=== PATIENT | female | born 1935 | race Caucasian/White ===

== ENCOUNTER 2017-03-30 01:04 | Inpatient (IN) | payer OTHER, MEDICARE ==
[~2017-03-30] VITALS: Ht 144.8 cm; Wt 81.6 kg
[~2017-03-30 01:04] MED LIST: ASPI-495 PO; CARV12.5 PO; CLOP75TA2 PO; DILT240T8 PO; DISO150C4 PO; FLUT1DIS3 IH; HYDR100T27 PO; INSU100V7 SQ; LIRA0.6P SQ; OLME1TAB3 PO; POTA10CA43 PO; SIMV10TA6 PO; SITA1TAB6 PO
--- NOTE | 2017-03-30 01:09 | NUR ---
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 pt denies ko. received pt aaox4 no acute distress noted, resp even and unlabored. er md at bedside to eval pt with orders received. pt son at bedside.
[2017-03-30] MEDS ORDERED: HYDROMORPHONE 1 MG/1 ML DISP.SYRIN ONE (01:12)
[2017-03-30] MEDS ORDERED: ONDANSETRON HCL/PF 4 MG/2 ML VIAL ONE ×2 (01:12→06:31)
--- NOTE | 2017-03-30 01:15 | NUR ---
started sl 18g to R ac, blood drawn and sent to lab.
[2017-03-30] MEDS ORDERED: ONDANSETRON HCL/PF 4 MG/2 ML VIAL IVP ONE (01:30)
[2017-03-30] MEDS ORDERED: HYDROMORPHONE INJ 2 MG/ML DISP.SYRIN IV ONE (01:30)
[2017-03-30] MEDS ORDERED: ESOM40CA PO (01:32)
[2017-03-30] MEDS ORDERED: METO-304 PO (01:32)
[2017-03-30] MEDS ORDERED: TRAZ-144 PO (01:32)
[2017-03-30] MEDS ORDERED: RANI150C4 PO (01:32)
[2017-03-30] MEDS ORDERED: [UNRECOGNIZED DRUG - CODE] PO (01:32)
[2017-03-30 01:36] LABS: BASOPHILS % (AUTO) 0.2 % (0.0-2.0); EOSINOPHILS # (AUTO) 0.3 /CMM (0.0-0.7); EOSINOPHILS % (AUTO) 3.7 % (0.0-6.0); HEMATOCRIT 40 % (33-45); HEMOGLOBIN 12.9 g/dL (11.5-14.8); LYMPHOCYTES % (AUTO) 21.4 % (20.0-44.0); MEAN CORPUSCULAR HEMOGLOBIN 26 PG (26.0-33.0); MEAN CORPUSCULAR HGB CONC 33 g/dl (31.0-36.0); MEAN CORPUSCULAR VOLUME 79 fL (82-100); MONOCYTES # (AUTO) 0.6 /CMM (0.1-1.30); NEUTROPHILS # (AUTO) 6.2 /CMM (1.8-8.9); NEUTROPHILS % (AUTO) 67.7 % (43.0-81.0); PLATELET COUNT (AUTO) 258 /CMM (150-450); RDW COEFFICIENT OF VARIATION 14.9 (11.5-15.0); RED BLOOD CELL COUNT(AUTO) 5.01 MIL/uL (4.0-5.2); WHITE BLOOD COUNT (AUTO) 9.1 K/uL (4.3-11.0)
[2017-03-30 01:43] LABS: CALCIUM, SERUM 8.8 mg/dL (8.5-10.1); CREATININE 1.4 mg/dL (0.6-1.3)
--- NOTE | 2017-03-30 01:45 | NUR ---
er md spoke to pt and pt son regarding reduction of L forearm fracture under moderate sedation, all risks explained by er md. pt and pt son verbalize understanding. consent signed by pt. pt on cardiac monitoring, continuous pox, o2@2l/nc.
[2017-03-30 01:48] LABS: INR 0.96 (0.87-1.13); PROTHROMBIN TIME 10.2 SECS (9.5-12.7)
[2017-03-30] MEDS ORDERED: ETOMIDATE 2 MG/ML VIAL ONE (01:48)
[2017-03-30] MEDS ORDERED: IV SET PRIMARY 1 EA INFUS.SET MC ONE (01:48)
[2017-03-30] MEDS ORDERED: IV NS 0.9% 500 ML IV ONE (01:48)
[2017-03-30 01:53] LABS: TROPONIN I 0.021 ng/mL (0.00-0.056)
--- NOTE | 2017-03-30 01:57 | NUR ---
er md delacruz, emt rachel, rn aravind, rt diane and myself at bedside for moderate sedation.
[2017-03-30 01:58] LABS: THYROID STIMULATING HORMONE 3.159 uIU/mL (0.358-3.74)
--- NOTE | 2017-03-30 02:09 | NUR ---
L arm post reduction xray done.
--- NOTE | 2017-03-30 02:13 | NUR ---
pt aaox4 no acute distress noted, resp even and unlabored. call light within reach. pt son at bedside.
--- NOTE | 2017-03-30 02:24 | NUR ---
pt transported to radiology for ct head.
[2017-03-30] MEDS ORDERED: IV NS 0.9% 1,000 ML BAG IV ONE (02:30)
[2017-03-30] MEDS ORDERED: ETOMIDATE 2 MG/ML VIAL IV ONE (02:30)
[2017-03-30] MEDS ORDERED: HOME MED MISCELLANEOUS PO SCH (03:00)
[2017-03-30] MEDS ORDERED: ASPIRIN 325 MG TABLET PO ONE (03:30)
--- NOTE | 2017-03-30 03:31 | NUR ---
report given to tele 1 rn. will transport pt via acls protocol.
[2017-03-30] MEDS ORDERED: ASPIRIN 81 MG TAB.CHEW ONE (03:32)
[2017-03-30 05:00] VITALS: BP 168/86
[2017-03-30] MEDS ORDERED: DEXTROSE 50%-WATER 50 ML DISP.SYRIN IV PRN (05:00)
[2017-03-30] MEDS ORDERED: INSULIN REGULAR, HUMAN 100 UNIT/ML 3 ML VIAL SQ PRN (05:00)
[2017-03-30] MEDS ORDERED: hydrALAZINE HCL 25 MG TABLET PO PRN (05:30)
[2017-03-30] MEDS ORDERED: ACETAMINOPHEN 325 MG TABLET PO PRN (05:30)
[2017-03-30] MEDS: BLOOD SUGAR DIAGNOSTIC 1 EACH STRIP IN SCH ×3 (06:06→17:04)
[2017-03-30] MEDS ORDERED: HYDROMORPHONE INJ 2 MG/ML DISP.SYRIN ONE (06:07)
[2017-03-30] MEDS ORDERED: IV SET PRIMARY PUMP SET 1 EA INFUS.SET MC ONE (06:13)
[2017-03-30] MEDS ORDERED: IV NS 0.9% 1,000 ML ONE (06:13)
[2017-03-30] MEDS: HYDROMORPHONE INJ 2 MG/ML DISP.SYRIN IV PRN ×3 (06:20→17:33)
[2017-03-30] MEDS: IV NS 0.9% 1,000 ML IV PRN (06:21)
--- NOTE | 2017-03-30 06:30 | NUR ---
admitted pt from ER, pt alert oriented, ambulates with a cane, pt fell at home, sustained a comminuted fracture and dislocation of radius and ulnar LUE. with skin abrasion on her left knee. voided to bathroom with assist, left arm elevated with pillow no numbness, tender to touch, good peripheral blood return.bp elevated due to pain. called Dr. Barrow for orders, spoke with md and she will place orders in the computer.started iv fluids, given dilaudid for pain with good relief and with zofran.will continue to monitor,sinus rhythm on monitor.
[2017-03-30] MEDS: ONDANSETRON HCL/PF 4 MG/2 ML VIAL IVP PRN ×2 (06:35→12:49)
--- NOTE | 2017-03-30 07:57 | NUR ---
rn inital notes received pt awake and alert; able to verbalize needs. on o2 inh via NC; NAD. left arm with dressing/splint; skin and circulation wnl. iv access in place with ivf infusing well. SR on the monitor. all needs attended. will monitor accordingly
[2017-03-30 08:00] VITALS: BP 168/86
[2017-03-30] MEDS: CLOPIDOGREL BISULFATE 75 MG TABLET PO SCH ×3 (08:43→11:35)
[2017-03-30] MEDS: PANTOPRAZOLE 40 MG TABLET.DR PO SCH (08:43)
[2017-03-30] MEDS: CARVEDILOL 12.5 MG TABLET PO SCH ×2 (08:44→17:08)
--- NOTE | 2017-03-30 08:46 | NUR ---
rn notes pt seen and assessed by anamaria nice; plavix dose held at this time
[2017-03-30 08:50] VITALS: BP 165/70
[2017-03-30] MEDS: INSULIN DETEMIR 100 UNIT/ML CARTRIDGE SQ SCH (09:00)
--- NOTE | 2017-03-30 10:57 | NUR ---
RN NOTES PT ASSESSEDBY DR VELAZQUEZ; INFORMED MD RE PTS BP LEVELS; OK WITH MD TO RESUME DIET
[2017-03-30] MEDS ORDERED: DISOPYRAMIDE PHOSPHATE 100 MG PO SCH (11:00)
[2017-03-30 11:22] VITALS: BP 149/69
[2017-03-30 16:00] VITALS: BP 132/54
[2017-03-30] MEDS: TRAZODONE 50 MG TABLET PO SCH (17:07)
[2017-03-30] MEDS: SIMVASTATIN 10 MG TABLET PO SCH (17:08)
--- NOTE | 2017-03-30 18:42 | NUR ---
rn closing notes PT ALERT AND ORIENTED. LEFT ARM SPLINT/DRESSING IN PLACE; SKIN AND CIRCULATION WNL. PT ABLE TO MOVE EXT OF THE AFFECTED SITE; DENIES NUMBNESS AND TINGLING. ALL MEDS GIVEN. NO SIGNIFICANT NEUROLOGICAL CHANGES NOTED. SAFETY ENSURED. PRN MED GIVEN FOR PAIN MANAGEMENT; VS STABLE. WILL ENDORSE TO NEXT SHIFT FOR CONTINUITY OF CARE IN STABLE CONDITION
[2017-03-30 20:00] VITALS: BP 136/73
[2017-03-31] VITALS: BP_SYST 103; BP_DIAS 58; BP_DIAS 69
[2017-03-31] MEDS: BLOOD SUGAR DIAGNOSTIC 1 EACH STRIP IN SCH ×4 (00:56→17:29)
[2017-03-31] MEDS: HYDROMORPHONE INJ 2 MG/ML DISP.SYRIN IV PRN ×3 (03:36→21:16)
--- NOTE | 2017-03-31 03:36 | NUR ---
PRN DILAUDID 2MG IV GIVEN FOR LEFT ARM PAIN 08/11, TOLERATED WELL AT THIS TIME, PRIMARY NURSE MADE AWARE.
[2017-03-31] MEDS: IV NS 0.9% 1,000 ML IV PRN ×2 (03:42→17:03)
[2017-03-31 04:00] VITALS: BP 103/62
[2017-03-31 06:34] LABS: CALCIUM, SERUM 8.4 mg/dL (8.5-10.1); CREATININE 1.3 mg/dL (0.6-1.3); MAGNESIUM 1.9 mg/dL (1.8-2.4); PHOSPHORUS 4.6 mg/dL (2.5-4.9); POTASSIUM 3.4 mmol/L (3.5-5.1)
[2017-03-31 06:36] LABS: BASOPHILS % (AUTO) 0.2 % (0.0-2.0); EOSINOPHILS # (AUTO) 0.1 /CMM (0.0-0.7); EOSINOPHILS % (AUTO) 0.6 % (0.0-6.0); HEMATOCRIT 38 % (33-45); HEMOGLOBIN 12.1 g/dL (11.5-14.8); LYMPHOCYTES % (AUTO) 11.4 % (20.0-44.0); MEAN CORPUSCULAR HEMOGLOBIN 26 PG (26.0-33.0); MEAN CORPUSCULAR HGB CONC 32 g/dl (31.0-36.0); MEAN CORPUSCULAR VOLUME 80 fL (82-100); MONOCYTES # (AUTO) 0.6 /CMM (0.1-1.30); MONOCYTES % (AUTO) 6.7 % (2.0-12.0); NEUTROPHILS # (AUTO) 6.9 /CMM (1.8-8.9); NEUTROPHILS % (AUTO) 81.1 % (43.0-81.0); PLATELET COUNT (AUTO) 228 /CMM (150-450); RED BLOOD CELL COUNT(AUTO) 4.69 MIL/uL (4.0-5.2); WHITE BLOOD COUNT (AUTO) 8.5 K/uL (4.3-11.0)
[2017-03-31 08:00] VITALS: BP 106/52
--- NOTE | 2017-03-31 08:56 | NUR ---
Patient sleeping at this time. Not rousable to touch. Will reassess when awake. Addendum: 03/31/17 at 0857 by PASCALE ROMERO RN Amended: Links added.
[2017-03-31] MEDS ORDERED: POTASSIUM CHLORIDE 20 MEQ TAB.PRT.SR PO SCH (10:00)
[2017-03-31 10:29] LABS: IRON, SERUM 52 ug/dl (50-175); TOTAL IRON BINDING CAPACITY 341 ug/dl (250-450)
[2017-03-31] MEDS: PANTOPRAZOLE 40 MG TABLET.DR PO SCH (10:35)
[2017-03-31] MEDS: CARVEDILOL 12.5 MG TABLET PO SCH ×2 (10:41→17:14)
[2017-03-31 10:43] LABS: FERRITIN 26 ng/mL (8-388)
[2017-03-31] MEDS: INSULIN DETEMIR 100 UNIT/ML CARTRIDGE SQ SCH (11:01)
[2017-03-31] MEDS: POTASSIUM CHLORIDE 20 MEQ TAB.PRT.SR PO SCH ×3 (13:00→17:30)
[2017-03-31 16:00] VITALS: BP 97/55
[2017-03-31] MEDS: ONDANSETRON HCL/PF 4 MG/2 ML VIAL IVP PRN ×2 (17:03→22:47)
[2017-03-31] MEDS: SIMVASTATIN 10 MG TABLET PO SCH (17:58)
[2017-03-31] MEDS: TRAZODONE 50 MG TABLET PO SCH ×2 (17:58→17:59)
--- NOTE | 2017-03-31 19:30 | NUR ---
RN INITIAL NOTES RECEIVED PATIENT IN BED, AWAKE, ALERT AND ORIENTED X4, ABLE TO VERBALIZE NEEDS, FAMILY MEMBERS AT BEDSIDE. BREATHING EVEN AND NONLABORED, TOLERATING O2 VIA NC @ 2LPM, NO S/S OF RESPIRATORY DISTRESS NOTED. IV SITE PATENT AND INTACT, FLUSHED WITH NS, FREE FROM ANY S/S OF INFILTRATION OR PHLEBITIS, IVF ONGOING ORDERED. NOTED WITH LEFT ARM SPLINT, INTACT, CAPILLARY BLOOD REFILL <3 SECONDS. PLAN OF CARE DISCUSSED WITH THE PATIENT, WHO VERBALIZES UNDERSTANDING. CALL LIGHT LEFT WITHIN EASY REACH, BED IN LOWEST AND LOCKED POSITION. WILL CONTINUE TO CLOSELY MONITOR
[2017-03-31 20:00] VITALS: BP_SYST 115; BP_SYST 127; BP_SYST 132; BP_DIAS 71; BP_DIAS 73; BP_DIAS 81
[2017-03-31] MEDS: DISOPYRAMIDE PHOSPHATE 150 MG CAPSULE PO SCH (20:21)
--- NOTE | 2017-03-31 21:43 | NUR ---
RN NOTES CODE STATUS VERIFIED WITH PATIENT AND FAMILY MEMBERS, FULL CODE AT THIS TIME. PATIENT REQUESTING FOR CONSULT WITH CRUISE COUNSELOR TO DISCUSS ADVANCE DIRECTIVES FURTHER. ALL QUESTIONS ANSWERED AT THIS TIME. WILL CONTINUE TO CLOSELY MONITOR
[2017-04-01] VITALS: BP 132/71
[2017-04-01] MEDS: BLOOD SUGAR DIAGNOSTIC 1 EACH STRIP IN SCH ×3 (00:21→12:05)
[2017-04-01] MEDS: IV NS 0.9% 1,000 ML IV PRN (00:21)
[2017-04-01] MEDS: HYDROMORPHONE INJ 2 MG/ML DISP.SYRIN IV PRN ×2 (02:48→10:19)
--- NOTE | 2017-04-01 03:00 | NUR ---
RN NOTES 0248: ADMINISTERED PAIN MEDICATION PRESCRIBED. PATIENT C/O 10/10 LEFT ARM PAIN. 0330: PATIENT VERBALIZES DECREASE IN PAIN, MEDICATION EFFECTIVE
[2017-04-01 04:00] VITALS: BP 141/69
--- NOTE | 2017-04-01 06:46 | NUR ---
TEXTED DR. MARINO FOR MRI APPROVAL.
--- NOTE | 2017-04-01 07:00 | NUR ---
RN NOTES PATIENT ENDORSED TO THE AM SHIFT NURSE FOR OSCAR.
[2017-04-01 07:15] LABS: BASOPHILS % (AUTO) 0.2 % (0.0-2.0); EOSINOPHILS # (AUTO) 0.2 /CMM (0.0-0.7); EOSINOPHILS % (AUTO) 3.2 % (0.0-6.0); HEMATOCRIT 36 % (33-45); HEMOGLOBIN 11.6 g/dL (11.5-14.8); LYMPHOCYTES # (AUTO) 1.5 /CMM (0.8-4.8); LYMPHOCYTES % (AUTO) 20.3 % (20.0-44.0); MEAN CORPUSCULAR HEMOGLOBIN 26 PG (26.0-33.0); MEAN CORPUSCULAR HGB CONC 33 g/dl (31.0-36.0); MEAN CORPUSCULAR VOLUME 81 fL (82-100); MONOCYTES # (AUTO) 0.7 /CMM (0.1-1.30); MONOCYTES % (AUTO) 8.8 % (2.0-12.0); NEUTROPHILS % (AUTO) 67.5 % (43.0-81.0); PLATELET COUNT (AUTO) 210 /CMM (150-450); RDW COEFFICIENT OF VARIATION 14.9 (11.5-15.0); RED BLOOD CELL COUNT(AUTO) 4.42 MIL/uL (4.0-5.2); WHITE BLOOD COUNT (AUTO) 7.5 K/uL (4.3-11.0)
[2017-04-01 07:37] LABS: ALBUMIN 3.2 g/dL (3.4-5.0); BILIRUBIN,TOTAL 0.3 mg/dL (0.2-1.0); CALCIUM, SERUM 8.1 mg/dL (8.5-10.1); CREATININE 1.6 mg/dL (0.6-1.3); MAGNESIUM 1.8 mg/dL (1.8-2.4); PHOSPHORUS 3.6 mg/dL (2.5-4.9); POTASSIUM 3.9 mmol/L (3.5-5.1); TOTAL PROTEIN, SERUM 5.9 g/dL (6.4-8.2)
[2017-04-01] MEDS: PANTOPRAZOLE 40 MG TABLET.DR PO SCH (08:24)
[2017-04-01] MEDS: CLOPIDOGREL BISULFATE 75 MG TABLET PO SCH (08:24)
[2017-04-01] MEDS: CARVEDILOL 12.5 MG TABLET PO SCH (08:25)
[2017-04-01] MEDS: DISOPYRAMIDE PHOSPHATE 150 MG CAPSULE PO SCH (08:28)
[2017-04-01] MEDS: INSULIN DETEMIR 100 UNIT/ML CARTRIDGE SQ SCH (08:47)
--- NOTE | 2017-04-01 09:25 | NUR ---
DEL/RN: CONSENT CONSENT AND CHECKLIST FOR MRI COMPLETED, PATIENT REFUSED MRI DUE CLAUSTROPHOBIA. MADE AWARE.
[2017-04-01] MEDS ORDERED: CELE100C PO (10:43)
[2017-04-01 12:00] VITALS: BP 135/98
[2017-04-01] MEDS ORDERED: HYDR-548 PO ×2 (14:47→15:03)
[2017-04-01] MEDS ORDERED: HYDROCODONE/APAP 10/325MG 1 EA TABLET PO PRN (15:30)
[2017-04-01 15:46] VITALS: BP 149/83
--- NOTE | 2017-04-01 15:51 | NUR ---
DEL/RN: NOTES ALL DISCHARGE INSTRUCTION GAVE TO PATIENT AND FAMILY MEMBER, VERBALIZE UNDERSTOOD, ALL PATIENT'S BELONGINGS RETURNED AND SIGNED BY PATIENT. H/L REMOVED, NO BLEEDING NOTED. INFORMED PATIENT TO FOLLOW UP WITH PCP FOR MRI, LACEMAKER AND DR. NEWELL ( ORTHO), PATIENT AWARE AND AGREED. ALL DISCHARGE MEDICATION EDUCATION PROVIDED TO PATIENT. PATIENT DENIES PAIN, NO SHORTNESS OF BREATH NOTED, CONDITION STABLE, AWAITING FOR DAUGHTER TO ADMISSION NURSE COORDINATOR. Addendum: 04/01/17 at 1605 by MARCELINO LOVE RN NOTES PATIENT D/C TO HOME VIA WHEEL CHAIR WITH STABLE CONDITION.
== END 2017-04-01 16:08 | disposition home or self-care (01) | DRG 342 ==
LOC: ER 01:47 → MED 03:28 → TELE-TD 03:54 → TELE1 11:50 → MEDSG1 03-31 10:12
PROVIDERS: ADMIT Internal Medicine; ATTEND Internal Medicine
PROC: 0RSPXZZ Reposition Left Wrist Joint, External Approach (ICD-10-PCS; principal; 2017-03-30)
DX: S52.612A Displaced fracture of left ulna styloid process, initial encounter for closed fracture (principal); N17.0 Acute kidney failure with tubular necrosis; G90.8 Other disorders of autonomic nervous system; S63.005A Unspecified dislocation of left wrist and hand, initial encounter; S52.502A Unspecified fracture of the lower end of left radius, initial encounter for closed fracture; Z95.5 Presence of coronary angioplasty implant and graft; E11.9 Type 2 diabetes mellitus without complications; E78.5 Hyperlipidemia, unspecified; J45.909 Unspecified asthma, uncomplicated; M19.90 Unspecified osteoarthritis, unspecified site; I25.10 Atherosclerotic heart disease of native coronary artery without angina pectoris; I34.0 Nonrheumatic mitral (valve) insufficiency; Z87.442 Personal history of urinary calculi; I35.0 Nonrheumatic aortic (valve) stenosis; I10 Essential (primary) hypertension; K42.9 Umbilical hernia without obstruction or gangrene; W19.XXXA Unspecified fall, initial encounter; Y93.9 Activity, unspecified; Y92.009 Unspecified place in unspecified non-institutional (private) residence as the place of occurrence of the external cause; Y99.9 Unspecified external cause status; E66.9 Obesity, unspecified; Z68.39 Body mass index [BMI] 39.0-39.9, adult; I27.2 Other secondary pulmonary hypertension; F40.240 Claustrophobia; E86.0 Dehydration; D32.0 Benign neoplasm of cerebral meninges
CPT/HCPCS: 36415; 70450-TC; 71010-TC; 73090-TC; 80048-TC; 80053-TC; 80061-TC; 82728-TC; 82962-TC; 83540-TC; 83735-TC; 84100-TC; 84439-TC; 84443-TC; 84484-TC; 85025-TC; 85730-TC; 86850-TC; 87081-TC; 93307-TC; 93880-TC; 97001-TC; A4606; J1170; J1815; J2405; J3490; J7030; J7040; Z7610

== ENCOUNTER 2018-05-12 13:19 | Emergency (ER) | payer MEDICARE, OTHER ==
[~2018-05-12] VITALS: Ht 165.1 cm; Wt 88.5 kg
[~2018-05-12 13:19] MED LIST changes: -ASPI-495 PO; +CLOP75TA15 PO; -CLOP75TA2 PO; -DILT240T8 PO; -DISO150C4 PO; +ESOM40CA PO; -FLUT1DIS3 IH; +HYDR-548 PO; -HYDR100T27 PO; +METO-357 PO; +OLME1TAB22 PO; -OLME1TAB3 PO; -POTA10CA43 PO; +RANI150C4 PO; -SITA1TAB6 PO; +TRAZ-182 PO; +[UNRECOGNIZED DRUG - CODE] PO
--- NOTE | 2018-05-12 13:55 | NUR ---
PT BB FAMILY FROM HOME FOR RT FOREARM PAIN S/P FALL WHEN GETTING OUT OF BED. ALL NEEDS ARE ATTENDED KEPT AND COMFORTABLE. PENDING ER MD HEAD
[2018-05-12 14:02] LABS: BASOPHILS % (AUTO) 0.3 % (0.0-2.0); EOSINOPHILS % (AUTO) 1.8 % (0.0-6.0); HEMATOCRIT 38 % (33-45); HEMOGLOBIN 12.7 g/dL (11.5-14.8); LYMPHOCYTES # (AUTO) 1.4 /CMM (0.8-4.8); LYMPHOCYTES % (AUTO) 11.5 % (20.0-44.0); MEAN CORPUSCULAR HGB CONC 34 g/dl (31.0-36.0); MEAN CORPUSCULAR VOLUME 77 fL (82-100); MONOCYTES # (AUTO) 0.5 /CMM (0.1-1.30); MONOCYTES % (AUTO) 4.5 % (2.0-12.0); NEUTROPHILS # (AUTO) 9.9 /CMM (1.8-8.9); NEUTROPHILS % (AUTO) 81.9 % (43.0-81.0); PLATELET COUNT (AUTO) 207 /CMM (150-450); RDW COEFFICIENT OF VARIATION 14.7 (11.5-15.0); RED BLOOD CELL COUNT(AUTO) 4.87 MIL/uL (4.0-5.2)
[2018-05-12 14:11] LABS: CALCIUM, SERUM 9.2 mg/dL (8.5-10.1); CARBON DIOXIDE 28 mmol/L (21-32); CHLORIDE 94 mmol/L (98-107); CREATININE 1.3 mg/dL (0.6-1.3); GLUCOSE 108 mg/dL (74-106); POTASSIUM 3.4 mmol/L (3.5-5.1); SODIUM SERUM 131 mmol/L (136-145); UREA NITROGEN, BLOOD 21 mg/dL (7-18)
[2018-05-12 14:15] LABS: INR 0.93 (0.85-1.15)
[2018-05-12 14:17] LABS: ALANINE AMINOTRANSFERASE 20 U/L (12-78); ALBUMIN 3.8 g/dL (3.4-5.0); ALKALINE PHOSPHATASE 63 U/L (46-116); ASPARTATE AMINOTRANSFERASE 20 U/L (15-37); BILIRUBIN,DIRECT 0.1 mg/dL (0.0-0.2); BILIRUBIN,TOTAL 0.3 mg/dL (0.2-1.0); TOTAL PROTEIN, SERUM 6.8 g/dL (6.4-8.2)
[2018-05-12 14:19] LABS: TROPONIN I < 0.017 ng/mL (0.00-0.056)
[2018-05-12 14:55] VITALS: BP 150/94
--- NOTE | 2018-05-12 14:55 | NUR ---
Patient discharged to home in stable condition. Written and verbal after care instructions given. Patient verbalizes understanding of instruction.
[2018-05-12] MEDS ORDERED: TRAMADOL HCL 50 MG TABLET ONE (15:08)
[2018-05-12] MEDS ORDERED: TRAMADOL HCL 50 MG TABLET PO ONE (15:30)
== END 2018-05-12 15:16 | disposition home or self-care (01) ==
LOC: ER 13:20
DX: S52.501A Unspecified fracture of the lower end of right radius, initial encounter for closed fracture (principal); I10 Essential (primary) hypertension; E11.9 Type 2 diabetes mellitus without complications; R55 Syncope and collapse; Z88.5 Allergy status to narcotic agent; Z88.6 Allergy status to analgesic agent; Z79.4 Long term (current) use of insulin; W19.XXXA Unspecified fall, initial encounter; Y93.89 Activity, other specified; Y92.89 Other specified places as the place of occurrence of the external cause; Y99.8 Other external cause status
CPT/HCPCS: 36415; 70450-TC; 71045-TC; 73090-TC; 80048-TC; 80076-TC; 84484-TC; 85025-TC; 85730-TC; 86850-TC; A4606; Z7610

== ENCOUNTER 2019-02-01 15:09 | Emergency (ER) | payer MEDICARE, MEDICAID ==
[~2019-02-01] VITALS: Ht 152.4 cm; Wt 86.2 kg
[~2019-02-01 15:09] MED LIST changes: +HYDR-4354 PO; -HYDR-548 PO
[2019-02-01 15:31] VITALS: BP 159/78
== END 2019-02-01 16:38 | disposition home or self-care (01) ==
LOC: ER 15:15
DX: S80.01XA Contusion of right knee, initial encounter (principal); S70.11XA Contusion of right thigh, initial encounter; I10 Essential (primary) hypertension; E11.9 Type 2 diabetes mellitus without complications; Z95.5 Presence of coronary angioplasty implant and graft; Z88.5 Allergy status to narcotic agent; Z79.4 Long term (current) use of insulin; W18.39XA Other fall on same level, initial encounter; Y93.89 Activity, other specified; Y92.89 Other specified places as the place of occurrence of the external cause; Y99.8 Other external cause status
CPT/HCPCS: 73560-TC; 93971-TC

== ENCOUNTER 2019-02-09 11:57 | Inpatient (IN) | payer MEDICARE, MEDICAID ==
[~2019-02-09] VITALS: Ht 152.4 cm; Wt 90.3 kg
--- NOTE | 2019-02-09 12:10 | NUR ---
BIB [facility] FOR C/O HIGH BP x 4 DAYS AND SOB, TO ER BED 12, HOOKED TO MONITOR, CHANGED TO CHANDA, AWAITING MD HEAD
--- NOTE | 2019-02-09 12:11 | NUR ---
SEEN AND EXAMINED BY DR. BROWN.
--- NOTE | 2019-02-09 12:20 | NUR ---
IV LINE ESTABLISHED, LABS DRAWNED AND SENT TO LAB.
[2019-02-09] MEDS ORDERED: FUROSEMIDE 20 MG/2 ML VIAL ONE (12:24)
--- NOTE | 2019-02-09 12:28 | NUR ---
PT WHEELED OUT FOR CT SCAN
[2019-02-09 12:29] LABS: BASOPHILS % (AUTO) 0.4 % (0.0-2.0); EOSINOPHILS % (AUTO) 5.3 % (0.0-6.0); HEMATOCRIT 33 % (33-45); HEMOGLOBIN 10.4 g/dL (11.5-14.8); LYMPHOCYTES # (AUTO) 1.1 /CMM (0.8-4.8); LYMPHOCYTES % (AUTO) 15.4 % (20.0-44.0); MEAN CORPUSCULAR HGB CONC 32 g/dl (31.0-36.0); MEAN CORPUSCULAR VOLUME 82 fL (82-100); MONOCYTES # (AUTO) 0.5 /CMM (0.1-1.30); MONOCYTES % (AUTO) 6.6 % (2.0-12.0); NEUTROPHILS % (AUTO) 72.3 % (43.0-81.0); PLATELET COUNT (AUTO) 278 /CMM (150-450); RED BLOOD CELL COUNT(AUTO) 3.99 MIL/uL (4.0-5.2)
[2019-02-09] MEDS ORDERED: FUROSEMIDE 20 MG/2 ML VIAL IV ONE (12:30)
[2019-02-09] MEDS ORDERED: VANCOMYCIN 1 GM in IV D5W 250 ML IV ONE (12:30)
--- NOTE | 2019-02-09 12:34 | NUR ---
CALLED HOUSE [facility]P FOR TELE BED
[2019-02-09 12:38] LABS: CALCIUM, SERUM 8.9 mg/dL (8.5-10.1); CARBON DIOXIDE 38 mmol/L (21-32); CHLORIDE 103 mmol/L (98-107); CREATININE 1.3 mg/dL (0.6-1.3); GLUCOSE 78 mg/dL (74-106); POTASSIUM 3.6 mmol/L (3.5-5.1); SODIUM SERUM 144 mmol/L (136-145); UREA NITROGEN, BLOOD 16 mg/dL (7-18)
[2019-02-09] MEDS ORDERED: BISA10SU8 RC (12:38)
[2019-02-09] MEDS ORDERED: GABA-532 PO (12:38)
[2019-02-09] MEDS ORDERED: ASPI-1169 PO (12:38)
[2019-02-09] MEDS ORDERED: SIMV40TA5 PO (12:38)
[2019-02-09] MEDS ORDERED: FLUT1DIS IH (12:38)
[2019-02-09] MEDS ORDERED: OLME1TAB16 PO (12:38)
[2019-02-09] MEDS ORDERED: [UNRECOGNIZED DRUG - CODE] PO (12:38)
[2019-02-09] MEDS ORDERED: DAPA10TA PO (12:38)
[2019-02-09] MEDS ORDERED: INSU3INS9 SQ (12:41)
[2019-02-09] MEDS ORDERED: SUCR1TAB31 PO (12:41)
[2019-02-09 12:44] LABS: ALANINE AMINOTRANSFERASE 17 U/L (12-78); ALBUMIN 3.6 g/dL (3.4-5.0); ALKALINE PHOSPHATASE 93 U/L (46-116); ASPARTATE AMINOTRANSFERASE 17 U/L (15-37); BILIRUBIN,DIRECT 0.1 mg/dL (0.0-0.2); BILIRUBIN,TOTAL 0.4 mg/dL (0.2-1.0); TOTAL PROTEIN, SERUM 6.9 g/dL (6.4-8.2)
--- NOTE | 2019-02-09 12:52 | NUR ---
ROOM GIVEN 325-2 TELE
--- NOTE | 2019-02-09 12:57 | NUR ---
CALLED [facility] FOR DR TEE LOZA
--- NOTE | 2019-02-09 12:59 | NUR ---
REPORT GIVEN TO SCOTT FRENCH FOR OSCAR, WITH ONGOING INFUSION OF ANTIBIOTIC.
--- NOTE | 2019-02-09 13:00 | NUR ---
EPIC GAS PUMP ATTENDANT WAS PAGED.
--- NOTE | 2019-02-09 13:14 | NUR ---
URINE SAMPLE SENT TO LAB
[2019-02-09 13:17] LABS: APPEARANCE,URINE Clear (CLEAR); BILIRUBIN,URINE Negative (NEGATIVE); BLOOD, URINE Negative Ery/uL (NEGATIVE); COLOR,URINE Light yellow (YELLOW); KETONES,URINE Negative (NEGATIVE); LEUKOCYTE ESTERASE ,URINE Negative (NEGATIVE); NITRITE, URINE Negative (NEGATIVE); PROTEIN,URINE Negative (NEGATIVE); UGLUCOSE Negative (NEGATIVE); UROBILINOGEN,URINE 0.2 EU/dL (0.2)
[2019-02-09] MEDS ORDERED: NITROGLYCERIN PACKET 1 GM PACKET TD ONE (13:30)
[2019-02-09] MEDS ORDERED: NITROGLYCERIN PACKET 1 GM PACKET ONE (13:37)
--- NOTE | 2019-02-09 14:00 | NUR ---
FAST FOODS WORKER ADMITTING NOTE RECEIVED PATIENT FROM ER BROUGHT BY DANIELLE CHAVEZ. PATIENT IS ALERT ORIENTED X4. ON 2L O2 VIA NC. TOLERATING WELL. PATIENT'S VITAL SIGNS ARE 214/108 WITH HR OF 56. NITRO TD WAS PLACED ON PATIENT'S CHEST IN ER. PATIENT DENIES SOB WHILE AT REST. REPORTS HEADACHE 6/10 AT THIS TIME. PATIENT WAS PLACED ON TELE MONITORING. MADE COMFORTABLE IN BED. BP RECHECKED MANUALLY 200/110. AT THIS TIME. DR. HAHN MADE AWARE. PATIENT'S FAMILY AT BEDSIDE. ABLE TO COMMUNICATE NEEDS. SKIN ASSESSMENT DONE UPON ADMISSION. IV SITE ON LEFT AC 18G, SL AT THIS TIME, PATENT AND INTACT. PATIENT IS ABLE TO AMBULATE WITH ASSISTANCE OF HER CANE. SAFETY MEASURES WERE APPLIED, BED IN LOW LOCKED POSITION, SIDE RAILS UP X2, ORIENTED TO CALL LIGHT AND PLACED WITHIN EASY REACH. AWAITING ADMIT ORDERS FROM DR HAHN. WILL MONITOR AND CARRY OUT ORDERS.
--- NOTE | 2019-02-09 15:00 | NUR ---
PATIENT'S BP IS NOW 187/85 WITH HR OF 57. CONTINUING TO MONITOR AT THIS TIME.
[2019-02-09] MEDS: LOSARTAN POTASSIUM 50 MG TABLET PO SCH (15:20)
[2019-02-09] MEDS ORDERED: BISACODYL SUPP (10 MG) 10 MG/SUPP.RECT SUPP.RECT RC PRN (15:30)
[2019-02-09] MEDS ORDERED: DEXTROSE 50%-WATER 50 ML DISP.SYRIN IV PRN (15:30)
[2019-02-09] MEDS ORDERED: Z GUARD REMEDY 2 OZ OINT TP PRN (15:30)
[2019-02-09] MEDS ORDERED: hydrALAZINE HCL 25 MG TABLET PO PRN (15:30)
[2019-02-09] MEDS ORDERED: INSULIN REGULAR, HUMAN 100 UNIT/ML 3 ML VIAL SQ PRN (15:30)
[2019-02-09] MEDS ORDERED: ONDANSETRON HCL/PF 4 MG/2 ML VIAL IVP PRN (15:30)
[2019-02-09] MEDS ORDERED: FEE PK DOSING 1 MIN EA MC ONE (15:44)
[2019-02-09] MEDS ORDERED: BUMETANIDE INJ 6 MG in IV NS 0.9% 36 ML IV ONE (16:00)
--- NOTE | 2019-02-09 16:15 | NUR ---
PATIENT WITH BP OF 187/77, THERE IS AN ORDER FOR IV BUMEX AND TOPROL HOWEVER PATIENT'S HR IS 52 ON TELE MONITORING. HOLDING MEDICATIONS AT THIS TIME. DR. LEO HAHN NOTIFIED AWAITING FURTHER ORDERS.
[2019-02-09] MEDS: BLOOD SUGAR DIAGNOSTIC 1 EACH STRIP IN SCH ×3 (16:25→21:38)
--- NOTE | 2019-02-09 16:55 | NUR ---
PATIENT'S BG WAS 64 AT 1610. 4OZ ORANGE JUICE WAS GIVEN. RECHECKED BS IS NOW 83. PATIENT IS STARTING TO HAVE DINNER AT THIS TIME. WILL MONITOR
[2019-02-09] MEDS: METOPROLOL SUCCINATE 50 MG TAB.SR.24H PO SCH (17:00)
--- NOTE | 2019-02-09 17:35 | NUR ---
MS RN CLOSING NOTE PATIENT IN BED. ALERT ORIENTED X4. ON 4L O2 VIA NC. TOLERATING WELL. IN NO APPARENT DISTRESS OR DISCOMFORT AT THIS TIME. RESPIRATIONS EVEN AND UNLABORED. DENIES SOB AT REST. PATIENT DEVELOPS SOB WITH EXERTION. ABLE TO COMMUNICATE NEEDS. LEFT AC 18G IVC WITH BUMEX RUNNING AT 10ML/HR AT THIS TIME, PATENT AND INTACT. PATIENT IS ABLE TO AMBULATE WITH ASSISTANCE AND WITH HER CANE. ON TELE MONITORING WITH SINUS RHYTHM AND HR OF 63. KEPT CLEAN AND COMFORTABLE. ALL NEEDS ATTENDED, ORDERS RENDERED. SAFETY MEASURES IN PLACE, BED IN LOW LOCKED POSITION, SIDE RAILS UP X2, CALL LIGHT WITHIN EASY REACH. WILL ENDORSE TO PM NURSE FOR OSCAR. Addendum: 02/09/19 at 2020 by IMELDA STEVENSON RN WRONG TIME
--- NOTE | 2019-02-09 18:00 | NUR ---
RECHECKED PATIENT'S VITAL SIGNS 175/103 BP AND 62 HR. STARTED ORDERED BUMEX IV AT 10ML/HR. WILL CONTINUE TO MONITOR.
--- NOTE | 2019-02-09 18:00 | NUR ---
SKIN ASSESSMENT COMPLETED, PICTURES TAKEN PLACED IN CHART. WOUND CONSULT REQUESTED.
[2019-02-09] MEDS: SIMVASTATIN 40 MG TABLET PO SCH (18:10)
[2019-02-09] MEDS: GABAPENTIN 100 MG CAPSULE PO SCH ×2 (18:10→20:57)
[2019-02-09 19:00] VITALS: BP 207/78
--- NOTE | 2019-02-09 19:00 | NUR ---
ALERT AND ORIENTATED X4 FAMILY AT THE BEDSIDE. SMILING AND NOTED BUMIX DRIP. BLOOD PRESSURE 153/76 NOTED BRUISE ON THE RIGHT SIDE OF FACE D/T FALL AT HOME.
--- NOTE | 2019-02-09 19:15 | NUR ---
TECH AT THE BEDSIDE DUPLEX VENOUS DOPPLER BEING DONE ORDERED
--- NOTE | 2019-02-09 19:35 | NUR ---
MS RN CLOSING NOTE PATIENT IN BED. ALERT ORIENTED X4. ON 4L O2 VIA NC. TOLERATING WELL. IN NO APPARENT DISTRESS OR DISCOMFORT AT THIS TIME. RESPIRATIONS EVEN AND UNLABORED. DENIES SOB AT REST. PATIENT DEVELOPS SOB WITH EXERTION. ABLE TO COMMUNICATE NEEDS. LEFT AC 18G IVC WITH BUMEX RUNNING AT 10ML/HR AT THIS TIME, PATENT AND INTACT. PATIENT IS ABLE TO AMBULATE WITH ASSISTANCE AND WITH HER CANE. ON TELE MONITORING WITH SINUS RHYTHM AND HR OF 63. KEPT CLEAN AND COMFORTABLE. ALL NEEDS ATTENDED, ORDERS RENDERED. SAFETY MEASURES IN PLACE, BED IN LOW LOCKED POSITION, SIDE RAILS UP X2, CALL LIGHT WITHIN EASY REACH. WILL ENDORSE TO PM NURSE FOR OSCAR.
[2019-02-09 20:00] VITALS: BP 153/76
[2019-02-09] MEDS: INSULIN GLARGINE, 100 UNIT/ML CARTRIDGE SQ SCH (21:40)
[2019-02-09] MEDS: ACETAMINOPHEN 325 MG TABLET PO PRN (21:42)
[2019-02-10] VITALS: BP 144/69
[2019-02-10 04:00] VITALS: BP 115/69
--- NOTE | 2019-02-10 05:43 | NUR ---
ENDING NOTES: SLEPT WELL THRU THE NIGHT AWAKENED FOR VITAL SIGNS. LATEST B/P 115/69 HR 53 ON THE MONITOR SHOW SB. SHE C/O H/A X2 RELIEVES WITH TYLENOL. SHE AMBULATES IN THE CORRIDOR AND TO THE BATHROOM WITH THE ASSIST OF ONE NURSE AND USES HER CANE. EXPLAINED TO HER ABOUT SAFETY AND THAT IF NEED TO GET OOB CALL THE NURSE AND EXPLAINED THE CALL LIGHT TO HER. HIGHEST THE B/P WENT WAS SYSTOLIC 156 GOING DOWN TO 115 SYSTOLIC BY THIS AM. BUMIX GTT FINISHED DAAST NIGHT, UP TO THE BATHROOM X2. HAT TO MEASURE OUTPUT PATIENT DIDNT USE. WILL INSTRUCT HER TO USE WHEN SHE WAKES UP THIS AM
[2019-02-10] MEDS: BLOOD SUGAR DIAGNOSTIC 1 EACH STRIP IN SCH ×4 (06:00→21:27)
--- NOTE | 2019-02-10 07:20 | NUR ---
RN OPENING NOTES PT AWAKE AND RESTING IN BED. PT HAS RIGHT KNEE SWELLING. PT HAS LEFT AC #18 INTACT AND PATENT. SAFETY PRECAUTIONS IN PLACE, BED IN LOWEST LOCKED POSITION, X2 SIDE RAILS UP AND CALL LIGHT WITHIN REACH WILL CONTINUE TO MONITOR.
[2019-02-10 07:25] LABS: BASOPHILS % (AUTO) 0.3 % (0.0-2.0); EOSINOPHILS % (AUTO) 7.1 % (0.0-6.0); HEMATOCRIT 33 % (33-45); HEMOGLOBIN 10.7 g/dL (11.5-14.8); LYMPHOCYTES # (AUTO) 1.2 /CMM (0.8-4.8); MEAN CORPUSCULAR HGB CONC 32 g/dl (31.0-36.0); MEAN CORPUSCULAR VOLUME 81 fL (82-100); MONOCYTES # (AUTO) 0.5 /CMM (0.1-1.30); MONOCYTES % (AUTO) 9.2 % (2.0-12.0); NEUTROPHILS # (AUTO) 3.2 /CMM (1.8-8.9); NEUTROPHILS % (AUTO) 61.4 % (43.0-81.0); PLATELET COUNT (AUTO) 242 /CMM (150-450); RED BLOOD CELL COUNT(AUTO) 4.06 MIL/uL (4.0-5.2); WHITE BLOOD COUNT (AUTO) 5.2 K/uL (4.3-11.0)
[2019-02-10] MEDS: ACETAMINOPHEN 325 MG TABLET PO PRN ×3 (07:37→21:28)
[2019-02-10 08:02] LABS: ALANINE AMINOTRANSFERASE 18 U/L (12-78); ALBUMIN 3.2 g/dL (3.4-5.0); ALKALINE PHOSPHATASE 80 U/L (46-116); ASPARTATE AMINOTRANSFERASE 21 U/L (15-37); BILIRUBIN,TOTAL 0.4 mg/dL (0.2-1.0); CALCIUM, SERUM 8.9 mg/dL (8.5-10.1); CARBON DIOXIDE 36 mmol/L (21-32); CHLORIDE 100 mmol/L (98-107); CREATININE 1.4 mg/dL (0.6-1.3); GLUCOSE 71 mg/dL (74-106); MAGNESIUM 1.8 mg/dL (1.8-2.4); PHOSPHORUS 4.1 mg/dL (2.5-4.9); POTASSIUM 3.1 mmol/L (3.5-5.1); SODIUM SERUM 144 mmol/L (136-145); TOTAL PROTEIN, SERUM 6.2 g/dL (6.4-8.2); UREA NITROGEN, BLOOD 16 mg/dL (7-18)
[2019-02-10 08:09] LABS: CHOLESTEROL 87 mg/dL (<200); HDL CHOLESTEROL 31 mg/dL (40-60); LDL 41 mg/dL (0-99); THYROID STIMULATING HORMONE 2.351 uIU/mL (0.358-3.74); TRIGLYCERIDES 149 mg/dL (30-150)
[2019-02-10 08:18] VITALS: BP 171/72
[2019-02-10] MEDS: FLUTICASONE/VILANTEROL 1 EACH BLST.W.DEV IH SCH (08:45)
[2019-02-10] MEDS: SUCRALFATE 1 G TABLET PO SCH (08:47)
[2019-02-10] MEDS: METOPROLOL SUCCINATE 50 MG TAB.SR.24H PO SCH ×2 (08:47→16:55)
[2019-02-10] MEDS: ASPIRIN 81 MG TAB.CHEW PO SCH (08:47)
[2019-02-10] MEDS: LOSARTAN POTASSIUM 50 MG TABLET PO SCH (08:47)
[2019-02-10] MEDS: GABAPENTIN 100 MG CAPSULE PO SCH ×4 (08:47→21:28)
[2019-02-10] MEDS: FUROSEMIDE 40 MG/4 ML VIAL IV SCH ×3 (09:22→16:55)
[2019-02-10] MEDS: POTASSIUM CHLORIDE 20 MEQ TAB.PRT.SR PO SCH ×4 (09:22→11:42)
--- NOTE | 2019-02-10 09:39 | NUR ---
WOUND CARE CONSULT: PT PRESENTS WITH FACIAL BRUISING AND BRUISING OF RT LOWER EXTREMITY, INCLUDING HEEL AREA, ALSO RT KNEE VERY SWOLLEN AND DISCOLORED WITH DRY BLACK ESCHAR. RECOMMEND SURGICAL/ORTHO CONSULT. PT ABLE TO ASSIST WITH REPOSITIONING IN BED AND IS MOSTLY CONTINENT. PT STATES HAS SOME STRESS INCONTINENCE OF URINE AT TIMES. RECOMMENDATIONS MADE FOR SKIN PROTECTION. DISCUSSED WITH NURSING STAFF. WILL SEE PRN. TUCKER IN AGREEMENT WITH PLAN OF CARE. Addendum: 02/10/19 at 0941 by ANNA LANGFORDU Amended: Links added. Addendum: 02/10/19 at 1001 by ANNA LANGFORDU MSG LEFT FOR SHEYLA CANTOR P.ANoah FOR CONSULT PER DR GRAY.
[2019-02-10] MEDS ORDERED: FAMOTIDINE (20 MG) 20 MG TABLET PO PRN (10:30)
[2019-02-10 10:59] LABS: THYROID STIMULATING HORMONE 2.412 uIU/mL (0.358-3.74)
--- NOTE | 2019-02-10 11:55 | NUR ---
RN NOTES CALLED PAGING SERVICE FOR ENGINE SETTER DR FOR ORTHO CONSULT. WILL FOLLOW UP.
[2019-02-10] MEDS: VANCOMYCIN 1 GM in IV D5W 250 ML IV SCH (13:47)
[2019-02-10 16:00] VITALS: BP 164/75
[2019-02-10] MEDS: SIMVASTATIN 40 MG TABLET PO SCH (17:05)
--- NOTE | 2019-02-10 17:08 | NUR ---
RN NOTES PT BLOOD SUGAR 153. PT REFUSES INSULIN AT THIS TIME.
--- NOTE | 2019-02-10 19:10 | NUR ---
RN CLOSING NOTES RECEIVED PT IN BED AWAKE AND RESTING. PT HAS LEFT AC #18 PATENT AND INTACT. NO COMPLAINTS OF PAIN AT THIS TIME. BREATHING EVEN AND UNLABORED WITH NO S/S OF ACUTE DISTRESS OR SOB. SAFETY PRECAUTIONS IN PLACE WITH BED IN LOWEST LOCKED POSITION AND SIDE RAILS UP X2. CALL LIGHT WITHIN REACH. WILL CONTINUE TO MONITOR. Addendum: 02/10/19 at 2018 by STACEY BOWDEN RN OPENING NOTES
--- NOTE | 2019-02-10 19:43 | NUR ---
RN CLOSING NOTES PT AWAKE AND RESTING IN BED. PT HAS RIGHT KNEE SWELLING. PT HAS LEFT AC #18 INTACT AND PATENT. ALL PATIENT NEEDS MET DURING SHIFT. PT REQUESTED PRN TYLENOL FOR PAIN MANAGEMENT. SAFETY PRECAUTIONS IN PLACE, BED IN LOWEST LOCKED POSITION, X2 SIDE RAILS UP AND CALL LIGHT WITHIN REACH WILL ENDORSE TO BATH TESTER NURSE FOR CONTINUITY OF CARE.
[2019-02-10 20:00] VITALS: BP 155/72
[2019-02-10] MEDS: INSULIN GLARGINE, 100 UNIT/ML CARTRIDGE SQ SCH (21:26)
--- NOTE | 2019-02-10 21:27 | NUR ---
MS RN NOTES PT REFUSED REGULAR INSULIN PER SLIDING SCALE, PT ONLY RECEIVED INSULIN LANTUS.
[2019-02-11] MEDS: BLOOD SUGAR DIAGNOSTIC 1 EACH STRIP IN SCH ×4 (07:13→22:35)
--- NOTE | 2019-02-11 07:30 | NUR ---
RN OPENING NOTES PT AWAKE AND RESTING IN BED. PT HAS RIGHT KNEE PAIN. WILL FOLLOW UP WITH PAIN MANAGEMENT. PT HAS PRN TYLENOL. PT HAS LEFT AC #18 INTACT AND PATENT. ALL PATIENT NEEDS MET DURING SHIFT. SAFETY PRECAUTIONS IN PLACE, BED IN LOWEST LOCKED POSITION, X2 SIDE RAILS UP AND CALL LIGHT WITHIN REACH WILL CONTINUE TO MONITOR.
[2019-02-11 07:32] LABS: BASOPHILS % (AUTO) 0.4 % (0.0-2.0); EOSINOPHILS % (AUTO) 4.8 % (0.0-6.0); HEMATOCRIT 37 % (33-45); HEMOGLOBIN 11.9 g/dL (11.5-14.8); LYMPHOCYTES # (AUTO) 1.3 /CMM (0.8-4.8); MEAN CORPUSCULAR HGB CONC 32 g/dl (31.0-36.0); MEAN CORPUSCULAR VOLUME 80 fL (82-100); MONOCYTES # (AUTO) 0.6 /CMM (0.1-1.30); MONOCYTES % (AUTO) 8.4 % (2.0-12.0); NEUTROPHILS # (AUTO) 4.5 /CMM (1.8-8.9); NEUTROPHILS % (AUTO) 67.4 % (43.0-81.0); PLATELET COUNT (AUTO) 282 /CMM (150-450); RED BLOOD CELL COUNT(AUTO) 4.58 MIL/uL (4.0-5.2); WHITE BLOOD COUNT (AUTO) 6.6 K/uL (4.3-11.0)
--- NOTE | 2019-02-11 07:42 | NUR ---
MS RN NOTES PT IN BED AWAKE AND ALERT. PT A/O X4 AND ABLE TO MAKE NEEDS KNOWN. PT HAS LEFT AC #18 PATENT AND INTACT. BREATHING EVEN AND UNLABORED WITH NO S/S OF ACUTE DISTRESS OR SOB THROUGHOUT SHIFT. SAFETY PRECAUTIONS IN PLACE WITH BED IN LOWEST LOCKED POSITION AND SIDE RAILS UP X2. CALL LIGHT WITHIN REACH. WILL ENDORSE TO ONCOMING NURSE FOR CONTINUATION OF CARE.
[2019-02-11] MEDS: ACETAMINOPHEN 325 MG TABLET PO PRN ×2 (07:43→23:06)
[2019-02-11 07:52] LABS: ALANINE AMINOTRANSFERASE 15 U/L (12-78); ALBUMIN 3.4 g/dL (3.4-5.0); ALKALINE PHOSPHATASE 84 U/L (46-116); ASPARTATE AMINOTRANSFERASE 18 U/L (15-37); BILIRUBIN,TOTAL 0.4 mg/dL (0.2-1.0); CARBON DIOXIDE 34 mmol/L (21-32); CHLORIDE 101 mmol/L (98-107); CREATININE 1.4 mg/dL (0.6-1.3); GLUCOSE 94 mg/dL (74-106); MAGNESIUM 1.9 mg/dL (1.8-2.4); PHOSPHORUS 3.6 mg/dL (2.5-4.9); POTASSIUM 3.5 mmol/L (3.5-5.1); SODIUM SERUM 144 mmol/L (136-145); TOTAL PROTEIN, SERUM 6.7 g/dL (6.4-8.2); UREA NITROGEN, BLOOD 19 mg/dL (7-18)
[2019-02-11 08:00] VITALS: BP 159/71
[2019-02-11] MEDS ORDERED: FUROSEMIDE 100 MG/10 ML VIAL IV SCH (08:00)
[2019-02-11] MEDS: FLUTICASONE/VILANTEROL 1 EACH BLST.W.DEV IH SCH (08:59)
[2019-02-11] MEDS: POTASSIUM CHLORIDE 20 MEQ TAB.PRT.SR PO SCH ×3 (08:59→10:03)
[2019-02-11] MEDS: ASPIRIN 81 MG TAB.CHEW PO SCH (08:59)
[2019-02-11] MEDS: METOLAZONE 2.5 MG TABLET PO SCH (09:00)
[2019-02-11] MEDS: LOSARTAN POTASSIUM 50 MG TABLET PO SCH (09:00)
[2019-02-11] MEDS: GABAPENTIN 100 MG CAPSULE PO SCH ×4 (09:00→21:47)
[2019-02-11] MEDS: METOPROLOL SUCCINATE 50 MG TAB.SR.24H PO SCH (09:01)
[2019-02-11] MEDS: SUCRALFATE 1 G TABLET PO SCH (09:03)
--- NOTE | 2019-02-11 09:30 | NUR ---
RN NOTES SPOKE WITH KATTY AT [facility]. PER KATTY WILL PAGE ALI TO CONSULT WITH PATIENT FOR RIGHT KNEE SWELLING.
[2019-02-11] MEDS: FUROSEMIDE 100 MG/10 ML VIAL IV SCH ×2 (12:22→17:39)
[2019-02-11] MEDS: AMLODIPINE BESYLATE 5 MG TABLET PO SCH (12:27)
[2019-02-11] MEDS: CEFTRIAXONE 1 G in IV D5W 50 ML IV SCH (12:29)
[2019-02-11] MEDS: VANCOMYCIN 1 GM in IV D5W 250 ML IV SCH (15:15)
[2019-02-11] MEDS: TRAMADOL HCL 50 MG TABLET PO PRN (15:15)
--- NOTE | 2019-02-11 15:58 | NUR ---
TEXTED DR. MARINO FOR MRI KNEE APPROVAL.
[2019-02-11 16:08] VITALS: BP 132/82
[2019-02-11] MEDS: SIMVASTATIN 40 MG TABLET PO SCH (17:39)
--- NOTE | 2019-02-11 19:10 | NUR ---
MS RN NOTES RECEIVED PT IN BED AWAKE AND ALERT. PT A/O X4 AND ABLE TO MAKE NEEDS KNOWN. PT HAS LEFT WRIST #22 PATENT AND INTACT. BREATHING EVEN AND UNLABORED WITH NO S/S OF ACUTE DISTRESS OR SOB NOTED. SAFETY PRECAUTIONS IN PLACE WITH BED IN LOWEST LOCKED POSITION AND SIDE RAILS UP X2. CALL LIGHT WITHIN REACH. WILL CONTINUE TO MONITOR.
[2019-02-11 20:00] VITALS: BP 147/69
--- NOTE | 2019-02-11 20:04 | NUR ---
RN CLOSING NOTES PT AWAKE AND RESTING IN BED. PT HAS RIGHT KNEE SWELLING. PT HAS LEFT WRIST #22 INTACT AND PATENT. ALL PATIENT NEEDS MET DURING SHIFT. SAFETY PRECAUTIONS IN PLACE, BED IN LOWEST LOCKED POSITION, X2 SIDE RAILS UP AND CALL LIGHT WITHIN REACH WILL ENDORSE TO DOG RAISER NURSE FOR CONTINUITY OF CARE.
--- NOTE | 2019-02-11 20:46 | NUR ---
MS RN NOTES PT SENT WITH CASH REGISTER MECHANIC TO GET MRI ON KNEE. PT IN STABLE CONDITION.
--- NOTE | 2019-02-11 21:30 | NUR ---
MS RN NOTES PT RECEIVED BACK FROM MRI IN STABLE CONDITION.
[2019-02-11] MEDS: INSULIN GLARGINE, 100 UNIT/ML CARTRIDGE SQ SCH (22:35)
--- NOTE | 2019-02-11 23:09 | NUR ---
MS RN NOTES PT REFUSED SS INSULIN, ONLY RECEIVED LANTUS INSULIN.
[2019-02-12] MEDS: TRAMADOL HCL 50 MG TABLET PO PRN ×2 (03:18→11:27)
[2019-02-12] MEDS: BLOOD SUGAR DIAGNOSTIC 1 EACH STRIP IN SCH ×3 (06:48→17:24)
--- NOTE | 2019-02-12 07:39 | NUR ---
MS RN NOTES PT IN BED ASLEEP BUT EASILY AWOKEN VERBALLY OR BY TOUCH. PT A/O X4 AND ABLE TO MAKE NEEDS KNOWN. PT HAS LEFT WRIST 22G SL PATENT AND INTACT. BREATHING EVEN AND UNLABORED WITH NO S/S OF ACUTE DISTRESS OR SOB THROUGHOUT SHIFT. SAFETY PRECAUTIONS IN PLACE WITH BED IN LOWEST LOCKED POSITION AND SIDE RAILS UP X2. CALL LIGHT WITHIN REACH. WILL ENDORSE TO ONCOMING NURSE FOR CONTINUATION OF CARE.
[2019-02-12 07:59] LABS: BASOPHILS % (AUTO) 0.4 % (0.0-2.0); EOSINOPHILS % (AUTO) 4.2 % (0.0-6.0); HEMATOCRIT 38 % (33-45); HEMOGLOBIN 12.4 g/dL (11.5-14.8); LYMPHOCYTES # (AUTO) 1.6 /CMM (0.8-4.8); LYMPHOCYTES % (AUTO) 20.3 % (20.0-44.0); MEAN CORPUSCULAR HGB CONC 32 g/dl (31.0-36.0); MEAN CORPUSCULAR VOLUME 80 fL (82-100); MONOCYTES # (AUTO) 0.7 /CMM (0.1-1.30); MONOCYTES % (AUTO) 8.8 % (2.0-12.0); NEUTROPHILS # (AUTO) 5.3 /CMM (1.8-8.9); NEUTROPHILS % (AUTO) 66.3 % (43.0-81.0); PLATELET COUNT (AUTO) 287 /CMM (150-450); RED BLOOD CELL COUNT(AUTO) 4.77 MIL/uL (4.0-5.2); WHITE BLOOD COUNT (AUTO) 7.9 K/uL (4.3-11.0)
[2019-02-12 08:00] VITALS: BP 116/78
--- NOTE | 2019-02-12 08:03 | NUR ---
MS RN Opening Notes Patient asleep, resting in bed. Semi-Fowlers position. Alert and oriented x4, able to make needs known. No complaints of pain at this time. Respirations even and unlabored on room air, no acute distress noted. Peripheral IV to the left wrist 22 gauge, intact, patent and saline locked. Updated patient on current plan of care and safety measures. Safety and fall precautions in place: bed in lowest and locked position, side rails up x2, bed alarm on, call light and personal possessions within reach. Will continue to monitor and intervene as needed.
[2019-02-12 08:14] LABS: ALANINE AMINOTRANSFERASE 17 U/L (12-78); ALBUMIN 3.5 g/dL (3.4-5.0); ALKALINE PHOSPHATASE 102 U/L (46-116); ASPARTATE AMINOTRANSFERASE 14 U/L (15-37); BILIRUBIN,TOTAL 0.3 mg/dL (0.2-1.0); CALCIUM, SERUM 9.3 mg/dL (8.5-10.1); CARBON DIOXIDE 32 mmol/L (21-32); CHLORIDE 97 mmol/L (98-107); CREATININE 1.8 mg/dL (0.6-1.3); GLUCOSE 151 mg/dL (74-106); MAGNESIUM 1.8 mg/dL (1.8-2.4); PHOSPHORUS 5.9 mg/dL (2.5-4.9); POTASSIUM 3.6 mmol/L (3.5-5.1); SODIUM SERUM 139 mmol/L (136-145); TOTAL PROTEIN, SERUM 6.7 g/dL (6.4-8.2); UREA NITROGEN, BLOOD 32 mg/dL (7-18)
[2019-02-12] MEDS ORDERED: METOPROLOL SUCCINATE 50 MG TAB.SR.24H PO SCH (09:00)
[2019-02-12] MEDS: LOSARTAN POTASSIUM 50 MG TABLET PO SCH (09:00)
[2019-02-12] MEDS: FUROSEMIDE 100 MG/10 ML VIAL IV SCH ×2 (09:00→17:00)
[2019-02-12] MEDS: FLUTICASONE/VILANTEROL 1 EACH BLST.W.DEV IH SCH (09:00)
[2019-02-12] MEDS: GABAPENTIN 100 MG CAPSULE PO SCH ×3 (09:25→17:00)
[2019-02-12] MEDS: ACETAMINOPHEN 325 MG TABLET PO PRN (09:25)
[2019-02-12] MEDS: ASPIRIN 81 MG TAB.CHEW PO SCH (09:26)
[2019-02-12] MEDS: SUCRALFATE 1 G TABLET PO SCH (09:26)
[2019-02-12 09:27] VITALS: BP 116/78
[2019-02-12] MEDS: METOLAZONE 2.5 MG TABLET PO SCH (09:27)
[2019-02-12] MEDS: AMLODIPINE BESYLATE 5 MG TABLET PO SCH (09:27)
[2019-02-12] MEDS: CEFTRIAXONE 1 G in IV D5W 50 ML IV SCH (11:28)
[2019-02-12] MEDS: VANCOMYCIN 1 GM in IV D5W 250 ML IV SCH (13:58)
[2019-02-12] MEDS: SIMVASTATIN 40 MG TABLET PO SCH (17:24)
--- NOTE | 2019-02-12 17:45 | NUR ---
MS allergist/pediatric pulmonologist Notes Patient currently alert and oriented x4, able to make needs known. No complaints of pain at this time. Respirations even and unlabored on room air, no acute distress noted. Peripheral IV to the left wrist 22 gauge removed with catheter tip intact. No redness, swelling or bleeding of the site noted. Patient tolerating oral fluids and foods. Ambulates with steady gait and a cane (home DME). Skin assessment completed, photos noted in chart. Patient discharged with all personal belongings including clothing and valuables as noted on belongings form, verified with signature. Discharge instructions and Exitcare provided to patient, including prescription given to patient, verbalized understanding and acknowledged via signature on discharge form. Copies placed in chart. ID band removed from patient. Accompanied to front lobby of hospital by wheelchair by HIEU [place]. Patient left by private ride from daughter in stable condition.
== END 2019-02-12 17:50 | disposition home or self-care (01) | DRG 602 ==
LOC: ER 12:05 → TELE 13:23 → MED 02-10 12:17
PROVIDERS: ADMIT Nurse Practitioner Acute Care; ATTEND Internal Medicine
PROC: 0S9C3ZX Drainage of Right Knee Joint, Percutaneous Approach, Diagnostic (ICD-10-PCS; principal; 2019-02-11)
DX: L03.115 Cellulitis of right lower limb (principal); J96.01 Acute respiratory failure with hypoxia; I50.33 Acute on chronic diastolic (congestive) heart failure; E66.2 Morbid (severe) obesity with alveolar hypoventilation; N17.9 Acute kidney failure, unspecified; M70.41 Prepatellar bursitis, right knee; I11.0 Hypertensive heart disease with heart failure; K21.9 Gastro-esophageal reflux disease without esophagitis; J44.9 Chronic obstructive pulmonary disease, unspecified; Z87.19 Personal history of other diseases of the digestive system; D63.8 Anemia in other chronic diseases classified elsewhere; Z88.1 Allergy status to other antibiotic agents; Z88.5 Allergy status to narcotic agent; Z79.4 Long term (current) use of insulin; Z79.82 Long term (current) use of aspirin; Z79.899 Other long term (current) drug therapy; E11.36 Type 2 diabetes mellitus with diabetic cataract; E78.5 Hyperlipidemia, unspecified; I25.10 Atherosclerotic heart disease of native coronary artery without angina pectoris; I25.2 Old myocardial infarction; N20.0 Calculus of kidney; I08.0 Rheumatic disorders of both mitral and aortic valves; E87.6 Hypokalemia; Z95.5 Presence of coronary angioplasty implant and graft; Z91.81 History of falling; Z90.49 Acquired absence of other specified parts of digestive tract; Z87.442 Personal history of urinary calculi; Z86.011 Personal history of benign neoplasm of the brain; Z82.49 Family history of ischemic heart disease and other diseases of the circulatory system; Z79.02 Long term (current) use of antithrombotics/antiplatelets; M19.90 Unspecified osteoarthritis, unspecified site; L85.3 Xerosis cutis; B35.9 Dermatophytosis, unspecified; W19.XXXA Unspecified fall, initial encounter; Y92.009 Unspecified place in unspecified non-institutional (private) residence as the place of occurrence of the external cause; S00.11XA Contusion of right eyelid and periocular area, initial encounter
CPT/HCPCS: 36415; 70450-TC; 71045-TC; 73562; 73721-TC; 80048-TC; 80053-TC; 80061-TC; 80076-TC; 80202-TC; 81000-TC; 82728-TC; 82962-TC; 83540-TC; 83605-TC; 83735-TC; 84100-TC; 84439-TC; 84443-TC; 84484-TC; 85025-TC; 85652-TC; 85730-TC; 86140-TC; 86850-TC; 87040-TC; 87070-TC; 87081-TC; 87086-TC; 87186-TC; 93307-TC; 93970-TC; 97116-TC; 97530-TC; A4216; G0378; J0696; J1815; J1940; J3370; J3490; J7050; J7060

== ENCOUNTER 2020-01-05 04:26 | Inpatient (IN) | payer MEDICARE, MEDICAID ==
[~2020-01-05] VITALS: Ht 152.4 cm; Wt 88.0 kg
[~2020-01-05 04:26] MED LIST changes: +ASPI-1169 PO; +BISA10SU11 RC; -CARV12.5 PO; -CLOP75TA15 PO; +DAPA10TA PO; -ESOM40CA PO; +FLUT1DIS IH; +GABA-532 PO; -HYDR-4354 PO; -INSU100V7 SQ; +INSU3INS9 SQ; -LIRA0.6P SQ; +OLME1TAB16 PO; -OLME1TAB22 PO; -RANI150C4 PO; +SIMV-49 PO; -SIMV10TA6 PO; +SUCR1TAB31 PO; -TRAZ-182 PO; +[UNRECOGNIZED DRUG - CODE] PO; -[UNRECOGNIZED DRUG - CODE] PO
--- NOTE | 2020-01-05 04:42 | NUR ---
PT IS C/O HEADACHE. 07/11
--- NOTE | 2020-01-05 04:42 | NUR ---
PT BIB RA FROM HOME WITH A C/O FEVER AND SOB. PT WAS 88% ON RA. PT IS ON 3L VIA NC SATURATING AT 96%. PT IS SLIGHTLY TACHYPNEIC AT 26 RESPIRATIONS. PT IS ON THE MONITOR AND CONTINUOUS PULSE OX.
[2020-01-05] MEDS ORDERED: ONDANSETRON HCL/PF 4 MG/2 ML VIAL ONE (04:44)
--- NOTE | 2020-01-05 04:50 | NUR ---
20G IV STARTED IN LFA. BLOOD DRAWN AND BLOOD CULTURES X2 DRAWN.
[2020-01-05] MEDS ORDERED: TICA90TA PO (04:51)
[2020-01-05] MEDS ORDERED: ESOM40CA PO (04:51)
[2020-01-05] MEDS ORDERED: POTA-10 PO (04:51)
[2020-01-05] MEDS ORDERED: PANT40TA4 PO (04:51)
[2020-01-05 04:55] LABS: BASOPHILS % (AUTO) 0.3 % (0.0-2.0); EOSINOPHILS % (AUTO) 1.4 % (0.0-6.0); HEMATOCRIT 40 % (33-45); HEMOGLOBIN 13.1 g/dL (11.5-14.8); LYMPHOCYTES # (AUTO) 0.6 /CMM (0.8-4.8); MEAN CORPUSCULAR HGB CONC 32 g/dl (31.0-36.0); MEAN CORPUSCULAR VOLUME 81 fL (82-100); MONOCYTES # (AUTO) 0.6 /CMM (0.1-1.30); MONOCYTES % (AUTO) 8.5 % (2.0-12.0); NEUTROPHILS % (AUTO) 81.8 % (43.0-81.0); PLATELET COUNT (AUTO) 161 /CMM (150-450); RED BLOOD CELL COUNT(AUTO) 4.99 MIL/uL (4.0-5.2); WHITE BLOOD COUNT (AUTO) 7.4 K/uL (4.3-11.0)
[2020-01-05] MEDS ORDERED: IV NS 0.9% 1,000 ML BAG IV ONE (05:00)
[2020-01-05] MEDS ORDERED: ONDANSETRON HCL/PF 4 MG/2 ML VIAL IVP ONE (05:00)
--- NOTE | 2020-01-05 05:00 | NUR ---
IN AND OUT/STRIAGHT CATH DONE AND URINE SAMPLE SENT TO LAB.
--- NOTE | 2020-01-05 05:03 | NUR ---
FLU SWAB SENT TO LAB
[2020-01-05 05:07] LABS: CALCIUM, SERUM 9.8 mg/dL (8.5-10.1); CARBON DIOXIDE 26 mmol/L (21-32); CHLORIDE 98 mmol/L (98-107); CREATININE 1.4 mg/dL (0.6-1.3); GLUCOSE 156 mg/dL (74-106); SODIUM SERUM 137 mmol/L (136-145); UREA NITROGEN, BLOOD 17 mg/dL (7-18)
[2020-01-05] MEDS ORDERED: ACETAMINOPHEN ES 500 MG TABLET ONE (05:10)
--- NOTE | 2020-01-05 05:17 | NUR ---
CXR DONE AT THE BEDSIDE.
[2020-01-05 05:20] LABS: ALANINE AMINOTRANSFERASE 18 U/L (12-78); ALKALINE PHOSPHATASE 75 U/L (46-116); ASPARTATE AMINOTRANSFERASE 20 U/L (15-37); BILIRUBIN,TOTAL 0.2 mg/dL (0.2-1.0); TOTAL PROTEIN, SERUM 7.4 g/dL (6.4-8.2)
[2020-01-05 05:26] LABS: APPEARANCE,URINE Clear (CLEAR); BILIRUBIN,URINE Negative (NEGATIVE); BLOOD, URINE Negative Ery/uL (NEGATIVE); COLOR,URINE Yellow (YELLOW); KETONES,URINE Trace (NEGATIVE); LEUKOCYTE ESTERASE ,URINE Negative (NEGATIVE); NITRITE, URINE Negative (NEGATIVE); PH,URINE 5.5 (5.0-8.0); PROTEIN,URINE Negative (NEGATIVE); UGLUCOSE Negative (NEGATIVE); UROBILINOGEN,URINE 0.2 EU/dL (0.2)
--- NOTE | 2020-01-05 05:28 | NUR ---
NS HELD. PT'S BNP IS 2496.
[2020-01-05] MEDS ORDERED: ACETAMINOPHEN ES 500 MG TABLET PO ONE (05:30)
--- NOTE | 2020-01-05 05:42 | NUR ---
CALLING REPORT TO TELE NURSE. PT IS GOING TO TELE 117-2.
--- NOTE | 2020-01-05 05:46 | NUR ---
REPORT GIVEN TO SCOTT PATTERSON
--- NOTE | 2020-01-05 05:59 | NUR ---
PT APPEARS TO BE RESTING COMFORTABLY WITH NO S/S OF PAIN OR DISTRESS NOTED.
--- NOTE | 2020-01-05 06:08 | NUR ---
PT WOKE UP COUGHING. PT C/O PAIN IN HER THROAT WITH THE COUGH. PT STATED THAT HER HEADACHE WAS STILL THERE, BUT A LITTLE BIT BETTER.
[2020-01-05 06:40] VITALS: BP 111/78
--- NOTE | 2020-01-05 06:40 | NUR ---
EMS MANAGER OPENING NOTES RECEIVED PATIENT FROM ER VIA RNEY SAFELY TRANSFERRED TO BED, AWAKE ALERT AND ORIENTED X4, NOTED WITH SOB ON EXERTION, ON 3.5 L 02 NC TOLERATING WELL. IV SITE TO LEFT FA #20 G INTACT AND PATENT, BELONGINGS LIST DONE, PATIENT KEPT CLEAN AND DRY. REMAINS COMFORTABLE AT THIS TIME, ON CARDIAC TELE MONITOR SR 96. ORIENTED TO STAFF AND CALL LIGHT AND KEPT WITHIN REACH, LOW BED AND LOCKED, BED ALARM IN PLACE, DR. ASHLEY MADE AWARE, PENDING ADMITTING ORDERS WILL ENDORSE TO NEXT SHIFT.
--- NOTE | 2020-01-05 07:20 | NUR ---
RN OPENING NOTES PT IS AWAKE AND COOPERATIVE. ADMISSION ORDERS IN WILL CONTINUE WITH ADMISSION. PT REFUSED PHOTOS AT THIS TIME STATES SHE IS TIRED AND TO COME BACK LATER.
[2020-01-05] MEDS ORDERED: BISACODYL SUPP (10 MG) 10 MG/SUPP.RECT SUPP.RECT RC PRN (07:30)
[2020-01-05] MEDS ORDERED: ENOXAPARIN SODIUM 40 MG/0.4 ML DISP.SYRIN SQ SCH (07:30)
--- NOTE | 2020-01-05 07:58 | NUR ---
RT NOTE EKG DONE AND RESULTS GIVEN TO MANDO CHAVEZ.
[2020-01-05 08:00] VITALS: BP 121/68
[2020-01-05] MEDS ORDERED: PIPERACILLIN /TAZOBACTAM 3.375 G in IV D5W 50 ML IV SCH (08:00)
[2020-01-05] MEDS ORDERED: FEE PK DOSING 1 MIN EA MC ONE (08:15)
[2020-01-05] MEDS: ASPIRIN 81 MG TAB.CHEW PO SCH (08:39)
[2020-01-05] MEDS: SUCRALFATE 1 G TABLET PO SCH (08:39)
[2020-01-05] MEDS: FLUTICASONE/VILANTEROL 1 EACH BLST.W.DEV IH SCH (08:40)
[2020-01-05] MEDS: GABAPENTIN 100 MG CAPSULE PO SCH ×4 (08:40→21:05)
[2020-01-05] MEDS: METOPROLOL TARTRATE 50 MG TABLET PO SCH ×2 (08:40→21:05)
[2020-01-05] MEDS: PANTOPRAZOLE 40 MG TABLET.DR PO SCH (08:40)
[2020-01-05] MEDS ORDERED: METOPROLOL SUCCINATE 50 MG TAB.SR.24H PO SCH (09:00)
[2020-01-05] MEDS ORDERED: Medication Not On Formulary EA (Esomeprazole Mag Trihydrate (Nexium) 40 MG) PO SCH (09:00)
[2020-01-05] MEDS: VANCOMYCIN 1 GM in IV D5W 250 ML IV SCH (09:48)
[2020-01-05] MEDS ORDERED: FUROSEMIDE 40 MG TABLET PO SCH (11:00)
[2020-01-05] MEDS: PIPERACILLIN /TAZOBACTAM 2.25 G in IV D5W 50 ML IV SCH ×3 (11:14→20:06)
[2020-01-05 12:00] VITALS: BP 101/41
[2020-01-05 16:00] VITALS: BP 105/49
[2020-01-05] MEDS ORDERED: ASPIRIN 325 MG TABLET PO PRN (17:30)
[2020-01-05] MEDS ORDERED: SIMVASTATIN 40 MG TABLET PO SCH (18:00)
--- NOTE | 2020-01-05 18:46 | NUR ---
RN CLOSING NOTES PT REFUSED PHOTOS AT CURRENT TIME. PT DENIES PAIN AT PRESENT MOMENT AND SOB. PT IS ON 3 L O2 VIA NC. PT IS ABLE TO MAKE NEEDS KNOWN. HOB ELEVATED TO COMFORT OF PT. PT IS BED IS LOCKED AND IN LOWEST POSITION WITH CALL LIGHT IN REACH. PT IS CURRENTLY SR ON MONITOR. REPORT GIVEN TO MUSIC ARTIST RN FOR OSCAR.
[2020-01-05 20:00] VITALS: BP 105/59
--- NOTE | 2020-01-05 20:00 | NUR ---
LASER BEAM COLOR SCANNER OPERATOR OPENING NOTES RECEIVED PATIENT ON BED, AWAKE ALERT AND ORIENTED X4, NOTED WITH SOB ON EXERTION, ON 3L 02 NC TOLERATING WELL. IV SITE TO LEFT FA #20 G INTACT AND PATENT, NO SIGN AND SYMPTOMS OF RESPIRATORY DISTRESS PATIENT KEPT CLEAN AND DRY.REMAINS COMFORTABLE AT THIS TIME, ON CARDIAC TELE MONITOR SR 74 SAFETY MEASURE MAINTAINED, BED ON LOWEST POSITION, SIDE RAILS UP X2, CALL LIGHTS WITHIN REACH WILL CONT TO MONITOR
[2020-01-05] MEDS ORDERED: DEXTROSE 50%-WATER 50 ML DISP.SYRIN IV PRN (22:30)
[2020-01-06] VITALS: BP 115/80
[2020-01-06] MEDS: PIPERACILLIN /TAZOBACTAM 2.25 G in IV D5W 50 ML IV SCH ×4 (02:15→20:16)
[2020-01-06] MEDS: VANCOMYCIN 1 GM in IV D5W 250 ML IV SCH (03:14)
[2020-01-06 04:00] VITALS: BP 115/57
[2020-01-06 06:36] LABS: BASOPHILS % (AUTO) 0.4 % (0.0-2.0); EOSINOPHILS % (AUTO) 1.2 % (0.0-6.0); HEMATOCRIT 39 % (33-45); HEMOGLOBIN 12.6 g/dL (11.5-14.8); LYMPHOCYTES # (AUTO) 1.1 /CMM (0.8-4.8); LYMPHOCYTES % (AUTO) 21.6 % (20.0-44.0); MEAN CORPUSCULAR HGB CONC 32 g/dl (31.0-36.0); MEAN CORPUSCULAR VOLUME 81 fL (82-100); MONOCYTES # (AUTO) 0.7 /CMM (0.1-1.30); MONOCYTES % (AUTO) 12.8 % (2.0-12.0); NEUTROPHILS # (AUTO) 3.3 /CMM (1.8-8.9); PLATELET COUNT (AUTO) 145 /CMM (150-450); RED BLOOD CELL COUNT(AUTO) 4.89 MIL/uL (4.0-5.2); WHITE BLOOD COUNT (AUTO) 5.1 K/uL (4.3-11.0)
--- NOTE | 2020-01-06 07:00 | NUR ---
PLANT ENGINEERING MANAGER NOTES RECEIVED PATIENT FROM DIRECTOR PHONE RN. ON ASSESSMENT PATIENT COMPLAINED OF NAUSEA AND VOMITING AND HEADACHE. EMESIS X1. LEO HAHN SHAKER OUT NOTIFIED. ORDERED PRN FOR NV AND HEADACHE. PATIENT IS IN STABLE CONDITION WITH TELE MONITORING. SINUS RHYTHM. BED IN LOWEST POSITION, CALL LIGHT WITHIN REACH, BED ALARM ON. WILL CONTINUE TO MONITOR.
[2020-01-06 07:03] LABS: ALANINE AMINOTRANSFERASE 16 U/L (12-78); ALKALINE PHOSPHATASE 49 U/L (46-116); ASPARTATE AMINOTRANSFERASE 21 U/L (15-37); BILIRUBIN,TOTAL 0.3 mg/dL (0.2-1.0); CALCIUM, SERUM 7.9 mg/dL (8.5-10.1); CARBON DIOXIDE 27 mmol/L (21-32); CHLORIDE 95 mmol/L (98-107); CREATININE 2.2 mg/dL (0.6-1.3); GLUCOSE 144 mg/dL (74-106); MAGNESIUM 1.8 mg/dL (1.8-2.4); PHOSPHORUS 4.6 mg/dL (2.5-4.9); POTASSIUM 3.8 mmol/L (3.5-5.1); SODIUM SERUM 132 mmol/L (136-145); TOTAL PROTEIN, SERUM 5.9 g/dL (6.4-8.2); UREA NITROGEN, BLOOD 25 mg/dL (7-18)
[2020-01-06 07:15] LABS: CREATINE KINASE, TOTAL 24 U/L (26-192)
[2020-01-06] MEDS: BLOOD SUGAR DIAGNOSTIC 1 EACH STRIP IN SCH ×4 (07:30→21:11)
--- NOTE | 2020-01-06 07:42 | NUR ---
RN CLOSING NOTES PT ON STABLE POSITION PT DENIES PAIN AT PRESENT MOMENT AND SOB. PT IS ON 3 L O2 VIA NC. PT IS ABLE TO MAKE NEEDS KNOWN. HOB ELEVATED TO COMFORT OF PT. PT IS BED IS LOCKED AND IN LOWEST POSITION WITH CALL LIGHT IN REACH. PT IS CURRENTLY SR ON MONITOR. REPORT GIVEN TO AM SHIFT RN FOR OSCAR.
[2020-01-06 08:00] VITALS: BP 121/58
[2020-01-06] MEDS: METOPROLOL TARTRATE 50 MG TABLET PO SCH ×2 (09:00→20:17)
[2020-01-06] MEDS ORDERED: IBUPROFEN 200 MG TABLET PO PRN (10:00)
[2020-01-06] MEDS: ONDANSETRON HCL/PF 4 MG/2 ML VIAL IVP PRN ×3 (10:06→17:30)
[2020-01-06] MEDS: SUCRALFATE 1 G TABLET PO SCH (10:06)
[2020-01-06] MEDS: ASPIRIN 81 MG TAB.CHEW PO SCH (10:06)
[2020-01-06] MEDS: GABAPENTIN 100 MG CAPSULE PO SCH ×4 (10:06→20:50)
[2020-01-06] MEDS: PANTOPRAZOLE 40 MG TABLET.DR PO SCH (10:07)
[2020-01-06] MEDS: TICAGRELOR 90 MG TABLET PO SCH ×2 (10:08→18:11)
[2020-01-06] MEDS: FLUTICASONE/VILANTEROL 1 EACH BLST.W.DEV IH SCH (10:09)
[2020-01-06 16:00] VITALS: BP 85/43
[2020-01-06] MEDS: DISOPYRAMIDE PHOSPHATE 150 MG PO PRN (16:44)
[2020-01-06] MEDS ORDERED: IV NS 0.9% 250 ML IV ONE (17:30)
--- NOTE | 2020-01-06 19:30 | NUR ---
PUTTY PATCHER END OF SHIFT SUMMARY PATIENT IS IN BED, DAUGHTER AT BEDSIDE. ON OR AROUND 1700 PATIENT VS WAS 74/51 HR 97 02 95-98. DR LEO HAHN IMMEDIATELY NOTIFIED OF CHANGE OF CONDITION. ON ASSESSMENT PATIENT WAS DIAPHORETIC, COMPLAINING OF CHEST PAIN THAT RADIATED TO THE LEFT SHOULDER, AND PRESSURE. PATIENT WAS ALERT AND AROUSABLE. PATIENT PLACED IN [place], HOWEVER COMPLAINED THAT SHE COULD NOT BE IN POSITION BECAUSE OF DISCOMFORT. PATIENT PLACED BACK IN SEMI FOWLERS ON REQUEST. PER YACHT CAPTAIN ORDER 250ML BOLUS OF NS 0.9% GIVEN VIA IV. PATIENT BP IMPROVED TO 88/60 ON OR AROUND 1800. PATIENT WAS STILL SYMPTOMATIC AFTER BOLUS. EKG WAS ORDERED AND DONE BY RT. EKG RESULT GIVEN TO YACHT CAPTAIN. LEO HAHN YACHT CAPTAIN ORDERED SERIAL TROPONIN ORDERS CARRIED OUT. PATIENT REMOVED IV ACCIDENTALLY CHANGING POSITIONS IN BED ACCIDENTALLY REMOVING IV. 3 NURSES ATTEMPTED IV STICKS. WILL ENDORSE THE NEED FOR MIDLINE CATHETER TO SUPERVISOR CUSTOMER RECORDS DIVISION SO TO AVOID MORE STICKS. PATIENT WAS CONTINUOUSLY MONITORED 1-1 BY RN UNTIL ENDORSED TO SUPERVISOR CUSTOMER RECORDS DIVISION NURSE WALT. SAFETY MAINTAINED, CALL LIGHT WITHIN REACH, ENDORSED TO SUPERVISOR CUSTOMER RECORDS DIVISION NURSE TO CONTINUE CARE.
[2020-01-06 20:00] VITALS: BP 92/56
--- NOTE | 2020-01-06 20:00 | NUR ---
MS/RN OPENING NOTES RECEIVED PATIENT IN BED, HOB ELEVATED, ASSISTED WITH ALL NEEDS, ON OXYGEN VIA NC AT 3 LITER SATTING AT 97%. PATIENT FAMILY AT BEDSIDE, DISCUSSED PLAN OF CARE, REPORTED SOME PAIN FELT IN SHOULDER AND CHEST. BLOOD PRESSURE CHECKED SBP BELOW 100 AT 92/57. AND ROUTINE MEDICATION TO ADMINISTER MONITOIRNG FOR ANY CHANGES. AND RELIEF.
[2020-01-06] MEDS: INSULIN REGULAR, HUMAN 100 UNIT/ML 3 ML VIAL SQ PRN (21:26)
--- NOTE | 2020-01-06 21:48 | NUR ---
MS/RN NOTES PATIENT REPORTED FEELING BETTER, PULSE RATE AT 80, IMPROVED TELE READING AT SR AFTER SOME INTERVENTIONS. PROVIDED NOURISHMENT, REPOSITIONED FOR COMFORT.
[2020-01-07] VITALS (37 sets, daily range): BP systolic 93–139; BP diastolic 42–107
[2020-01-07] MEDS: PIPERACILLIN /TAZOBACTAM 2.25 G in IV D5W 50 ML IV SCH ×4 (01:27→21:26)
[2020-01-07] MEDS: VANCOMYCIN 1 GM in IV D5W 250 ML IV SCH (02:05)
--- NOTE | 2020-01-07 02:58 | NUR ---
MS/RN NOTES NO NEW ORDERS REPORTED BY MD ABDUL FOR CRITICAL TROPONIN LEVEL 1.542, PATIENT ASYMPTOMATIC, ASLEEP,.
[2020-01-07 06:31] LABS: BASOPHILS % (AUTO) 0.2 % (0.0-2.0); EOSINOPHILS % (AUTO) 0.4 % (0.0-6.0); HEMATOCRIT 38 % (33-45); HEMOGLOBIN 12.5 g/dL (11.5-14.8); LYMPHOCYTES % (AUTO) 17.2 % (20.0-44.0); MEAN CORPUSCULAR HGB CONC 33 g/dl (31.0-36.0); MEAN CORPUSCULAR VOLUME 80 fL (82-100); MONOCYTES # (AUTO) 0.4 /CMM (0.1-1.30); MONOCYTES % (AUTO) 7.1 % (2.0-12.0); NEUTROPHILS # (AUTO) 4.2 /CMM (1.8-8.9); NEUTROPHILS % (AUTO) 75.1 % (43.0-81.0); PLATELET COUNT (AUTO) 136 /CMM (150-450); RED BLOOD CELL COUNT(AUTO) 4.76 MIL/uL (4.0-5.2); WHITE BLOOD COUNT (AUTO) 5.5 K/uL (4.3-11.0)
[2020-01-07 06:36] LABS: ALANINE AMINOTRANSFERASE 14 U/L (12-78); ALBUMIN 2.7 g/dL (3.4-5.0); ALKALINE PHOSPHATASE 44 U/L (46-116); ASPARTATE AMINOTRANSFERASE 35 U/L (15-37); BILIRUBIN,TOTAL 0.3 mg/dL (0.2-1.0); CALCIUM, SERUM 7.8 mg/dL (8.5-10.1); CARBON DIOXIDE 24 mmol/L (21-32); CHLORIDE 92 mmol/L (98-107); CREATININE 2.1 mg/dL (0.6-1.3); GLUCOSE 180 mg/dL (74-106); MAGNESIUM 2.1 mg/dL (1.8-2.4); PHOSPHORUS 4.8 mg/dL (2.5-4.9); POTASSIUM 3.9 mmol/L (3.5-5.1); SODIUM SERUM 128 mmol/L (136-145); TOTAL PROTEIN, SERUM 5.7 g/dL (6.4-8.2); UREA NITROGEN, BLOOD 38 mg/dL (7-18)
[2020-01-07] MEDS: BLOOD SUGAR DIAGNOSTIC 1 EACH STRIP IN SCH ×4 (07:44→21:29)
[2020-01-07] MEDS: INSULIN REGULAR, HUMAN 100 UNIT/ML 3 ML VIAL SQ PRN ×2 (07:49→21:37)
[2020-01-07] MEDS: FLUTICASONE/VILANTEROL 1 EACH BLST.W.DEV IH SCH (09:00)
[2020-01-07] MEDS: GABAPENTIN 100 MG CAPSULE PO SCH ×4 (09:12→21:28)
[2020-01-07] MEDS: ASPIRIN 81 MG TAB.CHEW PO SCH (09:12)
[2020-01-07] MEDS: METOPROLOL TARTRATE 50 MG TABLET PO SCH ×2 (09:12→21:57)
[2020-01-07] MEDS: SUCRALFATE 1 G TABLET PO SCH (09:12)
[2020-01-07] MEDS: PANTOPRAZOLE 40 MG TABLET.DR PO SCH (09:12)
[2020-01-07] MEDS: TICAGRELOR 90 MG TABLET PO SCH ×2 (09:15→18:08)
--- NOTE | 2020-01-07 09:22 | NUR ---
Breakfast held per dr. Vaughan for possible procedure
[2020-01-07] MEDS: IV NS 0.9% 1,000 ML IV PRN ×3 (10:10→18:11)
--- NOTE | 2020-01-07 10:30 | NUR ---
Telephone consent obtained from Helen (pt's daughter).
[2020-01-07] MEDS ORDERED: IV NS 0.9% 500 ML IV ONE (11:54)
[2020-01-07] MEDS ORDERED: IV SET PRIMARY PUMP SET 1 EA INFUS.SET MC ONE (11:54)
[2020-01-07] MEDS ORDERED: NITROGLYCERIN ICAR 1,000 MCG/10 ML VIAL ICAR ONE (11:55)
[2020-01-07] MEDS ORDERED: VERAPAMIL HCL IV 5 MG/2 ML VIAL ONE (11:55)
[2020-01-07] MEDS ORDERED: LIDOCAINE HCL/PF 1% 30 ML SDV ONE (11:55)
[2020-01-07] MEDS ORDERED: IODIXANOL 150 ML IV ONE (11:55)
--- NOTE | 2020-01-07 12:36 | NUR ---
patient picked up by application packager staff. Patient Awake alert and oriented x4. VS are stable and within baseline. Pa on o2 via NC 2l.
[2020-01-07] MEDS ORDERED: MIDAZOLAM HCL 2 MG/2ML VIAL ONE (13:12)
[2020-01-07] MEDS ORDERED: FENTANYL PF 100MCG/2ML AMPUL ONE (13:12)
[2020-01-07] MEDS ORDERED: HEPARIN SODIUM, PORCINE 1,000 UNIT/ML VIAL ONE ×2 (13:13→13:22)
[2020-01-07] MEDS ORDERED: TICAGRELOR 90 MG TABLET PO ONE (14:23)
[2020-01-07] MEDS ORDERED: IODIXANOL 320MG/ML 50 ML IV ONE (14:24)
[2020-01-07] MEDS ORDERED: IODIXANOL 320MG/ML 100 ML IV ONE (14:29)
[2020-01-07 15:17] LABS: *SPE A/G RATIO 1.2 (0.7-1.7); *SPE ALPHA-1-GLOBULIN 0.2 g/dL (0.0-0.4); *SPE ALPHA-2-GLOBULIN 0.8 g/dL (0.4-1.0); *SPE BETA GLOBULIN 0.9 g/dL (0.7-1.3); *SPE GLOBULIN, TOTAL 2.6 g/dL (2.2-3.9); *SPE M-SPIKE 0.2 g/dL (Not Observed); *SPEGAMMA GLOBULIN 0.7 g/dL (0.4-1.8)
--- NOTE | 2020-01-07 15:30 | NUR ---
RN INITIAL NOTES RECEIVED PT AWAKE, A/OX4 FROM CARDIAC CATH. ON 02 VIA NC AT 2LPM. NO RESPIRATORY DISTRESS NOTED. NO SOB NOTED. IV LINES IN PLACE. RIGHT FEMORAL SHEATH IN PLACE. NO SIGNS OF BLEEDING NOTED. BILATERAL PEDAL PULSES NOTED. WILL KEEP FLAT ON BED. ORDERS FOLLOWED PER PROTOCOL. WILL CLOSELY MONITOR
[2020-01-07] MEDS ORDERED: ATROPINE SULFATE 1 MG/10 ML DISP.SYRIN IV PRN (18:00)
--- NOTE | 2020-01-07 18:25 | NUR ---
RN NOTES 1800 RIGHT FEMORAL SHEATH REMOVED BY STEVE. PRESSURED APPLIED FOR 20MINS. TEGADERM APPLIED. NO ACTIVE BLEEDING NOTED. NO HEMATOMA NOTED. VS FOLLOWS: BP 125/62, HR 63, RR15, 02 SAT 97% ON 02 VIA NC AT 2LPM. WILL KEEP FLAT FOR 6HRS. WILL CLOSELY MONITOR
--- NOTE | 2020-01-07 19:00 | NUR ---
RN CLOSING NOTES PT STABLE. VS WNL. REMAINS A/OX4. ON ROOM AIR. NO BLEEDING ON RIGHT FEMORAL AREA. NO HEMATOMA NOTED. NO CIRCULATORY IMPAIRMENT NOTED. CALL LIGHT WITHIN REACH. WILL CLOSELY MONITOR
--- NOTE | 2020-01-07 19:30 | NUR ---
RN NOTES RECEIVED PATIENT AWAKE ALERT ORIENTED X 4. ABLE TO MAKE KNOWN NEEDS. S/P CARDIAC CATH TODAY, DENIES PAIN AT THIS TIME. NO SOB OR ACUTE RESPIRATORY DISTRESS WITH O2 2LPM VIA NC. SATURATION 97%. VSS. RIGHT FEMORAL SITE IS CLEAN AND WITH DRY GAUZE NO ACTIVE BLEEDING PRESENT. IV SITE ON LH AND RH INTACT AND PATENT WITH NS @ 100 ML/HR. TOLERATED WELL. KEPT PT FLAT ON BED TILL 12MN AND INFORMED THE PATIENT. PT REMAINED COOPERATIVE AFTER EXPLANATION. CALL LIGHT PLACED WITHIN EASY REACH.
[2020-01-07] MEDS: ACETAMINOPHEN 325 MG TABLET PO PRN (21:28)
[2020-01-08] VITALS (35 sets, daily range): BP systolic 99–142; BP diastolic 45–112
[2020-01-08] MEDS: PIPERACILLIN /TAZOBACTAM 2.25 G in IV D5W 50 ML IV SCH ×4 (02:39→20:09)
[2020-01-08] MEDS: VANCOMYCIN 1 GM in IV D5W 250 ML IV SCH (03:14)
[2020-01-08 04:40] LABS: BASOPHILS % (AUTO) 0.2 % (0.0-2.0); EOSINOPHILS % (AUTO) 3.5 % (0.0-6.0); HEMATOCRIT 36 % (33-45); HEMOGLOBIN 11.8 g/dL (11.5-14.8); LYMPHOCYTES # (AUTO) 0.9 /CMM (0.8-4.8); LYMPHOCYTES % (AUTO) 21.4 % (20.0-44.0); MEAN CORPUSCULAR HGB CONC 33 g/dl (31.0-36.0); MEAN CORPUSCULAR VOLUME 80 fL (82-100); MONOCYTES # (AUTO) 0.3 /CMM (0.1-1.30); MONOCYTES % (AUTO) 7.2 % (2.0-12.0); NEUTROPHILS # (AUTO) 2.9 /CMM (1.8-8.9); NEUTROPHILS % (AUTO) 67.7 % (43.0-81.0); PLATELET COUNT (AUTO) 122 /CMM (150-450); RED BLOOD CELL COUNT(AUTO) 4.43 MIL/uL (4.0-5.2); WHITE BLOOD COUNT (AUTO) 4.3 K/uL (4.3-11.0)
[2020-01-08 04:59] LABS: ALANINE AMINOTRANSFERASE 12 U/L (12-78); ALBUMIN 2.8 g/dL (3.4-5.0); ALKALINE PHOSPHATASE 50 U/L (46-116); ASPARTATE AMINOTRANSFERASE 24 U/L (15-37); BILIRUBIN,TOTAL 0.3 mg/dL (0.2-1.0); CARBON DIOXIDE 28 mmol/L (21-32); CHLORIDE 101 mmol/L (98-107); CREATININE 1.6 mg/dL (0.6-1.3); GLUCOSE 182 mg/dL (74-106); MAGNESIUM 1.9 mg/dL (1.8-2.4); PHOSPHORUS 3.5 mg/dL (2.5-4.9); POTASSIUM 3.7 mmol/L (3.5-5.1); SODIUM SERUM 137 mmol/L (136-145); TOTAL PROTEIN, SERUM 5.6 g/dL (6.4-8.2); UREA NITROGEN, BLOOD 31 mg/dL (7-18)
--- NOTE | 2020-01-08 05:30 | NUR ---
RN NOTES S/E BY DR. CROWELL AT BEDSIDE
[2020-01-08] MEDS: IV NS 0.9% 1,000 ML IV PRN (06:07)
--- NOTE | 2020-01-08 06:37 | NUR ---
RN NOTES PATIENT ASLEEP WELL. NO CHANGE OF MENTAL STATUS NO SOB OR ACUTE RESPIRATORY DISTRESS. CONTINUE ON O2 2LPM VIA NC. SATURATION >93%. AFEBRILE. RIGHT FEMORAL SITE MONITORED NO ACTIVE BLEEDING NOTED. KEPT CLEAN AND DRY. NOTED PATIENT IS CONSTIPATED PRN SUPPOSITORY DULCOLAX ADMINISTERED ORDERED. KEPT PT CLEAN AND DRY. ALL NEEDS ATTENDED. PATIENT REMAINED COMPLIANT WITH CARE.
[2020-01-08] MEDS: BLOOD SUGAR DIAGNOSTIC 1 EACH STRIP IN SCH ×4 (08:00→21:56)
[2020-01-08] MEDS: INSULIN REGULAR, HUMAN 100 UNIT/ML 3 ML VIAL SQ PRN ×4 (08:04→21:51)
[2020-01-08] MEDS: FLUTICASONE/VILANTEROL 1 EACH BLST.W.DEV IH SCH (08:05)
[2020-01-08] MEDS: PANTOPRAZOLE 40 MG TABLET.DR PO SCH (08:06)
[2020-01-08] MEDS: SUCRALFATE 1 G TABLET PO SCH (08:06)
[2020-01-08] MEDS: ASPIRIN 81 MG TAB.CHEW PO SCH (08:06)
[2020-01-08] MEDS: METOPROLOL TARTRATE 50 MG TABLET PO SCH ×2 (08:06→20:21)
[2020-01-08] MEDS: GABAPENTIN 100 MG CAPSULE PO SCH ×4 (08:06→20:21)
[2020-01-08] MEDS: TICAGRELOR 90 MG TABLET PO SCH ×2 (08:06→18:00)
--- NOTE | 2020-01-08 09:05 | NUR ---
RN NOTE: RECEIVED PATIENT VIA WC DOWNGRADE FROM ICU. ENDROSEMENT WAS GIVEN BY SCOTT GARCIA. PATIENT ARRIVED IN UNIT ALERT, ORIENTED X4. IN STABLE CONDITION AND WILL CONTINUE TO MONITOR. PATIENT TO BE IN MED SURG PER DR. NASCIMENTO.
--- NOTE | 2020-01-08 09:19 | NUR ---
RN NOTE 0715: Received patient awake, A/Ox4. No c.o any discomfort. On 2LPM of O2 via NC. No respiratory distress noted at this time. PIVs intact, on IVF infusing as ordered. Went to BSD, with good UOP and 1 BM. 0900: Report given to Anisa for [facility], MS status per Dr. Walsh. Radio called for [facility], informed patient is being transferred, per radio, they will get patient in room 115-2, informed patient and Anisa RN. Transferred patient via wheelchair, no any significant changes. VSS. Belongings checked. Removed LH PIV per patient request, no bleeding, RH PIV intact.
[2020-01-08] MEDS: ACETAMINOPHEN 325 MG TABLET PO PRN ×2 (12:18→22:01)
[2020-01-08] MEDS: ONDANSETRON HCL/PF 4 MG/2 ML VIAL IVP PRN (15:30)
--- NOTE | 2020-01-08 15:56 | NUR ---
RN NOTE: LATEST TROPONIN LEVEL OF 1.004 FROM 1.783 REPORTED TO LEO HAHN DNP.
--- NOTE | 2020-01-08 19:12 | NUR ---
RN CLOSING NOTE" PATIENT IN BED. AWAKE, ALERT AND ORIENTED X4. NO PAIN REPORTED. ON ROOM AIR AND TOLERATING WELL. NO SOB, NO RESPIRATORY DISTRESS NOTED. IV SITE ON CLEAN, DRY, PATENT AND INTACT. NO ACUTE CHANGES NOTED ON SHIFT. PROCEDURE FOR XRAY OF THE ESOPHAGUS TOLERATED BY PATIENT WELL. CALL LIGHT IN REACH, SIDE RAILS UPX2. BED LOCKED, LOW AND AT SEMI-LUNDBERG'S POSITION. ENDORSED TO ONCOMING SHIFT FOR [facility].
--- NOTE | 2020-01-08 19:15 | NUR ---
MS RN OPENING NOTES: RECEIVED PATIENT SITTING IN BED TALKING TO THE VISITORS AT THE BEDSIDE. NO COMPLAIN OF PAIN. NO SOB NOTED.
[2020-01-08] MEDS: DISOPYRAMIDE PHOSPHATE 150 MG PO PRN (20:22)
--- NOTE | 2020-01-08 20:41 | NUR ---
V/S TAKEN BY HIEU GOODE, RECORDED.
--- NOTE | 2020-01-09 | NUR ---
DRESSING ON THE RIGHT GROIN INTACT WITH A MINIMAL SEROSANGUINOUS DRAINAGE. PATIENT'S BILATERAL HEELS AND SOLES ARE VERY DRY. PATIENT SAID THAT SHE PUT SOME CREAM ON HER HEELS AND FEET.
[2020-01-09] MEDS: PIPERACILLIN /TAZOBACTAM 2.25 G in IV D5W 50 ML IV SCH ×2 (01:57→07:40)
[2020-01-09] MEDS: VANCOMYCIN 1 GM in IV D5W 250 ML IV SCH (02:51)
--- NOTE | 2020-01-09 03:57 | NUR ---
PATIENT PULLED OUT THE IV ACCIDENTALLY,TIP IS INTACT, BLEEDING STOPPED. IV REINSERTED BY CHARGE NURSE MARY ON THE RIGHT FOREARM G 22.
[2020-01-09 04:00] VITALS: BP 146/75
[2020-01-09] MEDS: ACETAMINOPHEN 325 MG TABLET PO PRN ×2 (05:27→11:30)
--- NOTE | 2020-01-09 06:17 | NUR ---
MS RN CLOSING NOTES: PATIENT IS RESTING IN BED, A/O X4. NO SOB. TYLENOL 650MG PO GIVEN FOR HEADACHE AT 2201 AND AT 0530, CALL LIGHT WITHIN REACH.BED IN LOWEST AND LOCKED POSITION. BED ALARM ON.
[2020-01-09 06:24] LABS: BASOPHILS % (AUTO) 0.2 % (0.0-2.0); EOSINOPHILS % (AUTO) 4.8 % (0.0-6.0); HEMATOCRIT 37 % (33-45); HEMOGLOBIN 11.9 g/dL (11.5-14.8); LYMPHOCYTES # (AUTO) 0.8 /CMM (0.8-4.8); LYMPHOCYTES % (AUTO) 23.6 % (20.0-44.0); MEAN CORPUSCULAR HGB CONC 32 g/dl (31.0-36.0); MEAN CORPUSCULAR VOLUME 81 fL (82-100); MONOCYTES # (AUTO) 0.3 /CMM (0.1-1.30); MONOCYTES % (AUTO) 9.4 % (2.0-12.0); NEUTROPHILS # (AUTO) 2.2 /CMM (1.8-8.9); PLATELET COUNT (AUTO) 109 /CMM (150-450); RED BLOOD CELL COUNT(AUTO) 4.58 MIL/uL (4.0-5.2); WHITE BLOOD COUNT (AUTO) 3.5 K/uL (4.3-11.0)
[2020-01-09 06:43] LABS: ALANINE AMINOTRANSFERASE 20 U/L (12-78); ALBUMIN 3.2 g/dL (3.4-5.0); ALKALINE PHOSPHATASE 48 U/L (46-116); ASPARTATE AMINOTRANSFERASE 24 U/L (15-37); BILIRUBIN,TOTAL 0.3 mg/dL (0.2-1.0); CALCIUM, SERUM 8.6 mg/dL (8.5-10.1); CARBON DIOXIDE 29 mmol/L (21-32); CHLORIDE 101 mmol/L (98-107); CREATININE 1.4 mg/dL (0.6-1.3); GLUCOSE 155 mg/dL (74-106); MAGNESIUM 1.9 mg/dL (1.8-2.4); PHOSPHORUS 2.8 mg/dL (2.5-4.9); POTASSIUM 3.5 mmol/L (3.5-5.1); SODIUM SERUM 140 mmol/L (136-145); TOTAL PROTEIN, SERUM 6.4 g/dL (6.4-8.2); UREA NITROGEN, BLOOD 18 mg/dL (7-18)
--- NOTE | 2020-01-09 07:29 | NUR ---
MS RN OPENING NOTE PATIENT IN BED RESTING COMFORTABLY. PATIENT IN NO ACUTE DISTRESS. NO SOB NOTED. PATIENT BREATHING IS EVEN AND UNLABORED. PATIENT IN NO PAIN AT THIS TIME. SAFETY PRECAUTIONS IN PLACE. PATIENT BED IS LOCKED AND IN LOWEST POSITION. CALL LIGHT WITHIN REACH. WILL CONTINUE TO MONITOR.
[2020-01-09] MEDS: BLOOD SUGAR DIAGNOSTIC 1 EACH STRIP IN SCH ×3 (07:40→16:47)
[2020-01-09] MEDS: INSULIN REGULAR, HUMAN 100 UNIT/ML 3 ML VIAL SQ PRN ×2 (07:42→11:32)
[2020-01-09 08:00] VITALS: BP 142/66
[2020-01-09] MEDS: PANTOPRAZOLE 40 MG TABLET.DR PO SCH (09:08)
[2020-01-09] MEDS: FLUTICASONE/VILANTEROL 1 EACH BLST.W.DEV IH SCH (09:08)
[2020-01-09] MEDS: GABAPENTIN 100 MG CAPSULE PO SCH ×3 (09:08→16:46)
[2020-01-09] MEDS: ASPIRIN 81 MG TAB.CHEW PO SCH (09:09)
[2020-01-09] MEDS: TICAGRELOR 90 MG TABLET PO SCH ×2 (09:09→16:47)
[2020-01-09] MEDS: SUCRALFATE 1 G TABLET PO SCH (09:09)
[2020-01-09] MEDS: METOPROLOL TARTRATE 50 MG TABLET PO SCH (09:10)
[2020-01-09] MEDS: DISOPYRAMIDE PHOSPHATE 150 MG PO PRN (09:12)
[2020-01-09 12:00] VITALS: BP 129/70
--- NOTE | 2020-01-09 15:08 | NUR ---
MS RN NOTE LAB CALLED FOR TROPONIN LEVEL 0.735. CURRENT LEVEL DOWNTRENDING, LEO HAHN MADE AWARE. PATIENT IN NO ACUTE DISTRESS. NO SOB NOTED. PATIENT STATES NO PAIN AT THIS TIME. WILL CONTINUE TO MONITOR.
[2020-01-09 16:00] VITALS: BP 137/77
[2020-01-09 16:13] VITALS: BP 137/77
--- NOTE | 2020-01-09 16:43 | NUR ---
MS RN NOTE PATIENT BLOOD SUGAR IS 95. NO INSULIN COVERAGE GIVEN PER PROTOCOL.
--- NOTE | 2020-01-09 16:54 | NUR ---
MS RN NOTE PATIENT REFUSING SKIN ASSESSMENT. PATIENT STATES " YOU GUYS HAVE PHOTOS ITS OKAY I DONT WANT YOU TO CHECK". EDUCATED TO PATIENT RISKS VS BENEFITS. PATIENT CONTINUED TO REFUSE.
[2020-01-09] MEDS ORDERED: BUMETANIDE INJ 0.25 MG/ML VIAL IV ONE (17:00)
[2020-01-09] MEDS ORDERED: TICA90TA PO (17:25)
[2020-01-09] MEDS ORDERED: POTASSIUM CHLORIDE 20 MEQ TAB.PRT.SR PO ONE (17:36)
--- NOTE | 2020-01-09 18:15 | NUR ---
MS SHERIFF SERGEANT NOTE PATIENT MEDICALLY CLEARED FOR DISCHARGE. PATIENT IN NO ACUTE DISTRESS. NO SOB NOTED. PATIENT BREATHING IS EVEN AND UNLABORED. VITAL SIGNS WNL. DC INSTRUCTIONS PROVIDED TO PATIENT AND DAUGHTER. PATIENT AND DAUGHTER VERBALIZED UNDERSTANDING. PATIENT IV REMOVED. ID BAND REMOVED. PATIENT SIGNED BELONGINGS LIST AND HAS BELONGINGS WITH HER. PATIENT REFUSED SKIN ASSESSMENT. EDUCATED RISKS VS BENEFITS. PATIENT CONTINUED TO REFUSE SKIN ASSESSMENT. PATIENT KEPT CLEAN, DRY AND COMFORTABLE THROUGHOUT SHIFT. PATIENT NEEDS AND CONCERNS ADDRESSED. PATIENT STATES NO PAIN AT THIS TIME. PATIENT AMBULATORY WITH CANE. PATIENT WAS TAKEN BY WHEELCHAIR BACK TO CAR WITH DAUGHTER GOING BACK HOME. MD AWARE OF DISCHARGE.
== END 2020-01-09 18:10 | disposition home or self-care (01) | DRG 246 ==
LOC: ER 04:26 → TELE1 05:42 → MEDSG1 01-06 11:41 → ICU 01-07 15:20 → TELE1 01-08 08:59 → MEDSG1 01-08 10:32
PROVIDERS: ADMIT Nurse Practitioner Acute Care; ATTEND Nurse Practitioner Acute Care
PROC: 4A023N7 Measurement of Cardiac Sampling and Pressure, Left Heart, Percutaneous Approach (ICD-10-PCS; principal; 2020-01-07)
PROC: 027034Z Dilation of Coronary Artery, One Artery with Drug-eluting Intraluminal Device, Percutaneous Approach (ICD-10-PCS; 2020-01-07)
PROC: B211YZZ Fluoroscopy of Multiple Coronary Arteries using Other Contrast (ICD-10-PCS; 2020-01-07)
PROC: B41FYZZ Fluoroscopy of Right Lower Extremity Arteries using Other Contrast (ICD-10-PCS; 2020-01-07)
DX: I13.0 Hypertensive heart and chronic kidney disease with heart failure and stage 1 through stage 4 chronic kidney disease, or unspecified chronic kidney disease (principal); I21.4 Non-ST elevation (NSTEMI) myocardial infarction; N17.0 Acute kidney failure with tubular necrosis; I50.33 Acute on chronic diastolic (congestive) heart failure; E87.1 Hypo-osmolality and hyponatremia; D50.9 Iron deficiency anemia, unspecified; E87.6 Hypokalemia; I25.10 Atherosclerotic heart disease of native coronary artery without angina pectoris; I25.2 Old myocardial infarction; J44.9 Chronic obstructive pulmonary disease, unspecified; E11.22 Type 2 diabetes mellitus with diabetic chronic kidney disease; E78.5 Hyperlipidemia, unspecified; E86.0 Dehydration; G47.33 Obstructive sleep apnea (adult) (pediatric); I48.0 Paroxysmal atrial fibrillation; K22.0 Achalasia of cardia; E66.01 Morbid (severe) obesity due to excess calories; Z68.37 Body mass index [BMI] 37.0-37.9, adult; I08.0 Rheumatic disorders of both mitral and aortic valves; K21.9 Gastro-esophageal reflux disease without esophagitis; H40.9 Unspecified glaucoma; N20.0 Calculus of kidney; Z79.4 Long term (current) use of insulin; Z79.82 Long term (current) use of aspirin; D32.9 Benign neoplasm of meninges, unspecified; K22.8 Other specified diseases of esophagus; N18.9 Chronic kidney disease, unspecified; Z95.5 Presence of coronary angioplasty implant and graft; Z87.442 Personal history of urinary calculi
CPT/HCPCS: 36415; 70450-TC; 71045-TC; 74230-TC; 76770-TC; 80048-TC; 80053-TC; 80076-TC; 80202-TC; 81000-TC; 82550-TC; 82962-TC; 83605-TC; 83735-TC; 83880; 83970; 84100-TC; 84155; 84165; 84484-TC; 85025-TC; 85730-TC; 87040-TC; 87081-TC; 87086-TC; 92980; 92982; 93307-TC; 93452; C1725; C1887; C1894; G0378; J0461; J1644; J1650; J1815; J2250; J2405; J2543; J3010; J3370; J3490; J7030; J7040; J7050; J7060; Q9967

== ENCOUNTER 2022-04-17 15:23 | Inpatient (IN) | payer MEDICARE, OTHER ==
[~2022-04-17] VITALS: Ht 152.4 cm; Wt 79.4 kg
[~2022-04-17 15:23] MED LIST changes: +ESOM40CA PO; +PANT40TA49 PO; +POTA-10 PO; +TICA90TA PO
--- NOTE | 2022-04-17 15:23 | NUR ---
BIBRA 89 FROM HOME C/O CHEST PAIN PRESSURE LIKE RADIATES TO L SHOULDER SINCE 11AM AND L LEG PAIN X 3 DAYS. BG 222. ASPIRIN 325MG AND 2 DOSE 0.4NTG. DENIES NAUSEA, VOMITTING, HEADACHE, SHORTNESS OF BREATH. PT ATTCHED TO MONITOR, VITALS ARE WITHIN NORMAL LIMITS. DR FULLER AT BEDSIDE FOR EVAL.
[2022-04-17] MEDS ORDERED: NITROGLYCERIN PACKET 1 GM PACKET TD ONE (15:30)
[2022-04-17] MEDS ORDERED: NITROGLYCERIN PACKET 1 GM PACKET ONE (15:43)
[2022-04-17] MEDS ORDERED: KETOROLAC TROMETHAMINE INJ 30 MG/ML VIAL ONE (15:51)
--- NOTE | 2022-04-17 15:58 | NUR ---
ULTRASOUND AT BEDSIDE
[2022-04-17] MEDS ORDERED: KETOROLAC TROMETHAMINE INJ 30 MG/ML VIAL IV ONE (16:00)
[2022-04-17] MEDS ORDERED: CLON0.1T PO (16:27)
[2022-04-17] MEDS ORDERED: ISOS30TA86 PO (16:28)
[2022-04-17] MEDS ORDERED: TICA90TA PO (16:28)
[2022-04-17] MEDS ORDERED: AMLO-212 PO (16:28)
[2022-04-17] MEDS ORDERED: MAGN400T26 PO (16:28)
[2022-04-17] MEDS ORDERED: ONDA4TAB5 PO (16:28)
--- NOTE | 2022-04-17 16:48 | NUR ---
PANEL ON-CALL PAGED
[2022-04-17] MEDS ORDERED: ACETAMINOPHEN ES 500 MG TABLET ONE (16:58)
[2022-04-17] MEDS ORDERED: ACETAMINOPHEN ES 500 MG TABLET PO ONE (17:00)
[2022-04-17] MEDS: LIDOCAINE 5% (PATCH) 1 EA PATCH TP SCH (18:10)
[2022-04-17 18:12] LABS: BASOPHILS % (AUTO) 0.2 % (0.0-2.0); HEMATOCRIT 37 % (33-45); LYMPHOCYTES # (AUTO) 1.2 K/uL (0.8-4.8); LYMPHOCYTES % (AUTO) 20.8 % (20.0-44.0); MEAN CORPUSCULAR HGB CONC 33 g/dl (31.0-36.0); MEAN CORPUSCULAR VOLUME 85 fL (82-100); MONOCYTES # (AUTO) 0.3 K/uL (0.1-1.30); MONOCYTES % (AUTO) 5.6 % (2.0-12.0); NEUTROPHILS # (AUTO) 4.1 K/uL (1.8-8.9); NEUTROPHILS % (AUTO) 71.4 % (43.0-81.0); PLATELET COUNT (AUTO) 208 K/uL (150-450); RED BLOOD CELL COUNT(AUTO) 4.34 MIL/uL (4.0-5.2); WHITE BLOOD COUNT (AUTO) 5.7 K/uL (4.3-11.0)
[2022-04-17 18:27] LABS: CALCIUM, SERUM 9.3 mg/dL (8.5-10.1); CARBON DIOXIDE 24 mmol/L (21-32); CHLORIDE 99 mmol/L (98-107); CREATININE 1.7 mg/dL (0.6-1.3); GLUCOSE 153 mg/dL (74-106); POTASSIUM 4.3 mmol/L (3.5-5.1); SODIUM SERUM 133 mmol/L (136-145); UREA NITROGEN, BLOOD 33 mg/dL (7-18)
[2022-04-17] MEDS ORDERED: MAGNESIUM HYDROXIDE 30 ML UDC PO PRN (18:30)
[2022-04-17] MEDS ORDERED: ONDANSETRON HCL/PF 4 MG/2 ML VIAL IVP PRN (18:30)
[2022-04-17] MEDS ORDERED: MAG HYDROX/AL HYDROX/SIMETH 30 ML UDC PO PRN (18:30)
[2022-04-17] MEDS ORDERED: NITROGLYCERIN 0.4 MG/TAB BOTTLE SL PRN (18:30)
[2022-04-17] MEDS ORDERED: Z GUARD REMEDY 4 OZ OINT TP PRN (18:30)
[2022-04-17] MEDS ORDERED: ZOLPIDEM TARTRATE 5 MG TABLET PO PRN (18:30)
[2022-04-17] MEDS ORDERED: CLONIDINE HCL 0.1 MG TABLET PO PRN (18:30)
[2022-04-17] MEDS ORDERED: DEXTROSE 50%-WATER 50 ML DISP.SYRIN IV PRN (18:30)
[2022-04-17] MEDS ORDERED: ONDANSETRON 4 MG TAB.RAPDIS PO PRN (18:30)
[2022-04-17 18:39] LABS: ALANINE AMINOTRANSFERASE 15 U/L (12-78); ALBUMIN 3.7 g/dL (3.4-5.0); ALKALINE PHOSPHATASE 54 U/L (46-116); ASPARTATE AMINOTRANSFERASE 17 U/L (15-37); BILIRUBIN,DIRECT 0.1 mg/dL (0.0-0.2); BILIRUBIN,TOTAL 0.2 mg/dL (0.2-1.0); TOTAL PROTEIN, SERUM 6.5 g/dL (6.4-8.2)
--- NOTE | 2022-04-17 19:03 | NUR ---
URINE COLLECTED AND SENT
[2022-04-17 19:30] LABS: BILIRUBIN,URINE NEGATIVE (NEGATIVE); COLOR,URINE YELLOW (YELLOW); LEUKOCYTE ESTERASE ,URINE NEGATIVE (NEGATIVE); NITRITE, URINE NEGATIVE (NEGATIVE); PROTEIN,URINE NEGATIVE (NEGATIVE); UGLUCOSE NEGATIVE (NEGATIVE); UROBILINOGEN,URINE 0.2 EU/dL (0.2)
--- NOTE | 2022-04-17 19:35 | NUR ---
RECEIVED REPORT FROM ELIZABETH CHAVEZ FOR [facility]
--- NOTE | 2022-04-17 19:36 | NUR ---
PT RESTING COMFORTABLY IN BED, V/S WITHIN RANGE, FAMILY AT BEDSIDE. WILL CONTINUE TO MONITOR.
--- NOTE | 2022-04-17 19:56 | NUR ---
ROOM 309-1
[2022-04-17] MEDS ORDERED: HYDROMORPHONE INJ 2 MG/ML DISP.SYRIN IV ONE (20:00)
[2022-04-17] MEDS ORDERED: HYDROMORPHONE 1 MG/1 ML DISP.SYRIN ONE (20:03)
--- NOTE | 2022-04-17 20:23 | NUR ---
REPORT GIVEN TO BRYAN CHAVEZ FOR [facility]
--- NOTE | 2022-04-17 20:23 | NUR ---
RN NOTES RECEIVED REPORT FROM SCOTT ESTRELLA; AWAITING FOR PATIENT ARRIVAL TO UNIT
[2022-04-17 20:30] VITALS: BP 141/76
--- NOTE | 2022-04-17 20:30 | NUR ---
HOSPITAL ATTENDANT ADMITTING NOTES PATIENT ARRIVED ON UNIT VIA STRETCHER, ACCOMPANIED BY 2 ER STAFF; PATIENT A/OX4, BREATHING EVEN AND UNLABORED; NO SOB NOTED; TOLERATING ROOM AIR WELL; NO DISTRESS NOTED AT THIS TIME; PATIENT ABLE TO MAKE NEEDS KNOWN, PATIENT DENIES PAIN AT THIS TIME; VITALS STABLE; TELE MONITOR ATTACHED; READS NORMAL SINUS RHYTHM; L HAND #20G S/L NOTED, FLUSHING WELL; NO S/S OF REDNESS OR INFILTRATION NOTED; BELONGINGS CHECKED AT BEDSIDE WITH SHEET ROCKER PRESENT; PER PATIENT, SHE HAD GIVEN A BAG OF HER HOME MEDS TO A NURSE IN ER; WILL FOLLOW UP REGARDING THIS; PATIENT ORIENTED TO STAFF AND TO UNIT; SAFETY PRECAUTIONS IMPLEMENTED; BED LOCKED IN LOW POSITION; SIDE RAILSX2, CALL LIGHT WITHIN REACH; WILL CONT TO MONITOR
[2022-04-17] MEDS: BLOOD SUGAR DIAGNOSTIC 1 EACH STRIP VI SCH (21:45)
[2022-04-17] MEDS: INSULIN GLARGINE, 100 UNIT/ML CARTRIDGE SQ SCH (21:45)
--- NOTE | 2022-04-17 21:55 | NUR ---
MACHINE MOLDER NOTES SPOKE WITH SCOTT ESTRELLA, PATIENT'S HOME MEDS ARE IN UNIT WITH HER; WILL BRING MEDS UP TO 3W.
--- NOTE | 2022-04-17 22:31 | NUR ---
MACHINE FITTER NOTES PATIENT VTE SCORE 3, PER VIVIAN STEELE, START 40MG OF LOVENOX SC DAILY FOR CHEMICAL PROPHYLAXIS;
--- NOTE | 2022-04-18 00:05 | NUR ---
DOG GROOMER NOTES SPOKE WITH PHARMACY PRIOR TO PATIENT ARRIVAL ON UNIT, PER PHARMACY, SO DOES NOT CARRY DISOPYRAMIDE IN HOSPITAL, NEED TO HAVE FAMILY MEMBER BRING MEDICATION FROM HOME CHARGE NURSE AWARE, PATIENTS MEDS WERE GIVEN TO ER ON DAY SHIFT & ER NURSE ACCEPTED MEDS AND DID NOT GIVE TO PHARMACY; WILL SEND TO PHARMACY IN AM SHIFT;
[2022-04-18] MEDS ORDERED: ALBUTEROL FS 2.5 MG/3 ML VIAL.NEB NEB PRN (01:30)
[2022-04-18] MEDS: HYDROCODONE/APAP 5/325MG TABLET PO PRN ×2 (04:16→13:21)
--- NOTE | 2022-04-18 04:21 | NUR ---
SLIP BRIDGE OPERATOR NOTES PATIENT COMPLAINT OF BACK AND LEG PAIN, PATIENT REQUESTING FOR DILAUDID THAT WAS GIVEN IN ER; MED WAS D/C'D; MD ORDERED NORCO 5/325 MG PO Q4 HRS PRN FOR PAIN; PATIENT BLOOD PRESSURE 179/85; MEDICATION ADMINISTERED; WILL CONT TO MONITOR
[2022-04-18 06:25] LABS: BASOPHILS % (AUTO) 0.3 % (0.0-2.0); EOSINOPHILS % (AUTO) 3.7 % (0.0-6.0); HEMATOCRIT 37 % (33-45); HEMOGLOBIN 12.1 g/dL (11.5-14.8); LYMPHOCYTES # (AUTO) 1.3 K/uL (0.8-4.8); LYMPHOCYTES % (AUTO) 21.1 % (20.0-44.0); MEAN CORPUSCULAR HGB CONC 33 g/dl (31.0-36.0); MEAN CORPUSCULAR VOLUME 85 fL (82-100); MONOCYTES # (AUTO) 0.5 K/uL (0.1-1.30); MONOCYTES % (AUTO) 7.6 % (2.0-12.0); NEUTROPHILS # (AUTO) 4.2 K/uL (1.8-8.9); NEUTROPHILS % (AUTO) 67.3 % (43.0-81.0); PLATELET COUNT (AUTO) 207 K/uL (150-450); WHITE BLOOD COUNT (AUTO) 6.3 K/uL (4.3-11.0)
[2022-04-18] MEDS: BLOOD SUGAR DIAGNOSTIC 1 EACH STRIP VI SCH ×4 (06:36→21:26)
--- NOTE | 2022-04-18 06:44 | NUR ---
CERAMIC DESIGNER CLOSING NOTES PATIENT RESTING IN BED COMFORTABLY; A/OX4, BREATHING EVEN AND UNLABORED; NO SOB NOTED; TOLERATING ROOM AIR WELL; NO DISTRESS NOTED AT THIS TIME; PATIENT ABLE TO MAKE NEEDS KNOWN, PATIENT DENIES PAIN AT THIS TIME; TELE MONITOR READS NORMAL SINUS RHYTHM; L HAND #20G S/L NOTED, FLUSHING WELL; NO S/S OF REDNESS OR INFILTRATION NOTED; HOME MEDICATION IN PHARMACY BOC, WILL INFORM DAY SHIFT; CHARGE NURSE AWARE; ALL NEEDS RENDERED; SAFETY PRECAUTIONS IMPLEMENTED; BED LOCKED IN LOW POSITION; SIDE RAILSX2, CALL LIGHT WITHIN REACH; WILL ENDORSE CONTINUITY OF CARE TO ONCOMING SHIFT
[2022-04-18 07:26] LABS: CALCIUM, SERUM 9.4 mg/dL (8.5-10.1); CARBON DIOXIDE 25 mmol/L (21-32); CHLORIDE 103 mmol/L (98-107); CREATININE 1.5 mg/dL (0.6-1.3); GLUCOSE 111 mg/dL (74-106); MAGNESIUM 2.2 mg/dL (1.8-2.4); PHOSPHORUS 4.7 mg/dL (2.5-4.9); POTASSIUM 4.1 mmol/L (3.5-5.1); SODIUM SERUM 138 mmol/L (136-145); UREA NITROGEN, BLOOD 30 mg/dL (7-18)
--- NOTE | 2022-04-18 07:30 | NUR ---
THERAPEUTIC RECREATION SPECIALIST OPENING NOTES RECEIVED PATIENT RESTING IN BED COMFORTABLY; A/OX4, BREATHING EVEN AND UNLABORED; NO SOB NOTED; TOLERATING ROOM AIR WELL; NO DISTRESS NOTED AT THIS TIME; PATIENT ABLE TO MAKE NEEDS KNOWN. L HAND #20G S/L NOTED, FLUSHING WELL; NO S/S OF REDNESS OR INFILTRATION NOTED. SAFETY PRECAUTIONS IMPLEMENTED; BED LOCKED IN LOW POSITION; SIDE RAILSX2, CALL LIGHT WITHIN REACH. WILL CONTINUE TO MONITOR FOR [facility].
[2022-04-18 08:00] VITALS: BP 147/73
[2022-04-18] MEDS ORDERED: TICAGRELOR 90 MG TABLET PO SCH (09:00)
[2022-04-18] MEDS ORDERED: BUDESONIDE RESPULE INH 0.5 MG/2 ML AMPUL.NEB NEB PRN (09:00)
[2022-04-18] MEDS: MAGNESIUM OXIDE 400 MG TABLET PO SCH (09:50)
[2022-04-18] MEDS: AMLODIPINE BESYLATE 5 MG TABLET PO SCH ×2 (09:51→17:38)
[2022-04-18] MEDS: ISOSORBIDE MONONITRATE (30MG) 30 MG TAB.SR.24H PO SCH (09:51)
[2022-04-18] MEDS: ENOXAPARIN SODIUM 40 MG/0.4 ML DISP.SYRIN SQ SCH (09:56)
[2022-04-18] MEDS: METOPROLOL TARTRATE 50 MG TABLET PO SCH ×2 (10:01→21:30)
[2022-04-18] MEDS ORDERED: DISOPYRAMIDE 150 MG PO PRN (10:30)
--- NOTE | 2022-04-18 10:42 | NUR ---
RN NOTE PATIENT AND FAMILY (DAUGHTER) ARE WELL-INFORMED ABOUT THE DILAUDID CAME FROM THE SAME MORPHINE FAMILY. STILL, THEY INSISTED TO GET DILAUDID SINCE THE PATIENT GOT IT FROM THE ER AND DIDN'T HAVE ANY ADVERSE REACTION FROM IT. DR. URBANO MADE AWARE, AND HE AGREED TO REORDER IT.
[2022-04-18] MEDS: HYDROMORPHONE 1 MG/1 ML DISP.SYRIN IV PRN ×2 (11:05→20:06)
[2022-04-18 11:49] VITALS: BP 121/73
[2022-04-18 12:00] LABS: THYROID STIMULATING HORMONE 3.001 uIU/mL (0.358-3.74)
[2022-04-18] MEDS: INSULIN REGULAR, HUMAN 100 UNIT/ML 3 ML VIAL SQ PRN ×2 (12:49→17:54)
[2022-04-18 16:00] VITALS: BP 145/71
[2022-04-18] MEDS: LIDOCAINE 5% (PATCH) 1 EA PATCH TP SCH (17:38)
[2022-04-18] MEDS: BRILINTA 90 MG PO SCH (17:38)
--- NOTE | 2022-04-18 18:45 | NUR ---
DISK SHARPENER CLOSING NOTES PATIENT RESTING IN BED COMFORTABLY; A/OX4, BREATHING EVEN AND UNLABORED; NO SOB NOTED; TOLERATING ROOM AIR WELL; NO DISTRESS NOTED AT THIS TIME; PATIENT ABLE TO MAKE NEEDS KNOWN. PATIENT COMPLAINS LEFT LEG PAIN AND PAIN MANAGEMENT WAS IMPLEMENTED. TELE MONITOR READS NORMAL SINUS RHYTHM; L HAND #20G S/L NOTED, FLUSHING WELL; NO S/S OF REDNESS OR INFILTRATION NOTED. SAFETY PRECAUTIONS IMPLEMENTED; BED LOCKED IN LOW POSITION; SIDE RAILSX2, CALL LIGHT WITHIN REACH; WILL ENDORSE CONTINUITY OF CARE TO ONCOMING SHIFT
--- NOTE | 2022-04-18 19:30 | NUR ---
BLACK OFF WORKER OPENING NOTE RECEIVED PT AWAKE IN BED WITH DAUGHTER AT BEDSIDE. A/O X4 AND ABLE TO MAKE NEEDS KNOWN. PT STABLE ON ROOM AIR. NO SOB OR S/S OF RESPIRATORY DISTRESS. BREATHING EVEN AND UNLABORED. ON EXTERNAL CARDIAC MONITORING READING SR 94 BPM. IV ACCESS L HAND [address] GAUGE SL. SAFETY PRECAUTIONS IN PLACE. BED IN LOWEST LOCKED POSITION, HOB ELEVATED, SIDE RAILS UP X2, AND CALL LIGHT AND TABLE WITHIN REACH. ALL NEEDS MET AT THIS TIME.
--- NOTE | 2022-04-18 20:07 | NUR ---
RN NOTE PT COMPLAINED OF PAIN 9/10 OF LEFT LEG. ADMINISTERED DILAUDID 0.5 MG ORDERED FOR SEVERE PAIN. PARTIAL DOSE MEDICATION WASTE WITNESSED BY KEMAR CHAVEZ. MADE COMFORTABLE IN BED. ALL NEEDS MET AT THIS TIME.
[2022-04-18] MEDS: INSULIN GLARGINE, 100 UNIT/ML CARTRIDGE SQ SCH (21:26)
[2022-04-18 21:59] VITALS: BP 144/78
--- NOTE | 2022-04-18 23:52 | NUR ---
RN NOTE PT COMPLAINED OF NAUSEA. ADMINISTERED ONDANSETRON 8 MG FOR NAUSEA ORDERED. ALL NEEDS MET AT THIS TIME.
[2022-04-19] VITALS: BP 190/88
--- NOTE | 2022-04-19 01:19 | NUR ---
RN NOTE PT BP 190/88. ADMINISTERED CLONIDINE 0.1 MG FOR SBP >160 ORDERED. ALL NEEDS MET AT THIS TIME.
[2022-04-19 04:00] VITALS: BP 162/66
[2022-04-19] MEDS: HYDROMORPHONE 1 MG/1 ML DISP.SYRIN IV PRN ×2 (04:14→08:31)
--- NOTE | 2022-04-19 05:08 | NUR ---
RN NOTE IV ACCESS DISLODGED. REMOVED IV ACCESS AT R WRIST, APPLIED PRESSURE, AND SECURED WITH TAPE. NEW IV ACCESS AT L HAND 24 GAUGE, INTACT AND PATENT.
[2022-04-19] MEDS: ONDANSETRON HCL/PF 4 MG/2 ML VIAL IV PRN ×3 (05:17→15:57)
--- NOTE | 2022-04-19 05:17 | NUR ---
RN NOTE PT COMPLAINED OF NAUSEA AND STATED THAT THE ORAL MEDICATION GIVEN "ONLY HELPED THE FIRST HOUR". ICT PROGRAMMER EFRAIN INFORMED WITH ORDER TO CHANGE ZOFRAN FROM PO TO IV AND TO GIVE FIRST DOSE NOW. NEW ORDERS NOTED AND CARRIED OUT. ADMINISTERED ZOFRAN 4 MG IV FOR NAUSEA ORDERED. ALL NEEDS MET AT THIS TIME.
[2022-04-19 06:38] LABS: BASOPHILS % (AUTO) 0.3 % (0.0-2.0); EOSINOPHILS % (AUTO) 3.6 % (0.0-6.0); HEMATOCRIT 37 % (33-45); HEMOGLOBIN 11.9 g/dL (11.5-14.8); LYMPHOCYTES # (AUTO) 1.2 K/uL (0.8-4.8); LYMPHOCYTES % (AUTO) 19.4 % (20.0-44.0); MEAN CORPUSCULAR HGB CONC 32 g/dl (31.0-36.0); MEAN CORPUSCULAR VOLUME 85 fL (82-100); MONOCYTES # (AUTO) 0.4 K/uL (0.1-1.30); MONOCYTES % (AUTO) 5.9 % (2.0-12.0); NEUTROPHILS # (AUTO) 4.2 K/uL (1.8-8.9); NEUTROPHILS % (AUTO) 70.8 % (43.0-81.0); PLATELET COUNT (AUTO) 233 K/uL (150-450); RED BLOOD CELL COUNT(AUTO) 4.35 MIL/uL (4.0-5.2)
[2022-04-19] MEDS: BLOOD SUGAR DIAGNOSTIC 1 EACH STRIP VI SCH ×4 (06:44→22:37)
[2022-04-19] MEDS: INSULIN REGULAR, HUMAN 100 UNIT/ML 3 ML VIAL SQ PRN (06:45)
--- NOTE | 2022-04-19 06:45 | NUR ---
RN NOTE PT REFUSED INSULIN COVERAGE FOR BS 132. PT STATED THERE WAS "NO NEED". EXPLAINED THE RISKS AND BENEFITS. PT STILL REFUSED. CHARGE NURSE VIN AWARE.
--- NOTE | 2022-04-19 06:46 | NUR ---
MOVABLE BULKHEAD INSTALLER CLOSING NOTE PT AWAKE IN BED WITH DAUGHTER AT BEDSIDE. A/O X4 AND ABLE TO MAKE NEEDS KNOWN. PT STABLE ON ROOM AIR. NO SOB OR S/S OF RESPIRATORY DISTRESS. BREATHING EVEN AND UNLABORED. ON EXTERNAL CARDIAC MONITORING READING SB 55 BPM. IV ACCESS R HAND 24 GAUGE SL. ALL DUE MEDS GIVEN ORDERED. SAFETY PRECAUTIONS IN PLACE AT ALL TIMES. BED IN LOWEST LOCKED POSITION, HOB ELEVATED, SIDE RAILS UP X2, AND CALL LIGHT AND TABLE WITHIN REACH. ALL NEEDS MET AT THIS TIME AND WILL ENDORSE TO ONCOMING NURSE FOR [facility].
[2022-04-19 07:06] LABS: CALCIUM, SERUM 9.4 mg/dL (8.5-10.1); CREATININE 1.1 mg/dL (0.6-1.3); POTASSIUM 4.3 mmol/L (3.5-5.1)
--- NOTE | 2022-04-19 07:30 | NUR ---
RN NOTES RESTING IN BED, AWAKE AND VERBALLY RESPONSIVE. NOT IN ACUTE DISTRESS. ON TELE, SINUS ANTOINE. FWW AT BEDSIDE. PREVIOUSLY COMPLAINT OF PAIN ON LEFT LEG BUT TOLERABLE AT THIS TIME PER PATIENT. SAFETY MEASURES IN PLACE.
[2022-04-19 08:00] VITALS: BP 159/74
--- NOTE | 2022-04-19 08:15 | NUR ---
RN NOTES PATIENT SEEN BY DR. NASCIMENTO AT BEDSIDE.
[2022-04-19] MEDS: BRILINTA 90 MG PO SCH ×2 (08:22→17:00)
[2022-04-19] MEDS: METOPROLOL TARTRATE 50 MG TABLET PO SCH ×2 (08:22→20:43)
[2022-04-19] MEDS: AMLODIPINE BESYLATE 5 MG TABLET PO SCH ×2 (08:22→17:00)
[2022-04-19] MEDS: MAGNESIUM OXIDE 400 MG TABLET PO SCH (08:22)
[2022-04-19] MEDS: ISOSORBIDE MONONITRATE (30MG) 30 MG TAB.SR.24H PO SCH (08:23)
[2022-04-19] MEDS: ENOXAPARIN SODIUM 40 MG/0.4 ML DISP.SYRIN SQ SCH (08:24)
[2022-04-19] MEDS: hydrALAZINE HCL 50 MG TABLET PO SCH ×3 (09:39→17:00)
[2022-04-19 16:00] VITALS: BP 129/70
--- NOTE | 2022-04-19 16:26 | NUR ---
RN NOTES RECEIVED CALL FROM DR. BLANCO RADIOLOGY W/ ORDER FOR CT ANGIO W. RUN OFF STUDY ABD/PELVIS/LEFT LEG.
--- NOTE | 2022-04-19 17:15 | NUR ---
RN NOTES CONSENT FORM SIGNED BY PATIENT AND PLACED IN THE CHART. UNABLE TO INSERT IV ON AC PATIENT IS HARD STICK. INFORMED SUSANNA FROM RADIOLOGY.
--- NOTE | 2022-04-19 17:16 | NUR ---
RN NOTES PATIENT KEPT NPO AT THIS TIME FOR PLANNED PROCEDURE.
[2022-04-19] MEDS: LIDOCAINE 5% (PATCH) 1 EA PATCH TP SCH (18:59)
--- NOTE | 2022-04-19 19:20 | NUR ---
RN NOTE RECEIVED PT RESTING IN BED, EASILY AROUSABLE, A/OX4, ABLE TO MAKE NEEDS KNOWN. NO C/O PAIN AT THIS TIME. RESPIRATIONS EVEN/UNLABORED. IV SITE: RH #24G INTACT/FLUSHES WELL. PT NPO FOR CT ANGIO TOMORROW. PT AWARE AND VERBALIZED UNDERSTANDING. TELE MONITOR READING SR, HR 61. PT IN NO ACUTE DISTRESS. SAFETY MEASURES IN PLACE. WILL CONT TO MONITOR.
--- NOTE | 2022-04-19 19:40 | NUR ---
RN NOTES ENDORSED TO STOCK TRADER RN FOR [facility].
[2022-04-19 20:00] VITALS: BP 136/58
[2022-04-19] MEDS: INSULIN GLARGINE, 100 UNIT/ML CARTRIDGE SQ SCH (22:00)
[2022-04-20] VITALS: BP 155/90
--- NOTE | 2022-04-20 | NUR ---
RN NOTE INSERTED IV ACCESS TO R-FOREARM #20G, FOR CT ANGIO TOMORROW
[2022-04-20] MEDS: ONDANSETRON HCL/PF 4 MG/2 ML VIAL IV PRN ×3 (00:13→18:44)
[2022-04-20] MEDS: HYDROMORPHONE 1 MG/1 ML DISP.SYRIN IV PRN ×2 (00:13→10:01)
[2022-04-20 04:00] VITALS: BP 153/80
[2022-04-20] MEDS: BLOOD SUGAR DIAGNOSTIC 1 EACH STRIP VI SCH ×4 (06:15→21:28)
--- NOTE | 2022-04-20 06:50 | NUR ---
RN NOTE PT RESTING IN BED, EASILY AROUSABLE TO STIMULI. SHE DENIES ANY PAIN AT THIS TIME. NO SOB. NO S/S OF HYPO/HYPERGLYCEMIA NOTED. NO INSULINS GIVEN D/T PT NPO FOR PLANNED CT ANGIO TODAY. PT SLEPT WELL DURING THE NIGHT. TELE MONITOR READING SR, HR 60. PT IN NO ACUTE DISTRESS. SAFETY MEASURES MAINTAINED.
--- NOTE | 2022-04-20 07:01 | NUR ---
COUTURIERE OPENING NOTES PATIENT LAYING IN BED, A/O X 4, ABLE TO MAKE NEEDS KNOWN. PATIENT CURRENTLY NPO PENDING CT ANGIOGRAM TODAYH. TELE MONITOR READING SR 68. TOLERATING WELL ON ROOM AIR WITH NO COMPLAINTS OF SOB OR RESPIRATORY DISTRESS. NO COMPLAINTS OF PAIN OR DISCOMFORT AT THIS TIME. R HAND # 24 G SL CLEAN, INTACT, AND FLUSHING WELL. R FA # 20 G CLEAN, INTACT, AND FLUSHING WELL. SAFETY MEASURES IN PLACE: BED IN LOWEST LOCKED POSITION, SIDE RAILS UP X 2, CALL LIGHT WITHIN REACH. WILL CONTINUE TO MONITOR.
[2022-04-20] MEDS: hydrALAZINE HCL 50 MG TABLET PO SCH ×3 (08:40→17:16)
[2022-04-20] MEDS ORDERED: IV NS 0.9% 250 ML IV ONE (08:40)
[2022-04-20] MEDS: BRILINTA 90 MG PO SCH ×2 (08:40→17:26)
[2022-04-20] MEDS ORDERED: IOHEXOL-350 100 ML VIAL IV ONE (08:40)
[2022-04-20] MEDS: ENOXAPARIN SODIUM 40 MG/0.4 ML DISP.SYRIN SQ SCH (08:41)
[2022-04-20] MEDS: ISOSORBIDE MONONITRATE (30MG) 30 MG TAB.SR.24H PO SCH (08:41)
[2022-04-20] MEDS: METOPROLOL TARTRATE 50 MG TABLET PO SCH ×2 (08:41→21:25)
[2022-04-20] MEDS: MAGNESIUM OXIDE 400 MG TABLET PO SCH (08:41)
[2022-04-20] MEDS: AMLODIPINE BESYLATE 5 MG TABLET PO SCH ×2 (08:41→17:16)
--- NOTE | 2022-04-20 10:02 | NUR ---
MACHINE STAKER NOTES PATIENT COMPLAINT OF 10/10 BILATERAL FEET PAIN AND NAUSEA, REQUESTING MEDICATION. PRN DILAUDED 0.5 MG IVP AND ONDANSETRON 4 MG IVP ADMINISTERED ORDERED. WILL CONTINUE TO MONITOR FOR S/S PAIN AND NAUSEA.
[2022-04-20] MEDS: INSULIN REGULAR, HUMAN 100 UNIT/ML 3 ML VIAL SQ PRN ×2 (13:01→18:39)
--- NOTE | 2022-04-20 18:00 | NUR ---
VICE PRESIDENT OF PRODUCT MARKETING NOTES PATIENT NOTED WITH BILATERAL FEET PAIN AND REQUESTING PAIN MEDICATION. DILAUDED 2 MG/DL WITHDRAWN FROM OMNICELL, PATIENT WAS PRESCRIBED DILAUDED 1 MG/DL. MEDICATION UNABLE TO BE SCANNED FOR ADMINISTRATION DUE TO DIFFERENT CONCENTRATION, MEDICATION WAS WASTED, WITNESSED BY CARBONATION EQUIPMENT TENDER. MEDICATION NOT ADMINISTERED. PHARMACY MADE AWARE.
--- NOTE | 2022-04-20 18:44 | NUR ---
SALESPERSON SHOES NOTES PATIENT COMPLAINT OF NAUSEA AND REQUESTING MEDICATION. PRN ONDANSETRON 4 MG IVP ADMINISTERED ORDERED. WILL CONTINUE TO MONITOR FOR S/S NAUSEA.
--- NOTE | 2022-04-20 19:00 | NUR ---
PHYSICIAN OFFICE SECRETARY CLOSING NOTES PATIENT LAYING IN BED, A/O X 4, ABLE TO MAKE NEEDS KNOWN. TOLERATING WELL ON ROOM AIR WITH NO SOB OR RESPIRATORY DISTRESS. NO COMPLAINTS OF PAIN OR DISCOMFORT AT THIS TIME. ON TELE MONITOR READING SR 70. R HAND # 24 G SL AND RFA # 20 G CLEAN, INTACT, AND FLUSHING WELL. SAFETY MEASURES IN PLACE: BED IN LOWEST LOCKED POSITION, SIDE RAILS UP X 2, CALL LIGHT WITHIN REACH. ALL NEEDS MET. WILL ENDORSE TO MANAGER DRUG FOR [facility].
[2022-04-20] MEDS: LIDOCAINE 5% (PATCH) 1 EA PATCH TP SCH (19:20)
--- NOTE | 2022-04-20 19:58 | NUR ---
DIRECTOR COUNSELING BUREAU OPENING NOTES PATIENT LAYING IN BED, A/O X 4, ABLE TO MAKE NEEDS KNOWN.TELE MONITOR READING SR 72 TOLERATING WELL ON ROOM AIR WITH NO COMPLAINTS OF SOB OR RESPIRATORY DISTRESS. NO COMPLAINTS OF PAIN OR DISCOMFORT AT THIS TIME.IV ACCESS R HAND # 24 G SL AND RFA #20G.CLEAN, INTACT, AND FLUSHING WELL. SAFETY MEASURES IN PLACE: BED IN LOWEST LOCKED POSITION, SIDE RAILS UP X 2, CALL LIGHT WITHIN REACH. WILL CONTINUE TO MONITOR.
[2022-04-20 20:00] VITALS: BP 160/108
[2022-04-20] MEDS: INSULIN GLARGINE, 100 UNIT/ML CARTRIDGE SQ SCH (21:46)
[2022-04-21] VITALS (7 sets, daily range): BP systolic 121–190; BP diastolic 65–108
[2022-04-21] MEDS: ACETAMINOPHEN 325 MG TABLET PO PRN (00:59)
[2022-04-21] MEDS: BLOOD SUGAR DIAGNOSTIC 1 EACH STRIP VI SCH ×4 (05:55→21:02)
[2022-04-21 06:32] LABS: BASOPHILS % (AUTO) 0.2 % (0.0-2.0); EOSINOPHILS % (AUTO) 2.9 % (0.0-6.0); HEMATOCRIT 40 % (33-45); HEMOGLOBIN 13.1 g/dL (11.5-14.8); LYMPHOCYTES # (AUTO) 1.6 K/uL (0.8-4.8); LYMPHOCYTES % (AUTO) 23.8 % (20.0-44.0); MEAN CORPUSCULAR HGB CONC 33 g/dl (31.0-36.0); MEAN CORPUSCULAR VOLUME 83 fL (82-100); MONOCYTES # (AUTO) 0.5 K/uL (0.1-1.30); MONOCYTES % (AUTO) 7.7 % (2.0-12.0); NEUTROPHILS # (AUTO) 4.4 K/uL (1.8-8.9); NEUTROPHILS % (AUTO) 65.4 % (43.0-81.0); PLATELET COUNT (AUTO) 229 K/uL (150-450); RED BLOOD CELL COUNT(AUTO) 4.77 MIL/uL (4.0-5.2); WHITE BLOOD COUNT (AUTO) 6.8 K/uL (4.3-11.0)
[2022-04-21 06:44] LABS: CALCIUM, SERUM 9.6 mg/dL (8.5-10.1); CREATININE 1.3 mg/dL (0.6-1.3); MAGNESIUM 2.1 mg/dL (1.8-2.4); PHOSPHORUS 3.1 mg/dL (2.5-4.9); POTASSIUM 3.8 mmol/L (3.5-5.1)
--- NOTE | 2022-04-21 06:47 | NUR ---
HELICOPTER PILOT CLOSING NOTES PATIENT SLEEPING IN BED BUT EASY TO AROUSED.A/O X 4,TOLERATING WELL ON ROOM AIR WITH NO SOB OR RESPIRATORY DISTRESS. NO COMPLAINTS OF PAIN OR DISCOMFORT AT THIS TIME. ON TELE MONITOR READING SR 76. R HAND # 24 G SL AND RFA # 20 G CLEAN, INTACT, AND FLUSHING WELL. SAFETY MEASURES IN PLACE: BED IN LOWEST LOCKED POSITION, SIDE RAILS UP X 2, CALL LIGHT WITHIN REACH. ALL NEEDS MET. WILL ENDORSE TO OPTICIAN APPRENTICE FOR [facility].
--- NOTE | 2022-04-21 07:30 | NUR ---
SOLUTION CONSULTANT OPENING NOTES RECEIVED PATIENT ON BED, AWAKE AND A/O X4. ON ROOM AIR TOLERATING WELL. NO SOB NOTED. NOT IN DISTRESS. WITH COMPLAINTS OF PAIN AT THE LEFT KNEE AT THE SCALE OF 5/10. COMFORT MEASURES PROVIDED. ON TELE MONITOR CURRENTLY READING SINUS RHYTHM AT 61BPM. WITH IV ACCESS AT THE RIGHT HAND G24 AND AT THE RIGHT FOREARM G20, BOTH SALINE LOCKED, PATENT AND INTACT. SAFETY MEASURES IN PLACED. CALL LIGHT WITHIN REACH. BED ON LOWEST LOCKED POSITION, SIDE RAILS UP X2. WILL CONTINUE TO MONITOR.
[2022-04-21] MEDS: BRILINTA 90 MG PO SCH ×2 (08:52→17:24)
[2022-04-21] MEDS: MAGNESIUM OXIDE 400 MG TABLET PO SCH (08:53)
[2022-04-21] MEDS: AMLODIPINE BESYLATE 5 MG TABLET PO SCH ×2 (08:53→17:23)
[2022-04-21] MEDS: ISOSORBIDE MONONITRATE (30MG) 30 MG TAB.SR.24H PO SCH (08:54)
[2022-04-21] MEDS: hydrALAZINE HCL 50 MG TABLET PO SCH ×3 (08:56→17:24)
[2022-04-21] MEDS: ENOXAPARIN SODIUM 40 MG/0.4 ML DISP.SYRIN SQ SCH (08:56)
[2022-04-21] MEDS: METOPROLOL TARTRATE 50 MG TABLET PO SCH ×2 (09:00→21:02)
[2022-04-21] MEDS: HYDROMORPHONE 1 MG/1 ML DISP.SYRIN IV PRN ×2 (09:05→17:56)
[2022-04-21] MEDS: INSULIN REGULAR, HUMAN 100 UNIT/ML 3 ML VIAL SQ PRN ×2 (11:55→17:55)
[2022-04-21] MEDS: LIDOCAINE 5% (PATCH) 1 EA PATCH TP SCH (17:14)
--- NOTE | 2022-04-21 18:24 | NUR ---
RADIO PERSONALITY CLOSING NOTES PATIENT ON BED, AWAKE AND A/O X4. ON ROOM AIR TOLERATING WELL. NO SOB NOTED. NOT IN DISTRESS. WITH COMPLAINTS OF PAIN AT THE LEFT KNEE AT THE SCALE OF 5/10. COMFORT MEASURES PROVIDED. ON TELE MONITOR CURRENTLY READING SINUS RHYTHM AT 80BPM. WITH IV ACCESS AT THE RIGHT HAND G24 AND AT THE RIGHT FOREARM G20, BOTH SALINE LOCKED, PATENT AND INTACT. DUE MEDS GIVEN. SAFETY MEASURES IN PLACED. CALL LIGHT WITHIN REACH. BED ON LOWEST LOCKED POSITION, SIDE RAILS UP X2. WILL ENDORSE TO NEXT SHIFT FOR [facility].
--- NOTE | 2022-04-21 19:25 | NUR ---
RN OPENING NOTES RECEIVED PT IN BED, AWAKE, WITH DAUGHTER AT BEDSIDE. AOx4, ABLE TO MAKE NEEDS KNOWN. ON RA AND TOLERATING WELL. NO SOB NOTED. NO S/SX OF RESPIRATORY DISTRESS NOTED. TELE MONITOR DETECTS SINUS RHYTHM. IV ACCESS IN R HAND #24 G AND R FA # 20G. IV IS INTACT, PATENT, AND FLUSHING WELL. SAFETY PRECAUTIONS IN PLACE: BED IN LOWEST, LOCKED POSITION, SIDERAILS UPx2, AND BRAKES ON. TABLE AND CALL LIGHT WITHIN REACH. WILL CONTINUE TO MONITOR.
[2022-04-21] MEDS: INSULIN GLARGINE, 100 UNIT/ML CARTRIDGE SQ SCH (21:03)
[2022-04-21] MEDS: *INSULIN REGULAR(HUMULIN R)HUM 100 UNIT/ML VIAL SQ PRN (21:08)
[2022-04-22] VITALS: BP 148/70
[2022-04-22] MEDS: ACETAMINOPHEN 325 MG TABLET PO PRN (01:35)
[2022-04-22 05:00] VITALS: BP 106/76
[2022-04-22] MEDS: INSULIN REGULAR, HUMAN 100 UNIT/ML 3 ML VIAL SQ PRN ×3 (06:45→16:48)
[2022-04-22] MEDS: BLOOD SUGAR DIAGNOSTIC 1 EACH STRIP VI SCH ×4 (06:45→21:24)
--- NOTE | 2022-04-22 06:46 | NUR ---
RN CLOSING NOTES PT IN BED, ASLEEP, AWAKENS TO VERBAL STIMULI. AOx4, ABLE TO MAKE NEEDS KNOWN. ON RA AND TOLERATING WELL. NO SOB NOTED. NO S/SX OF RESPIRATORY DISTRESS NOTED. TELE MONITOR DETECTS SINUS RHYTHM WITH RATE OF 69. IV ACCESS IN R HAND #24 G AND R FA # 20G. IV IS INTACT, PATENT, AND FLUSHING WELL. ALL ORDERS CARRIED OUT. ALL NEEDS MET. PT KEPT CLEAN AND DRY. SAFETY PRECAUTIONS IN PLACE: BED IN LOWEST, LOCKED POSITION, SIDERAILS UPx2, AND BRAKES ON. TABLE AND CALL LIGHT WITHIN REACH. WILL ENDORSE TO ONCOMING SHIFT FOR [facility].
[2022-04-22 07:06] LABS: BASOPHILS % (AUTO) 0.2 % (0.0-2.0); EOSINOPHILS % (AUTO) 3.8 % (0.0-6.0); HEMATOCRIT 40 % (33-45); HEMOGLOBIN 12.6 g/dL (11.5-14.8); LYMPHOCYTES # (AUTO) 1.5 K/uL (0.8-4.8); LYMPHOCYTES % (AUTO) 20.4 % (20.0-44.0); MEAN CORPUSCULAR HGB CONC 32 g/dl (31.0-36.0); MEAN CORPUSCULAR VOLUME 87 fL (82-100); MONOCYTES # (AUTO) 0.5 K/uL (0.1-1.30); MONOCYTES % (AUTO) 7.2 % (2.0-12.0); NEUTROPHILS % (AUTO) 68.4 % (43.0-81.0); PLATELET COUNT (AUTO) 222 K/uL (150-450); RED BLOOD CELL COUNT(AUTO) 4.57 MIL/uL (4.0-5.2); WHITE BLOOD COUNT (AUTO) 7.3 K/uL (4.3-11.0)
[2022-04-22 07:28] LABS: CALCIUM, SERUM 9.3 mg/dL (8.5-10.1); CARBON DIOXIDE 24 mmol/L (21-32); CHLORIDE 103 mmol/L (98-107); CREATININE 1.3 mg/dL (0.6-1.3); GLUCOSE 91 mg/dL (74-106); MAGNESIUM 2.2 mg/dL (1.8-2.4); POTASSIUM 3.8 mmol/L (3.5-5.1); SODIUM SERUM 137 mmol/L (136-145); UREA NITROGEN, BLOOD 28 mg/dL (7-18)
--- NOTE | 2022-04-22 07:31 | NUR ---
PL SQL PROGRAMMER OPENING NOTE RECEIVED PT IN BED ASLEEP, EASILY AROUSE. A/O X4, ABLE TO MAKE NEEDS KNOWN. ON RA, TOLERATING WELL. BREATHING EVEN AND UNLABORED. NOT IN ANY SIGN OF RESPIRATORY DISTRESS. ON CARDIAC TELE MONITOR WITH CURRENT READING OF NORMAL SR, HR 75. NO COMPLAIN OF CARDIAC DISCOMFORT OR DISTRESS VOICED AT THIS TIME. IV ACCESS ON R HAND G #24 AND RFA G #20, INTACT AND PATENT. SAFETY MEASURES IN PLACE: BED IN LOWEST AND LOCKED POSITION, SIDE RAILS UPX2, CALL LIGHT WITHIN REACH. WILL CONTINUE TO MONITOR PT AND WITH PLAN OF CARE.
[2022-04-22] MEDS: MAGNESIUM OXIDE 400 MG TABLET PO SCH (08:26)
[2022-04-22] MEDS: METOPROLOL TARTRATE 50 MG TABLET PO SCH ×2 (08:27→21:00)
[2022-04-22] MEDS: hydrALAZINE HCL 50 MG TABLET PO SCH ×3 (08:28→16:22)
[2022-04-22] MEDS: ISOSORBIDE MONONITRATE (30MG) 30 MG TAB.SR.24H PO SCH (08:28)
[2022-04-22] MEDS: AMLODIPINE BESYLATE 5 MG TABLET PO SCH ×2 (08:28→16:21)
[2022-04-22] MEDS: BRILINTA 90 MG PO SCH ×2 (08:30→16:22)
[2022-04-22] MEDS: ENOXAPARIN SODIUM 40 MG/0.4 ML DISP.SYRIN SQ SCH (08:31)
[2022-04-22] MEDS: HYDROMORPHONE 1 MG/1 ML DISP.SYRIN IV PRN ×3 (08:59→23:19)
--- NOTE | 2022-04-22 09:05 | NUR ---
RN NOTE PT COMPLAINED OF L LEG PAIN WITH PAIN LEVEL OF 8/10. DILAUDID 0.5MG IVP ADMINISTERED ORDERED PRN AT 0859. WILL REASSESS PT.
--- NOTE | 2022-04-22 10:44 | NUR ---
RN NOTES CONSENT FORM FOR LEFT HEART CATHETERIZATION POSSIBLE PCI SIGNED BY PATIENT AT 1000 AND PLACED IN THE CHART.
--- NOTE | 2022-04-22 15:31 | NUR ---
RN NOTES CONSENT FORM FOR ABDOMINAL AORTIC ANGIOGRAM WITH RUNOFF AND POSSIBLE INTERVENTION SIGNED BY PATIENT AND PLACED IN THE CHART.
--- NOTE | 2022-04-22 16:01 | NUR ---
RN NOTE PT COMPLAINED OF L LEG PAIN WITH PAIN LEVEL OF 8/10. DILAUDID 0.5MG IVP ADMINISTERED ORDERED PRN AT 1600. PARTIAL WASTE WAS WITNESS BY SCOTT LILLY. WILL REASSESS PT.
[2022-04-22] MEDS: LIDOCAINE 5% (PATCH) 1 EA PATCH TP SCH (17:35)
--- NOTE | 2022-04-22 18:46 | NUR ---
HAND CIGAR MAKING SUPERVISOR CLOSING NOTE PT IN BED AWAKE. A/O X4, ABLE TO MAKE NEEDS KNOWN. ON RA, TOLERATING WELL. BREATHING EVEN AND UNLABORED. NOT IN ANY SIGN OF RESPIRATORY DISTRESS. ON CARDIAC TELE MONITOR WITH CURRENT READING OF NORMAL SR, HR 68. NO COMPLAIN OF CARDIAC DISCOMFORT OR DISTRESS VOICED AT THIS TIME. IV ACCESS ON R HAND G #24 AND RFA G #20, INTACT AND PATENT. ALL NEEDS ATTENDED. SAFETY MEASURES IN PLACE: BED IN LOWEST AND LOCKED POSITION, SIDE RAILS UPX2, CALL LIGHT WITHIN REACH. WILL ENDORSE TO REGIONAL MERCHANDISING MANAGER NURSE FOR [facility].
--- NOTE | 2022-04-22 19:26 | NUR ---
MANAGER COLLECTION OPENING NOTE PT IN BED AWAKE. A/O X4, ABLE TO MAKE NEEDS KNOWN. ON RA, TOLERATING WELL. BREATHING EVEN AND UNLABORED. NOT IN ANY SIGN OF RESPIRATORY DISTRESS. ON CARDIAC TELE MONITOR WITH CURRENT READING OF NORMAL SR, HR 68. NO COMPLAIN OF CARDIAC DISCOMFORT OR DISTRESS VOICED AT THIS TIME. IV ACCESS ON R HAND G #24 AND RFA G #20, INTACT AND PATENT. ALL NEEDS ATTENDED. SAFETY MEASURES IN PLACE: BED IN LOWEST AND LOCKED POSITION, SIDE RAILS UPX2, CALL LIGHT WITHIN REACH. WILL CONTINUE TO MONITOR.
[2022-04-22 20:00] VITALS: BP 109/76
[2022-04-22] MEDS: INSULIN GLARGINE, 100 UNIT/ML CARTRIDGE SQ SCH (21:24)
[2022-04-22] MEDS: *INSULIN REGULAR(HUMULIN R)HUM 100 UNIT/ML VIAL SQ PRN (21:25)
--- NOTE | 2022-04-22 21:25 | NUR ---
FISHER LOBSTER NOTES pt refused bp med and insulin coverage pt stated " my blood pressure is okay i don't need that medication right now an di wont be eating until tomorrow maybe at night i don't need insulin either if i take it my sugar will get very low. risk and benefits explained x3 refused x3. will continue to monitor.
[2022-04-22] MEDS: ONDANSETRON HCL/PF 4 MG/2 ML VIAL IV PRN (23:20)
[2022-04-23] VITALS: BP 136/75
[2022-04-23 00:04] VITALS: BP 136/73
[2022-04-23 04:00] VITALS: BP_SYST 129; BP_SYST 151; BP_DIAS 71; BP_DIAS 75
[2022-04-23 06:11] LABS: BASOPHILS % (AUTO) 0.3 % (0.0-2.0); EOSINOPHILS % (AUTO) 5.4 % (0.0-6.0); HEMATOCRIT 38 % (33-45); HEMOGLOBIN 12.5 g/dL (11.5-14.8); LYMPHOCYTES # (AUTO) 1.6 K/uL (0.8-4.8); LYMPHOCYTES % (AUTO) 28.1 % (20.0-44.0); MEAN CORPUSCULAR HGB CONC 33 g/dl (31.0-36.0); MEAN CORPUSCULAR VOLUME 84 fL (82-100); MONOCYTES # (AUTO) 0.4 K/uL (0.1-1.30); MONOCYTES % (AUTO) 7.3 % (2.0-12.0); NEUTROPHILS # (AUTO) 3.4 K/uL (1.8-8.9); NEUTROPHILS % (AUTO) 58.9 % (43.0-81.0); PLATELET COUNT (AUTO) 214 K/uL (150-450); RED BLOOD CELL COUNT(AUTO) 4.54 MIL/uL (4.0-5.2); WHITE BLOOD COUNT (AUTO) 5.8 K/uL (4.3-11.0)
--- NOTE | 2022-04-23 06:29 | NUR ---
INSPECTING AND TESTING LEAD HAND CLOSING NOTE PT IN BED AWAKE. A/O X4, ABLE TO MAKE NEEDS KNOWN. ON RA, TOLERATING WELL. BREATHING EVEN AND UNLABORED. NOT IN ANY SIGN OF RESPIRATORY DISTRESS. ON CARDIAC TELE MONITOR WITH CURRENT READING OF NORMAL SR, HR 60. NO COMPLAIN OF CARDIAC DISCOMFORT OR DISTRESS VOICED AT THIS TIME. IV ACCESS ON R HAND G #24 AND RFA G #20, INTACT AND PATENT. ALL NEEDS ATTENDED. PT HAS BEEN NPO SINCE MIDNIGHT. PT IS BEING PREPARED PT FOR PROCEDURE BY OR NURSES AT THIS TIME. NEW IV ACCESS L HAND [address]: BED IN LOWEST AND LOCKED POSITION, SIDE RAILS UPX2, CALL LIGHT WITHIN REACH. WILL CONTINUE TO MONITOR.
[2022-04-23] MEDS ORDERED: IODIXANOL 150 ML IV ONE ×2 (06:48→08:01)
[2022-04-23] MEDS ORDERED: IV NS 0.9% 1,000 ML ONE (06:48)
[2022-04-23] MEDS ORDERED: IV SET PRIMARY PUMP SET 1 EA INFUS.SET MC ONE (06:48)
[2022-04-23] MEDS ORDERED: LIDOCAINE HCL/PF 1% 30 ML SDV ONE (06:49)
--- NOTE | 2022-04-23 06:54 | NUR ---
ACTIVITY COORDINATOR NOTES PT LEFT FLOOR ON THE WAY TO [employer] [facility]PART[facility].
[2022-04-23 07:05] LABS: CALCIUM, SERUM 9.5 mg/dL (8.5-10.1); CARBON DIOXIDE 27 mmol/L (21-32); CHLORIDE 103 mmol/L (98-107); CREATININE 1.4 mg/dL (0.6-1.3); GLUCOSE 123 mg/dL (74-106); MAGNESIUM 2.2 mg/dL (1.8-2.4); PHOSPHORUS 3.7 mg/dL (2.5-4.9); SODIUM SERUM 139 mmol/L (136-145); UREA NITROGEN, BLOOD 25 mg/dL (7-18)
[2022-04-23] MEDS ORDERED: NITROGLYCERIN IN 5 % DEXTROSE 250 ML IV ONE (07:05)
[2022-04-23] MEDS ORDERED: HEPARIN SODIUM, PORCINE 1,000 UNIT/ML VIAL ONE (07:10)
[2022-04-23] MEDS ORDERED: MIDAZOLAM HCL 2 MG/2ML VIAL ONE (07:10)
[2022-04-23] MEDS ORDERED: FENTANYL PF 100MCG/2ML AMPUL ONE (07:10)
[2022-04-23] MEDS ORDERED: diphenhydrAMINE HCL 50 MG/ML VIAL ONE (07:26)
--- NOTE | 2022-04-23 07:29 | NUR ---
WAREHOUSE ATTENDANT OPENING NOTE PT CURRENTLY NOT IN UNIT. PT IS IN YOUTH MINISTRY DIRECTOR FOR A L HEART CATH PROCEDURE.
[2022-04-23] MEDS: BLOOD SUGAR DIAGNOSTIC 1 EACH STRIP VI SCH ×4 (07:33→21:11)
[2022-04-23] MEDS ORDERED: NICARDIPINE HCL 25 MG/10 ML VIAL IV ONE (07:41)
[2022-04-23] MEDS: METOPROLOL TARTRATE 50 MG TABLET PO SCH ×3 (09:00→21:04)
[2022-04-23] MEDS: ENOXAPARIN SODIUM 40 MG/0.4 ML DISP.SYRIN SQ SCH (09:00)
[2022-04-23] MEDS: hydrALAZINE HCL 50 MG TABLET PO SCH ×4 (09:00→17:08)
[2022-04-23] MEDS: MAGNESIUM OXIDE 400 MG TABLET PO SCH ×2 (09:00→09:51)
[2022-04-23] MEDS: BRILINTA 90 MG PO SCH ×3 (09:00→17:07)
[2022-04-23] MEDS: AMLODIPINE BESYLATE 5 MG TABLET PO SCH ×3 (09:00→17:08)
[2022-04-23] MEDS: ISOSORBIDE MONONITRATE (30MG) 30 MG TAB.SR.24H PO SCH ×2 (09:00→09:52)
--- NOTE | 2022-04-23 09:30 | NUR ---
RN NOTES PT CAME BACK AT 0915 FROM [facility] FOR POST LEFT HEART CATH AND ABDOMINAL AORTIC ANGIOGRAM. RECEIVED REPORT FROM SENIOR UX DEVELOPER NURSE RADHA. PT REMAINS STABLE. RIGHT GROIN POST PUNCTURE SITE NOTED WITH DRY DRESSING IN PLACE WITH NO BLEEDING NOTED. INSTRUCTED PT TO KEEP LEG STRAIGHT FOR 4 HRS PER PROTOCOL AND SAFETY MEASURES PROVIDED. WILL CONTINUE TO MONITOR PT.
--- NOTE | 2022-04-23 09:53 | NUR ---
RN NOTE LOVENOX NOT ADMINISTERED PT JUST CAME BACK FROM [facility] FOR PROCEDURE.
[2022-04-23] MEDS: HYDROMORPHONE 1 MG/1 ML DISP.SYRIN IV PRN ×3 (10:02→19:35)
[2022-04-23 11:28] VITALS: BP 126/78
[2022-04-23] MEDS: INSULIN REGULAR, HUMAN 100 UNIT/ML 3 ML VIAL SQ PRN ×2 (12:10→17:11)
--- NOTE | 2022-04-23 14:57 | NUR ---
RN NOTE PT COMPLAINED OF L LEG PAIN WITH PAIN LEVEL OF 9/10. DILAUDID 0.5MG IVP ADMINISTERED ORDERED PRN AT 1600. PARTIAL WASTE WAS WITNESS BY SCOTT KOENIG. WILL REASSESS PT. Addendum: 04/23/22 at 1458 by SONIA BORGES RN TIME ERROR DILAUDID PRN ADMINISTERED AT 1456.
[2022-04-23 16:36] VITALS: BP 129/68
[2022-04-23] MEDS: LIDOCAINE 5% (PATCH) 1 EA PATCH TP SCH (19:29)
--- NOTE | 2022-04-23 19:30 | NUR ---
BODY PRESSER CLOSING NOTE PT IN BED AWAKE. A/O X4, ABLE TO MAKE NEEDS KNOWN. ON RA, TOLERATING WELL. BREATHING EVEN AND UNLABORED. NOT IN ANY SIGN OF RESPIRATORY DISTRESS. ON CARDIAC TELE MONITOR WITH CURRENT READING OF NORMAL SR, HR 60. NO COMPLAIN OF CARDIAC DISCOMFORT OR DISTRESS VOICED AT THIS TIME. IV ACCESS ON L HAND G #18G INTACT AND PATENT. ALL NEEDS ATTENDED. BED IN LOWEST AND LOCKED POSITION, SIDE RAILS UPX2, CALL LIGHT WITHIN REACH. WILL CONTINUE TO MONITOR.
--- NOTE | 2022-04-23 19:33 | NUR ---
CLAIMS ADMINISTRATOR CLOSING NOTE PT IN BED AWAKE. A/O X4, ABLE TO MAKE NEEDS KNOWN. ON RA, TOLERATING WELL. BREATHING EVEN AND UNLABORED. NOT IN ANY SIGN OF RESPIRATORY DISTRESS. ON CARDIAC TELE MONITOR WITH CURRENT READING OF NORMAL SR, HR 74. NO COMPLAIN OF CARDIAC DISCOMFORT OR DISTRESS VOICED AT THIS TIME. IV ACCESS ON L HAND G #18, INTACT AND PATENT. ALL NEEDS ATTENDED. SAFETY MEASURES IN PLACE: BED IN LOWEST AND LOCKED POSITION, SIDE RAILS UPX2, CALL LIGHT WITHIN REACH. ENDORSED TO FLORIST MANAGER NURSE FOR [facility].
--- NOTE | 2022-04-23 19:38 | NUR ---
PARTITION SETTER NOTES PRN DILAUDID GIVEN FOR PAIN 7/10 ON A NUMERIC PAIN SCALE. TOLERATED WELL. WILL CONTINUE TO MONITOR.
[2022-04-23] MEDS: INSULIN GLARGINE, 100 UNIT/ML CARTRIDGE SQ SCH (21:12)
[2022-04-23] MEDS: *INSULIN REGULAR(HUMULIN R)HUM 100 UNIT/ML VIAL SQ PRN (21:25)
[2022-04-24] VITALS: BP 136/75
[2022-04-24] MEDS: HYDROMORPHONE 1 MG/1 ML DISP.SYRIN IV PRN ×2 (03:22→08:51)
--- NOTE | 2022-04-24 03:27 | NUR ---
television news anchor notes prn Dilaudid given for 7/10 pain tolerated well. will continue to monitor.
[2022-04-24 04:00] VITALS: BP 129/71
[2022-04-24] MEDS: BLOOD SUGAR DIAGNOSTIC 1 EACH STRIP VI SCH ×2 (06:31→12:30)
[2022-04-24] MEDS: INSULIN REGULAR, HUMAN 100 UNIT/ML 3 ML VIAL SQ PRN (06:33)
[2022-04-24 06:36] LABS: BASOPHILS % (AUTO) 0.3 % (0.0-2.0); EOSINOPHILS % (AUTO) 4.4 % (0.0-6.0); HEMATOCRIT 35 % (33-45); HEMOGLOBIN 11.7 g/dL (11.5-14.8); LYMPHOCYTES # (AUTO) 1.3 K/uL (0.8-4.8); LYMPHOCYTES % (AUTO) 20.7 % (20.0-44.0); MEAN CORPUSCULAR HGB CONC 33 g/dl (31.0-36.0); MEAN CORPUSCULAR VOLUME 84 fL (82-100); MONOCYTES # (AUTO) 0.5 K/uL (0.1-1.30); MONOCYTES % (AUTO) 8.1 % (2.0-12.0); NEUTROPHILS # (AUTO) 4.3 K/uL (1.8-8.9); NEUTROPHILS % (AUTO) 66.5 % (43.0-81.0); PLATELET COUNT (AUTO) 205 K/uL (150-450); RED BLOOD CELL COUNT(AUTO) 4.19 MIL/uL (4.0-5.2); WHITE BLOOD COUNT (AUTO) 6.4 K/uL (4.3-11.0)
--- NOTE | 2022-04-24 06:43 | NUR ---
BILLER CLOSING NOTE PT IN BED AWAKE. A/O X4, ABLE TO MAKE NEEDS KNOWN. ON RA, TOLERATING WELL. BREATHING EVEN AND UNLABORED. NOT IN ANY SIGN OF RESPIRATORY DISTRESS. ON CARDIAC TELE MONITOR WITH CURRENT READING OF NORMAL SR, HR 60S. NO COMPLAIN OF CARDIAC DISCOMFORT OR DISTRESS VOICED AT THIS TIME. IV ACCESS ON L HAND G #18, INTACT AND PATENT. ALL NEEDS ATTENDED. SAFETY MEASURES IN PLACE: BED IN LOWEST AND LOCKED POSITION, SIDE RAILS UPX2, CALL LIGHT WITHIN REACH. WILL ENDORSE CARE TO DAY SHIFT NURSE.
--- NOTE | 2022-04-24 07:25 | NUR ---
GEROPSYCHOLOGIST OPENING NOTES RECEIVED PATIENT IN BED AWAKE. A/O X4, ABLE TO MAKE NEEDS KNOWN. ON RA WITH EVEN AND UNLABORED BREATHING. NO S/SX OF RESP DISTRESS NOTED. CARDIAC TELE MONITOR READING SR, HR 66 BPM. NO PAIN VERBALIZED AT THIS TIME. L HAND G #18, INTACT AND PATENT. SAFETY MEASURES IN PLACE: BED IN LOWEST AND LOCKED POSITION, SIDE RAILS UP X2, CALL LIGHT WITHIN REACH. WILL CONTINUE PLAN OF CARE
--- NOTE | 2022-04-24 07:30 | NUR ---
RN NOTES SEEN BY DR ROMAN.
[2022-04-24 07:38] LABS: CALCIUM, SERUM 9.3 mg/dL (8.5-10.1); CARBON DIOXIDE 24 mmol/L (21-32); CHLORIDE 104 mmol/L (98-107); CREATININE 1.4 mg/dL (0.6-1.3); GLUCOSE 153 mg/dL (74-106); POTASSIUM 3.9 mmol/L (3.5-5.1); SODIUM SERUM 139 mmol/L (136-145); UREA NITROGEN, BLOOD 25 mg/dL (7-18)
[2022-04-24 08:00] VITALS: BP 154/96
[2022-04-24] MEDS: ISOSORBIDE MONONITRATE (30MG) 30 MG TAB.SR.24H PO SCH (08:37)
[2022-04-24] MEDS: BRILINTA 90 MG PO SCH (08:37)
[2022-04-24] MEDS: AMLODIPINE BESYLATE 5 MG TABLET PO SCH (08:37)
[2022-04-24] MEDS: MAGNESIUM OXIDE 400 MG TABLET PO SCH (08:38)
[2022-04-24] MEDS: hydrALAZINE HCL 50 MG TABLET PO SCH (08:38)
[2022-04-24] MEDS: ENOXAPARIN SODIUM 40 MG/0.4 ML DISP.SYRIN SQ SCH (08:40)
[2022-04-24] MEDS ORDERED: METOPROLOL TARTRATE 50 MG TABLET PO SCH (09:00)
[2022-04-24] MEDS ORDERED: NITR0.4T48 SL (11:53)
[2022-04-24] MEDS ORDERED: METO50TA16 PO (11:53)
[2022-04-24] MEDS ORDERED: ISOS30TA86 PO (11:53)
[2022-04-24] MEDS ORDERED: HYDR-4077 PO (11:53)
[2022-04-24 12:00] VITALS: BP 126/54
--- NOTE | 2022-04-24 14:00 | NUR ---
INSURANCE VERIFICATION SPECIALIST NOTES PATIENT IS MEDICALLY STABLE FOR DISCHARGE. VSS. DISCHARGE INSTRUCTIONS GONE OVER WITH PATIENT. PATIENT ABLE TO VERBALIZE UNDERSTANDING. SKIN INTACT. ALL BELONGINGS ACCOUNTED FOR AND DOCUMENTS SIGNED. IV ACCESS REMOVED. ID BAND REMOVED. PATIENT LEFT FACILITY IN PRIVATE CAR ACCOMPANIED BY FAMILY.
== END 2022-04-24 14:30 | disposition home health service (06) | DRG 286 ==
LOC: ER 15:25 → TELE 19:58
PROVIDERS: ADMIT Internal Medicine; ATTEND Student in an Organized Health Care Education/Training Program
PROC: 4A023N7 Measurement of Cardiac Sampling and Pressure, Left Heart, Percutaneous Approach (ICD-10-PCS; principal; 2022-04-23)
PROC: B211YZZ Fluoroscopy of Multiple Coronary Arteries using Other Contrast (ICD-10-PCS; 2022-04-23)
PROC: B41DYZZ Fluoroscopy of Aorta and Bilateral Lower Extremity Arteries using Other Contrast (ICD-10-PCS; 2022-04-23)
DX: I25.110 Atherosclerotic heart disease of native coronary artery with unstable angina pectoris (principal); N17.0 Acute kidney failure with tubular necrosis; I13.0 Hypertensive heart and chronic kidney disease with heart failure and stage 1 through stage 4 chronic kidney disease, or unspecified chronic kidney disease; I50.32 Chronic diastolic (congestive) heart failure; K86.1 Other chronic pancreatitis; E87.1 Hypo-osmolality and hyponatremia; I70.222 Atherosclerosis of native arteries of extremities with rest pain, left leg; Z85.841 Personal history of malignant neoplasm of brain; Z20.822 Contact with and (suspected) exposure to COVID-19; N18.9 Chronic kidney disease, unspecified; M19.90 Unspecified osteoarthritis, unspecified site; E11.22 Type 2 diabetes mellitus with diabetic chronic kidney disease; Z87.442 Personal history of urinary calculi; Z98.62 Peripheral vascular angioplasty status; Z98.890 Other specified postprocedural states; Z88.1 Allergy status to other antibiotic agents; Z88.5 Allergy status to narcotic agent; Z79.4 Long term (current) use of insulin; Z79.899 Other long term (current) drug therapy; I25.10 Atherosclerotic heart disease of native coronary artery without angina pectoris; Z98.61 Coronary angioplasty status; E11.51 Type 2 diabetes mellitus with diabetic peripheral angiopathy without gangrene; E78.5 Hyperlipidemia, unspecified; E66.9 Obesity, unspecified; Z68.34 Body mass index [BMI] 34.0-34.9, adult; Z90.49 Acquired absence of other specified parts of digestive tract; Z80.9 Family history of malignant neoplasm, unspecified; Z82.49 Family history of ischemic heart disease and other diseases of the circulatory system; I35.0 Nonrheumatic aortic (valve) stenosis; E86.1 Hypovolemia; E27.8 Other specified disorders of adrenal gland; I70.1 Atherosclerosis of renal artery; Z79.02 Long term (current) use of antithrombotics/antiplatelets; K42.9 Umbilical hernia without obstruction or gangrene
CPT/HCPCS: 36415; 71045-TC; 73564-TC; 75625; 80048-TC; 80061-TC; 80076-TC; 82962-TC; 83735-TC; 83880; 84100-TC; 84439-TC; 84443-TC; 84484-TC; 85025-TC; 85610-TC; 85730-TC; 87081-TC; 93307-TC; 93926-TC; 93970-TC; C1769; C1887; C1894; C9803; G0378; G0500; J1170; J1200; J1644; J1650; J1815; J1885; J2250; J2405; J3010; J3490; J7030; J7050; Q0162; Q9967

== ENCOUNTER 2023-12-15 12:47 | Inpatient (IN) | payer MEDICARE, OTHER ==
[~2023-12-15] VITALS: Ht 160 cm; Wt 77.1 kg
[2023-12-15] MEDS: ENOXAPARIN SODIUM 30 MG/0.3 ML DISP.SYRIN SQ SCH (00:25)
[~2023-12-15 12:47] MED LIST changes: +AMLO-212 PO; -ASPI-1169 PO; -BISA10SU11 RC; +CLON0.1T PO; -ESOM40CA PO; -GABA-532 PO; +HYDR-4077 PO; +ISOS30TA86 PO; +MAGN400T26 PO; -METO-357 PO; +METO50TA16 PO; +NITR0.4T48 SL; -OLME1TAB16 PO; +ONDA4TAB5 PO; -PANT40TA49 PO; -POTA-10 PO; -SIMV-49 PO; -SUCR1TAB31 PO
[2023-12-15] MEDS: IV NS 0.9% 1,000 ML BAG IV ONE (13:20)
[2023-12-15 13:50] LABS: BASOPHILS % (AUTO) 0.1 % (0.0-2.0); EOSINOPHILS # (AUTO) 0.1 K/uL (0.0-0.7); EOSINOPHILS % (AUTO) 0.9 % (0.0-6.0); HEMATOCRIT 29 % (33-45); HEMOGLOBIN 9.4 g/dL (11.5-14.8); LYMPHOCYTES # (AUTO) 0.8 K/uL (0.8-4.8); LYMPHOCYTES % (AUTO) 7.6 % (20.0-44.0); MEAN CORPUSCULAR HEMOGLOBIN 27 PG (26.0-33.0); MEAN CORPUSCULAR HGB CONC 32 g/dl (31.0-36.0); MEAN CORPUSCULAR VOLUME 85 fL (82-100); MONOCYTES # (AUTO) 0.5 K/uL (0.1-1.30); MONOCYTES % (AUTO) 4.3 % (2.0-12.0); NEUTROPHILS # (AUTO) 9.7 K/uL (1.8-8.9); NEUTROPHILS % (AUTO) 87.1 % (43.0-81.0); PLATELET COUNT (AUTO) 188 K/uL (150-450); RED BLOOD CELL COUNT(AUTO) 3.44 MIL/uL (4.0-5.2); WHITE BLOOD COUNT (AUTO) 11.1 K/uL (4.3-11.0)
[2023-12-15 13:57] LABS: CALCIUM, SERUM 8.6 mg/dL (8.5-10.1); CARBON DIOXIDE 23 mmol/L (21-32); CHLORIDE 104 mmol/L (98-107); CREATININE 1.5 mg/dL (0.6-1.3); GLUCOSE 155 mg/dL (74-106); POTASSIUM 4.5 mmol/L (3.5-5.1); SODIUM SERUM 136 mmol/L (136-145); UREA NITROGEN, BLOOD 68 mg/dL (7-18)
[2023-12-15] MEDS: FAMOTIDINE/PF INJ 20 MG/2 ML VIAL IV ONE (14:00)
[2023-12-15] MEDS ORDERED: FAMOTIDINE/PF INJ 20 MG/2 ML VIAL IV ONE (14:01)
[2023-12-15 14:13] LABS: ALANINE AMINOTRANSFERASE 18 U/L (12-78); ALBUMIN 3.1 g/dL (3.4-5.0); ALKALINE PHOSPHATASE 56 U/L (46-116); ASPARTATE AMINOTRANSFERASE 14 U/L (15-37); BILIRUBIN,DIRECT 0.1 mg/dL (0.0-0.2); BILIRUBIN,TOTAL 0.3 mg/dL (0.2-1.0); TOTAL PROTEIN, SERUM 5.8 g/dL (6.4-8.2)
[2023-12-15 14:19] LABS: INR 1.03 (0.91-1.10); PARTIAL THROMBOPLASTIN TIME 23.3 SEC (24.3-34.3); PROTHROMBIN TIME 10.9 SECS (9.2-11.1)
[2023-12-15] MEDS ORDERED: SIMV-49 PO (14:58)
[2023-12-15] MEDS ORDERED: BLOO-668 IN (14:58)
[2023-12-15] MEDS ORDERED: FLUT1DIS3 IH (14:58)
[2023-12-15] MEDS ORDERED: IBUP-1957 PO (14:58)
[2023-12-15] MEDS ORDERED: OLME40TA12 PO (14:58)
[2023-12-15] MEDS ORDERED: SENN-261 PO (14:58)
[2023-12-15] MEDS ORDERED: ERGO500040 PO (14:58)
[2023-12-15] MEDS ORDERED: INSU3INS9 SQ (14:58)
[2023-12-15] MEDS ORDERED: ASPI1TAB2 PO (14:58)
[2023-12-15 18:24] LABS: APPEARANCE,URINE SLIGHTLY CLOUDY (CLEAR); BILIRUBIN,URINE NEGATIVE (NEGATIVE); BLOOD, URINE NEGATIVE Ery/uL (NEGATIVE); COLOR,URINE YELLOW (YELLOW); KETONES,URINE NEGATIVE (NEGATIVE); LEUKOCYTE ESTERASE ,URINE 2+ (NEGATIVE); NITRITE, URINE NEGATIVE (NEGATIVE); PH,URINE 5.5 (5.0-8.0); PROTEIN,URINE NEGATIVE (NEGATIVE); UGLUCOSE 2+ mg/dL (NEGATIVE); UROBILINOGEN,URINE 0.2 EU/dL (0.2)
[2023-12-15] MEDS ORDERED: MAGNESIUM HYDROXIDE 30 ML UDC PO PRN (18:30)
[2023-12-15] MEDS ORDERED: Z GUARD REMEDY 4 OZ OINT TP PRN (18:30)
[2023-12-15] MEDS ORDERED: MAG HYDROX/AL HYDROX/SIMETH 30 ML UDC PO PRN (18:30)
[2023-12-15] MEDS ORDERED: ZOLPIDEM TARTRATE 5 MG TABLET PO PRN (18:30)
[2023-12-15 18:31] LABS: ADD URINE CULTURE YES; BACTERIA,URINE 2+ /HPF (None Seen); RBC,URINE 0-2 /HPF (0-2); WBC,URINE 21-50 /HPF (0-3)
[2023-12-15] MEDS ORDERED: ACETAMINOPHEN 325 MG TABLET ONE (18:50)
[2023-12-15] MEDS: ACETAMINOPHEN 325 MG TABLET PO PRN (18:57)
[2023-12-15] MEDS: LIXISENATIDE SQ SCH (19:00)
[2023-12-15] MEDS ORDERED: DISOPYRAMIDE PHOSPHATE 150 MG CAPSULE PO PRN (19:00)
[2023-12-15] MEDS ORDERED: CLONIDINE HCL 0.1 MG TABLET PO PRN (19:00)
[2023-12-15] MEDS: INSULIN GLARGINE SQ SCH (19:00)
[2023-12-15] MEDS: Medication Not On Formulary EA (Insulin Glargine/Lixisenatide (Soliqua 100 Unit-33 Mcg/m SQ SCH (19:00)
[2023-12-15] MEDS: ALBUTEROL FS 2.5 MG/0.5 ML VIAL.NEB NEB SCH (19:41)
[2023-12-15] MEDS ORDERED: ALBUTEROL FS 2.5 MG/0.5 ML VIAL.NEB ONE (19:43)
[2023-12-15 19:48] VITALS: O2SAT 96
[2023-12-15 20:03] VITALS: O2SAT 99
[2023-12-15] MEDS ORDERED: NITROGLYCERIN PACKET 1 GM PACKET ONE (20:14)
[2023-12-15] MEDS: NITROGLYCERIN PACKET 1 GM PACKET TD ONE (20:19)
[2023-12-15] MEDS ORDERED: IBUPROFEN 400 MG TABLET ONE (20:32)
[2023-12-15] MEDS: IBUPROFEN 400 MG TABLET PO SCH (20:34)
[2023-12-15] MEDS ORDERED: ONDANSETRON HCL/PF 4 MG/2 ML VIAL ONE (20:49)
[2023-12-15] MEDS: ONDANSETRON HCL/PF 4 MG/2 ML VIAL IVP PRN (20:50)
[2023-12-15] MEDS: IV 1/2NS 1000 ML 1,000 ML IV PRN (22:12)
[2023-12-15] MEDS: HYDROMORPHONE 1 MG/1 ML DISP.SYRIN IV PRN (22:32)
[2023-12-16] VITALS (11 sets, daily range): BP systolic 90–123; BP diastolic 51–68; TEMP 98.3–99.9; O2SAT 91–99
[2023-12-16] MEDS: SENNOSIDES 8.6 MG TABLET PO SCH (00:24)
[2023-12-16] MEDS: BUDESONIDE RESPULE INH 0.5 MG/2 ML AMPUL.NEB NEB SCH (07:37)
[2023-12-16] MEDS: PANTOPRAZOLE 40 MG TABLET.DR PO SCH (08:22)
[2023-12-16] MEDS ORDERED: TICAGRELOR 90 MG TABLET PO SCH ×2 (09:00→17:00)
[2023-12-16] MEDS ORDERED: ASPIRIN/ACETAMINOPHEN/CAFFEINE 1 EACH TABLET PO SCH (09:00)
[2023-12-16] MEDS: LOSARTAN POTASSIUM 50 MG TABLET PO SCH (09:00)
[2023-12-16] MEDS: AMLODIPINE BESYLATE 5 MG TABLET PO SCH (09:00)
[2023-12-16] MEDS: HYDROCODONE/APAP 5/325MG TABLET PO PRN ×2 (09:38→20:32)
[2023-12-16] MEDS: SIMVASTATIN 20 MG TABLET PO SCH (09:46)
[2023-12-16] MEDS: MAGNESIUM OXIDE 400 MG TABLET PO SCH (09:48)
[2023-12-16] MEDS: DAPAGLIFLOZIN PROPANEDIOL 5 MG TABLET PO SCH (10:15)
[2023-12-16 12:02] LABS: BASOPHILS % (AUTO) 0.1 % (0.0-2.0); EOSINOPHILS % (AUTO) 0.1 % (0.0-6.0); HEMATOCRIT 26 % (33-45); HEMOGLOBIN 8.3 g/dL (11.5-14.8); LYMPHOCYTES # (AUTO) 0.5 K/uL (0.8-4.8); LYMPHOCYTES % (AUTO) 4.6 % (20.0-44.0); MEAN CORPUSCULAR HEMOGLOBIN 28 PG (26.0-33.0); MEAN CORPUSCULAR HGB CONC 32 g/dl (31.0-36.0); MEAN CORPUSCULAR VOLUME 87 fL (82-100); MONOCYTES # (AUTO) 0.7 K/uL (0.1-1.30); MONOCYTES % (AUTO) 6.3 % (2.0-12.0); NEUTROPHILS # (AUTO) 9.2 K/uL (1.8-8.9); NEUTROPHILS % (AUTO) 88.9 % (43.0-81.0); PLATELET COUNT (AUTO) 146 K/uL (150-450); RED BLOOD CELL COUNT(AUTO) 2.97 MIL/uL (4.0-5.2); RED CELL DISTRIBUTION WIDTH 15.5 % (11.5-15.0); WHITE BLOOD COUNT (AUTO) 10.4 K/uL (4.3-11.0)
[2023-12-16 12:14] LABS: CALCIUM, SERUM 8.9 mg/dL (8.5-10.1); CARBON DIOXIDE 20 mmol/L (21-32); CHLORIDE 105 mmol/L (98-107); CREATININE 1.4 mg/dL (0.6-1.3); GLUCOSE 150 mg/dL (74-106); MAGNESIUM 2.2 mg/dL (1.8-2.4); PHOSPHORUS 3.4 mg/dL (2.5-4.9); SODIUM SERUM 134 mmol/L (136-145); UREA NITROGEN, BLOOD 67 mg/dL (7-18)
[2023-12-16 12:32] LABS: THYROID STIMULATING HORMONE 0.892 uIU/mL (0.358-3.74)
[2023-12-16 12:35] LABS: THYROID STIMULATING HORMONE 0.821 uIU/mL (0.358-3.74)
[2023-12-16] MEDS ORDERED: HYDROCODONE/APAP 5/325MG TABLET PO PRN (17:00)
[2023-12-16] MEDS ORDERED: DEXTROSE 50%-WATER 50 ML DISP.SYRIN IV PRN (17:30)
[2023-12-16] MEDS: CEFTRIAXONE 1 G in IV D5W 50 ML IV SCH (18:14)
[2023-12-16] MEDS: INSULIN REGULAR, HUMAN 100 UNIT/ML 3 ML VIAL SQ PRN (18:15)
[2023-12-16] MEDS: BLOOD SUGAR DIAGNOSTIC 1 EACH STRIP IN SCH ×2 (18:16→18:17)
[2023-12-16] MEDS: TICAGRELOR 90 MG TABLET PO SCH (18:33)
[2023-12-17] VITALS (50 sets, daily range): BP systolic 86–157; BP diastolic 52–85; TEMP 98.4–99.8; O2SAT 88–99
[2023-12-17 07:47] LABS: CALCIUM, SERUM 9.1 mg/dL (8.5-10.1); CARBON DIOXIDE 14 mmol/L (21-32); CHLORIDE 106 mmol/L (98-107); CREATININE 1.5 mg/dL (0.6-1.3); GLUCOSE 206 mg/dL (74-106); MAGNESIUM 2.7 mg/dL (1.8-2.4); PHOSPHORUS 3.9 mg/dL (2.5-4.9); POTASSIUM 4.3 mmol/L (3.5-5.1); SODIUM SERUM 135 mmol/L (136-145); UREA NITROGEN, BLOOD 55 mg/dL (7-18)
[2023-12-17] MEDS: ASPIRIN/ACETAMINOPHEN/CAFFEINE 1 EACH TABLET PO SCH (09:00)
[2023-12-17] MEDS ORDERED: IV NS 0.9% 1,000 ML BAG IV PRN (10:30)
[2023-12-17] MEDS ORDERED: IV NS 0.9% 1,000 ML BAG IV SCH (10:30)
[2023-12-17] MEDS: SODIUM BICARBONATE SYR 50 MEQ/50 ML DISP.SYRIN IV ONE (10:45)
[2023-12-17] MEDS: IV NS 0.9% 1,000 ML IV SCH (10:46)
[2023-12-17] MEDS: AMIODARONE 150 MG in IV D5W 100 ML IV ONE (11:32)
[2023-12-17 11:33] LABS: HEMATOCRIT 28 % (33-45); HEMOGLOBIN 8.2 g/dL (11.5-14.8); LYMPHOCYTES # (AUTO) 0.6 K/uL (0.8-4.8); LYMPHOCYTES % (AUTO) 5.1 % (20.0-44.0); MEAN CORPUSCULAR HEMOGLOBIN 28 PG (26.0-33.0); MEAN CORPUSCULAR HGB CONC 30 g/dl (31.0-36.0); MEAN CORPUSCULAR VOLUME 93 fL (82-100); MONOCYTES # (AUTO) 0.7 K/uL (0.1-1.30); MONOCYTES % (AUTO) 5.9 % (2.0-12.0); PLATELET COUNT (AUTO) 150 K/uL (150-450); RED BLOOD CELL COUNT(AUTO) 2.95 MIL/uL (4.0-5.2); RED CELL DISTRIBUTION WIDTH 17.3 % (11.5-15.0); WHITE BLOOD COUNT (AUTO) 11.3 K/uL (4.3-11.0)
[2023-12-17] MEDS: AMIODARONE 450 MG in IV D5W 241 ML IV PRN (11:46)
[2023-12-17] MEDS ORDERED: DEXTROSE 50%-WATER 50 ML DISP.SYRIN IV PRN (12:00)
[2023-12-17] MEDS: INSULIN REGULAR, HUMAN 100 UNIT/ML 3 ML VIAL SQ PRN (12:47)
[2023-12-17] MEDS: BLOOD SUGAR DIAGNOSTIC 1 EACH STRIP IN SCH (12:48)
[2023-12-18] VITALS (43 sets, daily range): BP systolic 97–171; BP diastolic 51–118; TEMP 98–99.5; O2SAT 88–100
[2023-12-18 05:32] LABS: HEMATOCRIT 22 % (33-45); HEMOGLOBIN 7.1 g/dL (11.5-14.8); LYMPHOCYTES # (AUTO) 0.6 K/uL (0.8-4.8); LYMPHOCYTES % (AUTO) 4.9 % (20.0-44.0); MEAN CORPUSCULAR HEMOGLOBIN 27 PG (26.0-33.0); MEAN CORPUSCULAR HGB CONC 32 g/dl (31.0-36.0); MEAN CORPUSCULAR VOLUME 86 fL (82-100); MONOCYTES # (AUTO) 0.5 K/uL (0.1-1.30); MONOCYTES % (AUTO) 4.3 % (2.0-12.0); NEUTROPHILS # (AUTO) 10.2 K/uL (1.8-8.9); NEUTROPHILS % (AUTO) 90.8 % (43.0-81.0); PLATELET COUNT (AUTO) 159 K/uL (150-450); RED BLOOD CELL COUNT(AUTO) 2.59 MIL/uL (4.0-5.2); WHITE BLOOD COUNT (AUTO) 11.3 K/uL (4.3-11.0)
[2023-12-18 06:02] LABS: ALANINE AMINOTRANSFERASE 55 U/L (12-78); ALBUMIN 2.9 g/dL (3.4-5.0); ALKALINE PHOSPHATASE 45 U/L (46-116); ASPARTATE AMINOTRANSFERASE 212 U/L (15-37); BILIRUBIN,TOTAL 0.2 mg/dL (0.2-1.0); CALCIUM, SERUM 8.4 mg/dL (8.5-10.1); CARBON DIOXIDE 23 mmol/L (21-32); CHLORIDE 112 mmol/L (98-107); CREATININE 1.4 mg/dL (0.6-1.3); GLUCOSE 214 mg/dL (74-106); MAGNESIUM 2.2 mg/dL (1.8-2.4); PHOSPHORUS 2.8 mg/dL (2.5-4.9); POTASSIUM 3.8 mmol/L (3.5-5.1); SODIUM SERUM 145 mmol/L (136-145); TOTAL PROTEIN, SERUM 5.6 g/dL (6.4-8.2); UREA NITROGEN, BLOOD 41 mg/dL (7-18)
[2023-12-18 08:00] LABS: ABG BASE EXCESS -8.3 mmol/L; ABG PCO2 32.1 mmHg (35.0-45.0); ABG PH 7.334 (7.350-7.450); ABG PO2 72.1 mmHg (75.0-100.0); AaDO2 140.1 mmHg; COHb 0.4 % (0.5-1.5); MetHb 0.3 % (0.0-1.5); O2Hb 90.4 % (94.0-97.0); SITE, ABG Right Brachial
[2023-12-18 08:02] LABS: ABG OXYGEN SATURATION 87.8 % (92.0-98.5); ABG PCO2 31.5 mmHg (35.0-45.0); ABG PH 7.402 (7.350-7.450); ABG PO2 59.5 mmHg (75.0-100.0); ABG TOTAL HEMOGLOBIN 7.7 G/dL (12.0-16.0); AaDO2 131.8 mmHg; COHb 1.1 % (0.5-1.5); MetHb 0.2 % (0.0-1.5); O2Hb 86.7 % (94.0-97.0); SITE, ABG Right Brachial
[2023-12-18] MEDS: FUROSEMIDE 100 MG/10 ML VIAL IV SCH (10:03)
[2023-12-18] MEDS: CEFEPIME 2 GM in IV D5W 100 ML IV SCH (16:41)
[2023-12-18] MEDS: VANCOMYCIN 0.75 GM in IV D5W 250 ML IV SCH (16:41)
[2023-12-18] MEDS: TICAGRELOR 90 MG TABLET PO SCH (20:35)
[2023-12-19] VITALS (44 sets, daily range): BP systolic 76–186; BP diastolic 40–129; TEMP 97.8–100; O2SAT 91–100
[2023-12-19 05:04] LABS: BASOPHILS % (AUTO) 0.1 % (0.0-2.0); HEMATOCRIT 27 % (33-45); HEMOGLOBIN 8.8 g/dL (11.5-14.8); LYMPHOCYTES # (AUTO) 0.9 K/uL (0.8-4.8); LYMPHOCYTES % (AUTO) 5.1 % (20.0-44.0); MEAN CORPUSCULAR HEMOGLOBIN 28 PG (26.0-33.0); MEAN CORPUSCULAR HGB CONC 33 g/dl (31.0-36.0); MEAN CORPUSCULAR VOLUME 85 fL (82-100); MONOCYTES # (AUTO) 0.7 K/uL (0.1-1.30); MONOCYTES % (AUTO) 3.9 % (2.0-12.0); NEUTROPHILS # (AUTO) 16.2 K/uL (1.8-8.9); NEUTROPHILS % (AUTO) 90.9 % (43.0-81.0); PLATELET COUNT (AUTO) 167 K/uL (150-450); RED BLOOD CELL COUNT(AUTO) 3.14 MIL/uL (4.0-5.2); RED CELL DISTRIBUTION WIDTH 15.7 % (11.5-15.0); WHITE BLOOD COUNT (AUTO) 17.8 K/uL (4.3-11.0)
[2023-12-19 05:20] LABS: ALANINE AMINOTRANSFERASE 72 U/L (12-78); ALBUMIN 3.1 g/dL (3.4-5.0); ALKALINE PHOSPHATASE 47 U/L (46-116); ASPARTATE AMINOTRANSFERASE 151 U/L (15-37); BILIRUBIN,TOTAL 0.4 mg/dL (0.2-1.0); CALCIUM, SERUM 8.9 mg/dL (8.5-10.1); CARBON DIOXIDE 21 mmol/L (21-32); CHLORIDE 110 mmol/L (98-107); CREATININE 1.8 mg/dL (0.6-1.3); GLUCOSE 210 mg/dL (74-106); MAGNESIUM 2.1 mg/dL (1.8-2.4); PHOSPHORUS 3.3 mg/dL (2.5-4.9); POTASSIUM 3.1 mmol/L (3.5-5.1); SODIUM SERUM 146 mmol/L (136-145); TOTAL PROTEIN, SERUM 6.3 g/dL (6.4-8.2); UREA NITROGEN, BLOOD 45 mg/dL (7-18)
[2023-12-19] MEDS: POTASSIUM CL. PREMIX PERIPHER. 50 ML IV SCH (09:08)
[2023-12-19] MEDS: DIGOXIN INJ 0.5 MG/2 ML AMPUL IV SCH (11:15)
[2023-12-19 12:42] LABS: ABG BASE EXCESS -6.5 mmol/L; ABG OXYGEN SATURATION 92.6 % (92.0-98.5); ABG PO2 80.7 mmHg (75.0-100.0); ABG TOTAL HEMOGLOBIN 7.5 G/dL (12.0-16.0); AaDO2 311.9 mmHg; COHb 0.1 % (0.5-1.5); MetHb 0.1 % (0.0-1.5); O2Hb 92.4 % (94.0-97.0); SITE, ABG Right Brachial; VENT MODE, BG 15 IPAP / 5 EPAP
[2023-12-19 13:13] LABS: ABG BASE EXCESS -3.1 mmol/L; ABG OXYGEN SATURATION 94.8 % (92.0-98.5); ABG PCO2 35.9 mmHg (35.0-45.0); ABG PH 7.392 (7.350-7.450); ABG PO2 91.6 mmHg (75.0-100.0); ABG TOTAL HEMOGLOBIN 9.5 G/dL (12.0-16.0); AaDO2 578.3 mmHg; COHb 0.1 % (0.5-1.5); MetHb 0.2 % (0.0-1.5); O2Hb 94.5 % (94.0-97.0); SITE, ABG Right Brachial; VENT MODE, BG non rebreather
[2023-12-19] MEDS: HYDROMORPHONE 1 MG/1 ML DISP.SYRIN IV PRN (15:02)
[2023-12-19] MEDS: VANCOMYCIN 500 MG in IV D5W 100ml IV SCH (15:54)
[2023-12-19] MEDS ORDERED: MIDAZOLAM HCL 2 MG/2ML VIAL IV PRN (19:00)
[2023-12-20] VITALS (34 sets, daily range): BP systolic 105–175; BP diastolic 31–142; TEMP 98.2–98.6; O2SAT 91–100
[2023-12-20 05:04] LABS: HEMATOCRIT 28 % (33-45); LYMPHOCYTES # (AUTO) 0.6 K/uL (0.8-4.8); LYMPHOCYTES % (AUTO) 4.1 % (20.0-44.0); MEAN CORPUSCULAR HEMOGLOBIN 28 PG (26.0-33.0); MEAN CORPUSCULAR HGB CONC 33 g/dl (31.0-36.0); MEAN CORPUSCULAR VOLUME 86 fL (82-100); MONOCYTES # (AUTO) 0.6 K/uL (0.1-1.30); MONOCYTES % (AUTO) 3.9 % (2.0-12.0); NEUTROPHILS # (AUTO) 13.3 K/uL (1.8-8.9); PLATELET COUNT (AUTO) 169 K/uL (150-450); RED BLOOD CELL COUNT(AUTO) 3.22 MIL/uL (4.0-5.2); RED CELL DISTRIBUTION WIDTH 15.9 % (11.5-15.0); WHITE BLOOD COUNT (AUTO) 14.5 K/uL (4.3-11.0)
[2023-12-20 05:18] LABS: ALANINE AMINOTRANSFERASE 173 U/L (12-78); ALBUMIN 2.5 g/dL (3.4-5.0); ALKALINE PHOSPHATASE 45 U/L (46-116); ASPARTATE AMINOTRANSFERASE 140 U/L (15-37); BILIRUBIN,TOTAL 0.3 mg/dL (0.2-1.0); CALCIUM, SERUM 9.2 mg/dL (8.5-10.1); CARBON DIOXIDE 23 mmol/L (21-32); CHLORIDE 113 mmol/L (98-107); CREATININE 1.9 mg/dL (0.6-1.3); GLUCOSE 178 mg/dL (74-106); MAGNESIUM 2.4 mg/dL (1.8-2.4); PHOSPHORUS 3.2 mg/dL (2.5-4.9); POTASSIUM 3.9 mmol/L (3.5-5.1); SODIUM SERUM 147 mmol/L (136-145); UREA NITROGEN, BLOOD 53 mg/dL (7-18)
[2023-12-20] MEDS: ERGOCALCIFEROL (VITAMIN D 2) 50,000 UNIT CAPSULE PO SCH (09:00)
[2023-12-20] MEDS ORDERED: METOPROLOL TARTRATE INJ 5 MG/5 ML AMPUL IVP PRN (11:00)
[2023-12-20] MEDS: DIGOXIN INJ 0.5 MG/2 ML AMPUL IV SCH (12:09)
[2023-12-20] MEDS: CEFEPIME 2 GM in IV D5W 100 ML IV SCH (22:01)
[2023-12-21] VITALS (27 sets, daily range): BP systolic 57–150; BP diastolic 20–108; TEMP 98–98.8; O2SAT 90–100
[2023-12-21 04:55] LABS: BASOPHILS # (AUTO) 0.1 K/uL (0.0-0.2); BASOPHILS % (AUTO) 0.7 % (0.0-2.0); EOSINOPHILS # (AUTO) 0.1 K/uL (0.0-0.7); EOSINOPHILS % (AUTO) 0.6 % (0.0-6.0); HEMATOCRIT 34 % (33-45); HEMOGLOBIN 10.8 g/dL (11.5-14.8); LYMPHOCYTES # (AUTO) 0.7 K/uL (0.8-4.8); LYMPHOCYTES % (AUTO) 3.9 % (20.0-44.0); MEAN CORPUSCULAR HEMOGLOBIN 28 PG (26.0-33.0); MEAN CORPUSCULAR HGB CONC 31 g/dl (31.0-36.0); MEAN CORPUSCULAR VOLUME 89 fL (82-100); MONOCYTES # (AUTO) 0.7 K/uL (0.1-1.30); MONOCYTES % (AUTO) 4.2 % (2.0-12.0); NEUTROPHILS # (AUTO) 15.6 K/uL (1.8-8.9); NEUTROPHILS % (AUTO) 90.6 % (43.0-81.0); PLATELET COUNT (AUTO) 212 K/uL (150-450); RED BLOOD CELL COUNT(AUTO) 3.86 MIL/uL (4.0-5.2); RED CELL DISTRIBUTION WIDTH 16.8 % (11.5-15.0); WHITE BLOOD COUNT (AUTO) 17.2 K/uL (4.3-11.0)
[2023-12-21 05:22] LABS: ALANINE AMINOTRANSFERASE 158 U/L (12-78); ALBUMIN 2.4 g/dL (3.4-5.0); ALKALINE PHOSPHATASE 59 U/L (46-116); ASPARTATE AMINOTRANSFERASE 78 U/L (15-37); BILIRUBIN,TOTAL 0.5 mg/dL (0.2-1.0); CALCIUM, SERUM 9.6 mg/dL (8.5-10.1); CARBON DIOXIDE 19 mmol/L (21-32); CHLORIDE 115 mmol/L (98-107); CREATININE 1.9 mg/dL (0.6-1.3); GLUCOSE 214 mg/dL (74-106); MAGNESIUM 2.7 mg/dL (1.8-2.4); PHOSPHORUS 4.4 mg/dL (2.5-4.9); POTASSIUM 4.6 mmol/L (3.5-5.1); SODIUM SERUM 148 mmol/L (136-145); TOTAL PROTEIN, SERUM 6.3 g/dL (6.4-8.2); UREA NITROGEN, BLOOD 64 mg/dL (7-18)
[2023-12-21] MEDS: IV D5/ 0.9% NACL 1,000 ML IV PRN (11:35)
[2023-12-21] MEDS: MORPHINE SULFATE PF DRIP 100 MG in IV D5W 96 ML IV PRN (14:18)
[2023-12-22] VITALS (16 sets, daily range): BP systolic 64–81; BP diastolic 34–47; TEMP 97.3–102.9; O2SAT 95–100
[2023-12-22] MEDS: ACETAMINOPHEN 650 MG/SUPP.RECT RC PRN (09:18)
[2023-12-22] MEDS ORDERED: KEY,NONCONTROL,TO KEEP IN PYXI 1 EA MC ONE ×2 (22:48→23:57)
[2023-12-23 07:34] VITALS: O2SAT 95
[2023-12-23 07:47] VITALS: O2SAT 98
[2023-12-23] MEDS ORDERED: LIDOCAINE HCL/MPF 1% 30 ML VIAL IJ ONE (10:09)
[2023-12-23] MEDS ORDERED: BUPIVACAINE 0.5 % PF 150 MG/30 ML VIAL ONE (10:10)
[2023-12-23] MEDS ORDERED: LIDOCAINE 1%-EPI 1:100,000 20 ML VIAL ONE (10:10)
== END 2023-12-23 07:15 | DRG 871 ==
LOC: ER 12:55 → TRANSITION 17:10 → TELE 20:42 → ICU 12-17 09:30 → HOSPICE1 12-22 11:25 → HOSPICE 12-22 11:42
PROVIDERS: ADMIT Student in an Organized Health Care Education/Training Program
PROC: 05H533Z Insertion of Infusion Device into Right Subclavian Vein, Percutaneous Approach (ICD-10-PCS; 2023-12-17)
PROC: B546ZZA Ultrasonography of Right Subclavian Vein, Guidance (ICD-10-PCS; 2023-12-17)
PROC: 5A09457 Assistance with Respiratory Ventilation, 24-96 Consecutive Hours, Continuous Positive Airway Pressure (ICD-10-PCS; principal; 2023-12-18)
PROC: 30233N1 Transfusion of Nonautologous Red Blood Cells into Peripheral Vein, Percutaneous Approach (ICD-10-PCS; 2023-12-18)
DX: A41.9 Sepsis, unspecified organism (principal); G92.8 Other toxic encephalopathy; I21.4 Non-ST elevation (NSTEMI) myocardial infarction; N17.0 Acute kidney failure with tubular necrosis; J96.01 Acute respiratory failure with hypoxia; J69.0 Pneumonitis due to inhalation of food and vomit; N39.0 Urinary tract infection, site not specified; E44.0 Moderate protein-calorie malnutrition; I50.32 Chronic diastolic (congestive) heart failure; I13.0 Hypertensive heart and chronic kidney disease with heart failure and stage 1 through stage 4 chronic kidney disease, or unspecified chronic kidney disease; E87.20 Acidosis, unspecified; K92.0 Hematemesis; G81.01 Flaccid hemiplegia affecting right dominant side; N18.4 Chronic kidney disease, stage 4 (severe); R65.20 Severe sepsis without septic shock; E86.0 Dehydration; D64.9 Anemia, unspecified; E78.5 Hyperlipidemia, unspecified; E27.8 Other specified disorders of adrenal gland; G89.4 Chronic pain syndrome; I48.91 Unspecified atrial fibrillation; Z51.5 Encounter for palliative care; Z79.4 Long term (current) use of insulin; Z79.899 Other long term (current) drug therapy; Z87.11 Personal history of peptic ulcer disease; Z87.440 Personal history of urinary (tract) infections; Z87.442 Personal history of urinary calculi; Z95.5 Presence of coronary angioplasty implant and graft; G47.33 Obstructive sleep apnea (adult) (pediatric); E11.51 Type 2 diabetes mellitus with diabetic peripheral angiopathy without gangrene; E11.22 Type 2 diabetes mellitus with diabetic chronic kidney disease; B96.20 Unspecified Escherichia coli [E. coli] as the cause of diseases classified elsewhere; Z66 Do not resuscitate; Z90.49 Acquired absence of other specified parts of digestive tract; I70.1 Atherosclerosis of renal artery; Z68.30 Body mass index [BMI] 30.0-30.9, adult; K42.9 Umbilical hernia without obstruction or gangrene; M89.8X9 Other specified disorders of bone, unspecified site; E11.65 Type 2 diabetes mellitus with hyperglycemia; I25.10 Atherosclerotic heart disease of native coronary artery without angina pectoris; Z79.02 Long term (current) use of antithrombotics/antiplatelets; N20.0 Calculus of kidney; I51.3 Intracardiac thrombosis, not elsewhere classified
CPT/HCPCS: 36415; 36600; 70450-TC; 71045-TC; 71250-TC; 72125-TC; 74018; 80048-TC; 80053-TC; 80061-TC; 80076-TC; 81001; 82728-TC; 82803-TC; 82962-TC; 83540-TC; 83605-TC; 83735-TC; 83880; 84100-TC; 84439-TC; 84443-TC; 84484-TC; 85025-TC; 85730-TC; 86850-TC; 87040-TC; 87086-TC; 93307-TC; 94799-TC; A4223; A6253; G0378; J0282; J0692; J0696; J1160; J1170; J1650; J1815; J1940; J2274; J2405; J3370; J3480; J3490; J7030; J7042; J7050; J7060; P9016